=== PATIENT | male | born 1940 | race Caucasian/White ===

== ENCOUNTER 2020-03-22 10:49 | Emergency (ER) | payer OTHER, MEDICARE, SELFPAY ==
[2020-03-22 10:54] VITALS: BP 158/70; PULSE 70; RESP 18; TEMP 36.7; O2SAT 95; BMI 35.4
--- NOTE | 2020-03-22 11:14 | XRR_ITS ---
PROCEDURE INFORMATION: Exam: XR Left Shoulder Exam date and time: 03/22/2020 11:34 AM Age: 79 years old Clinical indication: Pain; Shoulder; Left; Pain x 2weeks TECHNIQUE: Imaging protocol: XR Left shoulder. Views: 2 or more views. COMPARISON: No relevant prior studies available. FINDINGS: Bones/joints: There is tapering of the distal clavicle which could be due to prior surgery or posttraumatic osteolysis. The glenohumeral joint is grossly within normal limits. Soft tissues: No acute soft tissue abnormality. Other findings: The acromiohumeral interval is normal. XR/XR shoulder LT min 2V* [id number] IMPRESSION: No acute osseous abnormality.
[2020-03-22 13:51] VITALS: BP 139/74; PULSE 69; RESP 18; O2SAT 95
--- NOTE | 2020-03-22 13:51 | ED_ITS ---
HPI - Extremity Problem General: Chief complaint: Extremity Injury, Upper Stated complaint: L SHOULDER & BACK PAIN Time Seen by Provider: 03/22/20 10:56 History of Present Illness: HPI Narrative: 79-year-old male comes in with a shoulder strain. He was seen yesterday at the [place] given anti-inflammatories muscle relaxers and steroids is still giving him quite a bit of pain. He denies any shortness of breath or diaphoresis with it with some related to motion only. He has no chest pain. MD Complaint: other (Upper back pain) Onset (ago): day(s) Pain Consistency: constant Location: left Quality: aching Radiation: none Relieving factors: cold therapy, medication and rest Exacerbating factors: range of motion and palpation Associated symptoms: Deny chest pain, fever(s), rash or short of breath Review of Systems Const: Denies: fever(s), chills, body aches, change in appetite, fatigue or malaise ENMT: Denies: throat pain, ear or mastoid pain, nasal discharge or nasal congestion Card: Denies: chest pain, edema, dyspnea on exertion or orthopnea Resp: Denies: dyspnea, productive cough or non-productive cough GI: Denies: abdominal pain, nausea, vomiting, hematemesis, coffee ground emesis, diarrhea, constipation, bloating, hematochezia or melena : Denies: flank pain, dysuria, urinary frequency or urinary urgency Skin/Breast: Denies: rash or pruritus Physical Exam Const: COMMON NORMALS: no acute distress GENERAL APPEARANCE: cooperative and comfortable ORIENTATION/CONSCIOUSNESS: Yes awake, Yes oriented to person, Yes oriented to place and Yes oriented to time HENMT: COMMON NORMALS: normocephalic and atraumatic HEAD & SCALP: normocephalic and atraumatic Eye: COMMON NORMALS: Equal, round and reactive pupils present, EOMs intact bilaterally, conjunctivae normal and no scleral icterus CONJUNCTIVA: Yes conjunctivae normal PUPIL: Yes Equal, round and reactive pupils present Neck/C-Spine: COMMON NORMALS: full ROM, no lymphadenopathy, supple and no JVD Lymph: LYMPHATIC: no lymphadenopathy noted and no lymphedema noted Resp: COMMON NORMALS: normal respiratory effort, No retractions, No use of accessory muscles and clear to auscultation bilaterally AUSCULTATION: clear to auscultation bilaterally Cardio: COMMON NORMALS: no JVD, regular rate, regular rhythm and No murmurs present (Cardio) RATE: regular rate RHYTHM: regular rhythm GI: COMMON NORMALS: Soft to palpation and No hepatosplenomegaly present AUSCULTATION: Yes normoactive bowel sounds PALPATION: Yes Soft to palpation, No Tenderness to palpation present (GI), No Guarding due to palpation present (GI) and Yes No hepatosplenomegaly present Extremity: COMMON NORMALS: normal to inspection, capillary refill normal, no clubbing, cyanosis or edema, no calf tenderness and no pedal edema Neuro: SENSORIUM/ORIENTATION: Yes oriented to person, Yes oriented to place and Yes oriented to time Skin: COMMON NORMALS: no rashes or lesions noted GENERAL SKIN EXAM: no rashes or lesions noted Course Vital Signs: Vital signs: Vital Signs Temperature 98.0 F 03/22/20 10:54 Pulse Rate 69 03/22/20 13:51 Respiratory Rate 18 03/22/20 13:51 Blood Pressure 139/74 03/22/20 13:51 Pulse Oximetry 95 03/22/20 13:51 MDM - Extremity (Nontraumatic) MDM Narrative: Medical decision making narrative: Reproducible pain with palpation and range of motion. Continue previously prescribed medications. Also give him some tramadol to use PRN follow-up with his primary care doctor if has worsening problems recheck or changes recheck as well in emergency room. Discharge Plan Discharge Patient Disposition: Home Clinical Impression: Right shoulder strain Condition: Stable Prescriptions: New tramadol 50 mg tablet 50 mg PO Q8H PRN (Reason: pain) Qty: 30 RF: 0 No Action multivitamin Tablet 1 tab PO DAILY RF: 0 Lasix 40 mg Tablet 40 mg PO DAILY RF: 0 prednisone 5 mg Tablet 5 mg PO DAILY RF: 0 nifedipine 30 mg Tablet Extended Release 30 mg PO DAILY RF: 0 famotidine 20 mg Tablet 20 mg PO BID RF: 0 Flomax 0.4 mg Capsule 0.4 mg PO DAILY RF: 0 levothyroxine 150 mcg Tablet 150 mcg PO DAILY RF: 0 Advair Diskus 500-50 mcg/dose Blister With Device 1 inh INHALATION DAILY RF: 0 Colace 100 mg Capsule 200 mg PO DAILY RF: 0 gabapentin 100 mg Capsule 100 mg PO BID RF: 0 losartan 100 mg Tablet 100 mg PO DAILY RF: 0 colestipol 1 gram Tablet 2 g PO BID RF: 0 loratadine 10 mg Tablet 10 mg PO DAILY RF: 0 Vitamin D3 25 mcg (1,000 unit) Capsule 25 mcg PO DAILY RF: 0 bupropion HCl 150 mg Tablet Extended Release 24 Hr 150 mg PO BID RF: 0 metoprolol tartrate 25 mg Tablet 25 mg PO DAILY RF: 0 Spiriva with HandiHaler 18 mcg Capsule, W/Inhalation Device 1 cap INHALATION DAILY RF: 0 metformin 1,000 mg Tablet,Er Ponce.Retention 24 Hr See Rx Instructions .ROUTE .COMPLEX RF: 0 Glucos Chond Cplx Advanced 750 mg-100 mg- 125 mg-1.65 mg Tablet 1 tab PO DAILY RF: 0 Fish Oil 1,000 mg (120 mg-180 mg) Capsule 1 cap PO BID RF: 0 Discharge Orders: Discharge Order (Routine); Ordered 03/22/20 Ordered By: Edilberto Mello Referrals: Melissa Ramirez FNP [Primary Care Provider] - Discharge Diet: Advance as tolerated Discharge Activity: Limit activity as instructed Activity Restrictions/Additional Instructions: Follow-up with your primary care doctor if this persists for potential referral for further imaging Discharge Date/Time: 03/22/20 13:52 Coding Level of Care Code ED 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
== END 2020-03-22 13:52 | disposition home or self-care (01) ==
PROVIDERS: Emergency Provider Family Medicine; PCP Nurse Practitioner
DX: S46.911A Strain of unspecified muscle, fascia and tendon at shoulder and upper arm level, right arm, initial encounter (principal); X58.XXXA Exposure to other specified factors, initial encounter
CPT/HCPCS: 12345; 73030; 99281; 99282

== ENCOUNTER 2020-04-09 06:00 | Outpatient (RCR) | payer OTHER, SELFPAY | END 2020-04-23 23:59 | disposition home or self-care (01) | LOC: WPT 06:00 | PROVIDERS: PCP Nurse Practitioner; Referring Provider Nurse Practitioner Family; Visit Provider Nurse Practitioner Family | DX: S46.89 Other injury of other muscles, fascia and tendons at shoulder and upper arm level (principal); X58.XXXD Exposure to other specified factors, subsequent encounter | CPT/HCPCS: 97110; 97163 ==

== ENCOUNTER 2020-04-23 10:46 | Outpatient (CLI) | payer MEDICARE, OTHER, SELFPAY ==
--- NOTE | 2020-04-23 11:00 | MR_ITS ---
WS: [id number] MRI THORACIC SPINE noncontrast. HISTORY: M51.34 Other intervertebral disc degeneration, back pain. COMPARISON: None available. TECHNIQUE: Multiplanar sequences are performed in sagittal and axial planes. Mild straightening of the normal thoracic spine. T5 and T11 hemangiomas. No fracture. No acute marrow edema. Signal within the cord is normal. T1-2: Normal. T2-3: Normal. T3-4: Small RIGHT paracentral protrusion without stenosis. T4-5: Normal. T5-6: Normal. T6-7: Normal. T7-8: Normal. T8-9: Mild bilateral facet joint arthritis with mild foraminal narrowing. T9-10: Mild bilateral facet joint arthritis and foraminal narrowing. Increased T2 signal in the LEFT pedicle of T8 10. Probably a small hemangioma. T10-11: Mild facet joint arthritis. Ligamentum flavum hypertrophy and osteophytes encroach upon the posterior lateral thecal sac. Mild bilateral foraminal narrowing. T11-12: Mild facet joint arthritis. Mild ectasia of the descending thoracic aorta with no aneurysm. The arch is not well visualized nor t he ascending aorta. MR/MR thoracic spin wo con* [id number] IMPRESSION: 1. No significant central or foraminal stenosis. 2. Mild bilateral foraminal stenosis from T8-9 through T10-11. 3. Normal signal through the thoracic cord.
--- NOTE | 2020-04-23 11:08 | MR_ITS ---
WS: [id number] MRI LEFT SHOULDER HISTORY: STRAIN OF MUSCLE,FASCIA AND TENDON COMPARISON: LEFT shoulder radiographs 03/22/2020. TECHNIQUE: Multiplanar sequences of the shoulder joint are submitted. There is artifact in the soft tissues near the distal LEFT clavicle which is probably from prior surg ksenia. Patient did not provide a history of prior shoulder surgery. Micrometallic artifacts are noted. Partial resection of the distal clavicle. There is significant increased signal in the subacromial an d subdeltoid bursa which is probably postsurgical. There is a small amount of increased signal along the bursal surface of the distal supraspinatus tend on. Very small bursal surface tear is suspected. Majority of the tendon is intact. There is no muscle atrophy or edema. No os acromion. Biceps tendon is not identified in the bicipital groove and could be dislocated or ruptured. There is also increased signal in the anterior labrum suspicious intrasubs tance degeneration. Cannot confirm tear. Osteophytic ridging around the humeral head. Mild glenohumeral joint arthropathy with loss of cartila ge over the glenoid. MR/MR shoulder LT wo con* [id number] IMPRESSION: 1. Extensive postsurgical changes are noted near the AC joint. Prior resection of the distal clavicle. 2. Minimal bursal surface tear of the distal supraspinatus. 3. No muscle atrophy. 4. Chronic arthritic changes surrounding the humeral head and at the glenoid. 5. Suspect dislocated or torn biceps tendon. Biceps tendon is not identified i n the bicipital groove.
--- NOTE | 2020-04-23 13:14 | XRR_ITS ---
PROCEDURE INFORMATION: Exam: XR Thoracic Spine, 3 Views Exam date and time: 04/23/2020 1:17 PM Age: 80 years old Clinical indication: Condition or disease; Other: Ddd; Additional info: Ddd thoracic spine TECHNIQUE: Imaging protocol: XR of the thoracic spine, 3 views. COMPARISON: MR thoracic spin wo con* [id number] 04/23/2020 11:31 AM FINDINGS: Vertebrae: Degenerative change. No acute bony injury or malalignment. Soft tissues: Normal caliber of the paraspinous soft tissues. Intraperitoneal space: Surgical clips in the right upper quadrant. XR/XR thoracic spine 3V* [id number] IMPRESSION: Degenerative change.
--- NOTE | 2020-04-23 13:14 | XRR_ITS ---
PROCEDURE INFORMATION: Exam: XR Cervical Spine, 2 or 3 Views Exam date and time: 04/23/2020 1:17 PM Age: 80 years old Clinical indication: Condition or disease; Other: Ddd; Additional info: Ddd cervical spine TECHNIQUE: Imaging protocol: XR of the cervical spine, 2 or 3 views. COMPARISON: No relevant prior studies available. FINDINGS: Vertebrae: Multilevel degenerative change. Anatomic alignment. No instability. Soft tissues: Ligamentous calcification. XR/XR cervical spine fl/ex [id number] IMPRESSION: Multilevel degenerative change.
== END 2020-04-23 10:47 | disposition home or self-care (01) ==
LOC: RADSHAW 10:46
PROVIDERS: Visit Provider Nurse Practitioner Family
DX: M50.30 Other cervical disc degeneration, unspecified cervical region (principal); M51.34 Other intervertebral disc degeneration, thoracic region; Z98.890 Other specified postprocedural states; M48.04 Spinal stenosis, thoracic region
CPT/HCPCS: 72040; 72072; 72146; 73221

== ENCOUNTER 2021-01-18 14:02 | Emergency (ER) | payer MEDICARE, OTHER, SELFPAY ==
[2021-01-18 14:10] VITALS: BP 133/61; PULSE 48; RESP 14; TEMP 37.1; O2SAT 95; BMI 34.7
--- NOTE | 2021-01-18 14:35 | XR_ITS ---
WS: [id number] Exam: XR chest 1V portable [id number] Date/Time of Exam: 01/18/2021 3:18 PM Reason For Exam: CP No previous. Findings: The lungs are clear and fully expanded. Costophrenic angles are sharp. No infiltrates. Bronchovascula r relief appears normal. Cardiac silhouette is unremarkable. Bony elements are intact. XR/XR chest 1V portable [id number] IMPRESSION: Unremarkable chest radiograph.
--- NOTE | 2021-01-18 14:35 | ECG_ITS ---
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 Measurements Intervals [place] Rate: 54 P: 12 SC: 218 QRS: 74 QRSD: 170 T: 74 QT: 462 QTc: 440 Interpretive Statements SINUS BRADYCARDIA WITH FIRST DEGREE AV BLOCK RIGHT BUNDLE BRANCH BLOCK [120+ ms QRS DURATION, UPRIGHT V1, 40+ ms S IN I/aVL/V4/V5/V6] INTERPRETATION BASED ON A DEFAULT AGE OF 40 YEARS No previous ECG available for comparison Electronically Signed On 01-19-2021 9:46:45 CDT by Tori Cole M.D. [id number] f
--- NOTE | 2021-01-18 14:43 | ED_ITS ---
HPI - Weakness General: Chief complaint: Weakness Stated complaint: low bp and shoulder pain Time Seen by Provider: 01/18/21 14:12 Source: patient and family () Mode of arrival: ambulatory Limitations: no limitations History of Present Illness: HPI Narrative: This is an 80-year-old male who presents to the emergency department today with neck pain, pain in both shoulders. Symptoms started this morning. When he checked his BP, the systolic was in the 170's, and later it dropped to the 110's. Both upper extremities are weak. No dizziness. No fever, no chest pain, no difficulty breathing. He denies any urinary symptoms but endorses generalized weakness. MD Complaint: generalized weakness Onset (ago): hour(s) Duration: constant Location: generalized Relieving factors: none Exacerbating factors: none Associated symptoms: Reports headache(s); Denies chest pain, chills, confusion, melena, decreased appetite, diaphoresis, dysuria, easy bruising, fever(s), myalgias, nausea, rash, short of breath, syncope or vomiting Review of Systems General: Reports: 10 or more systems reviewed and unremarkable except in HPI and below Const: Denies: fever(s), chills or diaphoresis Card: Denies: chest pain or syncope GI: Denies: nausea, vomiting or melena : Denies: dysuria Neuro: Reports: headache(s); Denies: confusion Efrain/Lymph: Denies: easy bruising [facility] ED PFSH: Medical History (Updated 01/18/21 @ 18:29 by Sumi Bateman MD, [facility]) BPH (benign prostatic hyperplasia) COPD (chronic obstructive pulmonary disease) DDD (degenerative disc disease), cervical DDD (degenerative disc disease), thoracic Diabetes mellitus Essential hypertension GERD (gastroesophageal reflux disease) Hypothyroid Left shoulder strain Surgical History (Reviewed 01/18/21 @ 14:47 by Smui Bateman MD, [facility]) S/P angioplasty S/P cholecystectomy S/P partial thyroidectomy Patient has 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 S/P rotator cuff repair bilateral Physical Exam Const: COMMON NORMALS: no acute distress, average body habitus, patient oriented x3, no limitations, healthy appearing, alert and well nourished HENMT: COMMON NORMALS: normocephalic, atraumatic and moist oral mucous membranes HEAD & SCALP: normocephalic and atraumatic Neck/C-Spine: COMMON NORMALS: full ROM, supple, no meningeal signs, no JVD and No carotid bruits Resp: COMMON NORMALS: normal respiratory effort, No retractions, No use of accessory muscles, clear to auscultation bilaterally and percussion normal AUSCULTATION: clear to auscultation bilaterally PERCUSSION: percussion normal Cardio: COMMON NORMALS: no JVD, regular rate, regular rhythm, S1 normal heart sound present, S2 normal heart sound present, No gallops present (Cardio), No clicks present (Cardio), No murmurs present (Cardio), No rub (Cardio) and Peripheral pulses 2+ throughout RATE: regular rate RHYTHM: regular rhythm HEART SOUNDS: S1 normal heart sound present and S2 normal heart sound present PERIPHERAL PULSES: Peripheral pulses 2+ throughout GI: COMMON NORMALS: Normal to inspection, nondistended, normoactive bowel sounds present, Soft to palpation, non-tender, No hepatosplenomegaly present, no masses and no bruits PALPATION: Yes Soft to palpation and Yes No hepatosplenomegaly present Extremity: COMMON NORMALS: normal to inspection, full ROM, capillary refill normal, no calf tenderness and no pedal edema Neuro: COMMON NORMALS: patient oriented x3 SENSORIUM/ORIENTATION: Yes alert MENINGEAL SIGNS: Yes no meningeal signs Skin: COMMON NORMALS: no rashes or lesions noted, no wounds, turgor normal, no jaundice, no petechiae and no mottling GENERAL SKIN EXAM: no rashes or lesions noted and turgor normal Course ED course: 1610: Updated him on his initial troponin and his labs. Baseline troponin mildly elevated with 22-hour troponin. Patient and his voiced understanding and they are in agreement with the plan. Reevaluation(s): Reevaluation #1: Discussed his lab and imaging findings with him. Unremarkable. We will discharge him home. He voiced understanding and is in agreement with the plan. Time: 18:26 Vital Signs: Vital signs: Vital Signs Temperature 98.7 F 01/18/21 14:10 Pulse Rate 56 L 01/18/21 14:50 Respiratory Rate 18 01/18/21 14:50 Blood Pressure 134/74 01/18/21 14:50 Pulse Oximetry 96 01/18/21 14:50 MDM - Weakness MDM Narrative: Medical decision making narrative: 80-year-old male who presented to the emergency department with bilateral shoulder pain. Evaluation in the emergency department was negative. He has especially screen for ACS and it was negative. He is discharged home with no new orders. Medical Records: Attestation: I reviewed the patient's medical records. Lab Data: Attestation: I reviewed the patient's lab results. Labs: Lab Results 01/18/21 01/18/21 01/18/21 Range/Units 14:50 14:50 14:50 WBC 7.5 (4.0-10.0) 10^3/ uL RBC 4.78 (4.1-5.3) 10^6/u L Hgb 14.1 (11.7-16.6) g/dL Hct 43.3 (42.0-52.0) % MCV 90.6 (80-94) fL MCH 29.5 (28.0-34.0) pg MCHC 32.6 (30.0-36.0) g/dL RDW 14.2 (12.1-15.1) % Plt Count 255 (130-400) 10^3/c mm MPV 10.1 (7.4-10.4) fL Neut % (Auto) 75.8 % Lymph % (Auto) 16.2 % Butler % (Auto) 4.7 % Eos % (Auto) 2.5 % Baso % (Auto) 0.4 % Neut # (Auto) 5.65 (1.8-7.7) 10^3/u L Lymph # (Auto) 1.2 (0.8-4.8) 10^3/u L Butler # (Auto) 0.4 (0.2-0.9) 10^3/u L Eos # (Auto) 0.2 (0.0-0.8) 10^3/u L Baso # (Auto) 0.0 (0.0-0.1) 10^3/u L Nucleated RBC % (a uto) 0 % Nucleated RBCs # 0.0 /100WBC Sodium 137 (136-145) mmol/L Potassium 4.1 (3.5-5.1) mmol/L Chloride 102 (98-107) mmol/L Carbon Dioxide 23 (22-29) mmol/L Anion Gap 16.1 (5-19) BUN 16 (8-23) mg/dL Creatinine 1.3 H (0.7-1.2) mg/dL GFR Calculation Not Reportable Glucose 147 H (65-115) mg/dL Calculated Osmolal ity 288 (285-295) mOsm/k g Calcium 10.5 (8.5-10.5) mg/dL Total Bilirubin 0.4 (0.15-1.2) mg/dL AST 31 (0-40) U/L ALT 54 H (0-41) U/L Alkaline Phosphata se 102 (40-130) IU/L Troponin T Baselin e 22 H (0-15) ng/L Troponin T 120 Min marycruz (0-15) ng/L Delta Troponin T (0-10) ABS# NT-Pro-B Natriuret Pep 131 (0-450) pg/mL Total Protein 6.7 (6.6-8.7) g/dL Albumin 4.5 (3.5-5.2) g/dL Globulin 2.2 (1.3-4.6) g/dL Urine Color (Yellow) Urine Appearance (CLEAR) Urine pH (5-7) Ur Specific Gravit y (1.005-1.030) Urine Protein (Negative) Urine Glucose (UA) (Normal) Urine Ketones (Negative) Urine Blood (Negative) Urine Nitrate (Negative) Urine Bilirubin (Negative) Urine Urobilinogen (Negative) mg/dL Ur Leukocyte Rocio ase (Negative) 01/18/21 01/18/21 Range/Units 16:50 17:10 WBC (4.0-10.0) 10^3/ uL RBC (4.1-5.3) 10^6/u L Hgb (11.7-16.6) g/dL Hct (42.0-52.0) % MCV (80-94) fL MCH (28.0-34.0) pg MCHC (30.0-36.0) g/dL RDW (12.1-15.1) % Plt Count (130-400) 10^3/c mm MPV (7.4-10.4) fL Neut % (Auto) % Lymph % (Auto) % Butler % (Auto) % Eos % (Auto) % Baso % (Auto) % Neut # (Auto) (1.8-7.7) 10^3/u L Lymph # (Auto) (0.8-4.8) 10^3/u L Butler # (Auto) (0.2-0.9) 10^3/u L Eos # (Auto) (0.0-0.8) 10^3/u L Baso # (Auto) (0.0-0.1) 10^3/u L Nucleated RBC % (a uto) % Nucleated RBCs # /100WBC Sodium (136-145) mmol/L Potassium (3.5-5.1) mmol/L Chloride (98-107) mmol/L Carbon Dioxide (22-29) mmol/L Anion Gap (5-19) BUN (8-23) mg/dL Creatinine (0.7-1.2) mg/dL GFR Calculation Glucose (65-115) mg/dL Calculated Osmolal ity (285-295) mOsm/k g Calcium (8.5-10.5) mg/dL Total Bilirubin (0.15-1.2) mg/dL AST (0-40) U/L ALT (0-41) U/L Alkaline Phosphata se (40-130) IU/L Troponin T Baselin e (0-15) ng/L Troponin T 120 Min marycruz 16.65 H (0-15) ng/L Delta Troponin T -5.35 L (0-10) ABS# NT-Pro-B Natriuret Pep (0-450) pg/mL Total Protein (6.6-8.7) g/dL Albumin (3.5-5.2) g/dL Globulin (1.3-4.6) g/dL Urine Color Yellow (Yellow) Urine Appearance Clear (CLEAR) Urine pH 6 (5-7) Ur Specific Gravit y 1.005 (1.005-1.030) Urine Protein Neg (Negative) Urine Glucose (UA) Norm (Normal) Urine Ketones Negative (Negative) Urine Blood Neg (Negative) Urine Nitrate Negative (Negative) Urine Bilirubin Neg (Negative) Urine Urobilinogen Norm (Negative) mg/dL Ur Leukocyte Rocio ase Negative (Negative) Imaging Data^: CXR: Attestation: I personally reviewed and interpreted this imaging study as follows: Radiologist's impression: [facility], [place] [address]GRcq ReportSigned Patient: Donnie Gonzales #: [id number]: 1940Acct#:[id number]/Sex: 80 / MADM Date: 01/18/21Loc: ERRoom/Bed:Attending Dr: Ordering Provider/Ordering MD: Sumi Bateman MD, [facility] Date of Service: 01/18/21 Procedure(s): XR chest 1V portable [id number] Accession Number(s): [id number] Report Number: [id number] WS: [id number] Exam: XR chest 1V portable [id number] Date/Time of Exam: 01/18/2021 3:18 PM Reason For Exam: CP No previous. Findings: The lungs are clear and fully expanded. Costophrenic angles are sharp. No infiltrates. Bronchovascular relief appears normal. Cardiac silhouette is unremarkable. Bony elements are intact. XR/XR chest 1V portable [id number] IMPRESSION: Unremarkable chest radiograph. Dictated By:Sahniigned By:Kraig Bailey Date/Time:01/18/21 1520DD/ 1519 EKG Data^: EKG 1: Attestation: I personally reviewed and interpreted this EKG as follows: EKG interpretation date: 01/18/21 EKG interpretation time: 15:03 Prior EKG tracings: not available for review Interpretation: Sinus bradycardia with first-degree AV block. Heart rate 54 bpm. Right bundle branch block. No ST changes. EKG 2: Attestation: I personally reviewed and interpreted this EKG as follows: EKG interpretation date: 01/18/21 EKG interpretation time: 17:25 Prior EKG tracings: available for review Interpretation: Sinus bradycardia. Heart rate 56 bpm. Right bundle branch block. No ST changes. No significant change from earlier Discharge Plan Discharge Patient Disposition: Home Clinical Impression: Neck ache Bilateral shoulder pain Qualifiers: Chronicity: unspecified Qualified Code(s): M25.511 - Pain in right shoulder Condition: Stable Prescriptions: Continued bumetanide 1 mg Tablet 1 mg PO DAILY PRN (Reason: LEG SWELLING) RF: 0 hydrochlorothiazide 25 mg tablet 25 mg PO DAILY RF: 0 cefuroxime axetil 500 mg Tablet 500 mg PO DAILY PRN (Reason: UNKNOWN) RF: 0 Adalat CC 60 mg Tablet Extended Release 60 mg PO DAILY RF: 0 Flavonoid 2 tab PO TID RF: 0 Loratab 1 tab PO DAILY PRN (Reason: UNKN) RF: 0 albuterol sulfate See Rx Instructions .ROUTE .COMPLEX RF: 0 multivitamin Tablet 1 tab PO DAILY RF: 0 furosemide [Lasix] 40 mg Tablet 40 mg PO DAILY RF: 0 prednisone 5 mg Tablet 5 mg PO DAILY RF: 0 famotidine 20 mg Tablet 20 mg PO BID RF: 0 tamsulosin [Flomax] 0.4 mg Capsule 0.4 mg PO DAILY RF: 0 levothyroxine 150 mcg Tablet 150 mcg PO DAILY RF: 0 fluticasone propion-salmeterol [Advair Diskus] 500-50 mcg/dose Blister With Device 1 inh INHALATION DAILY RF: 0 docusate sodium [Colace] 100 mg Capsule 200 mg PO DAILY RF: 0 gabapentin 100 mg Capsule 100 mg PO BID RF: 0 losartan 100 mg Tablet 50 mg PO BID RF: 0 colestipol 1 gram Tablet 2 g PO BID RF: 0 loratadine 10 mg Tablet 10 mg PO DAILY RF: 0 cholecalciferol (vitamin D3) [Vitamin D3] 25 mcg (1,000 unit) Capsule 25 mcg PO DAILY RF: 0 bupropion HCl 150 mg Tablet Extended Release 24 Hr 150 mg PO BID RF: 0 metoprolol tartrate 25 mg Tablet 12.5 mg PO BID RF: 0 Spiriva with HandiHaler 18 mcg Capsule, W/Inhalation Device 1 cap INHALATION DAILY RF: 0 metformin 1,000 mg Tablet,Er Ponce.Retention 24 Hr 500 mg PO BID RF: 0 Glucos Chond Cplx Advanced 750 mg-100 mg- 125 mg-1.65 mg Tablet 1 tab PO DAILY RF: 0 omega 1-kkl-wtv-fish oil [Fish Oil] 1,000 mg (120 mg-180 mg) Capsule 1 cap PO BID RF: 0 tramadol 50 mg tablet 50 mg PO Q8H PRN (Reason: pain) Qty: 30 RF: 0 Discharge Orders: Discharge ED (Routine); Ordered 01/18/21 Ordered By: Sumi Bateman Discharge Diet: Usual diet Discharge Activity: Increase activity as tolerated Patient Instructions: Shoulder Sprain (ED), Cervical Sprain (ED) Activity Restrictions/Additional Instructions: Return for any new or worsening symptoms. Follow-up with your primary care provider within 3 days. Continue your home medications. 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
[2021-01-18 14:50] VITALS: BP 134/74; PULSE 56; RESP 18; O2SAT 96
[2021-01-18 14:54] LABS: Basophils % 0.4 %; Eosinophils # 0.2 10^3/uL (0.0-0.8); Eosinophils % 2.5 %; Hematocrit 43.3 % (42.0-52.0); Hemoglobin 14.1 g/dL (11.7-16.6); Lymphocytes # 1.2 10^3/uL (0.8-4.8); Lymphocytes % 16.2 %; Mean Corpuscular HGB Conc 32.6 g/dL (30.0-36.0); Mean Corpuscular Hemoglobin 29.5 pg (28.0-34.0); Mean Corpuscular Volume 90.6 fL (80-94); Mean Platelet Volume 10.1 fL (7.4-10.4); Monocytes # 0.4 10^3/uL (0.2-0.9); Monocytes % 4.7 %; Neutrophils # 5.65 10^3/uL (1.8-7.7); Neutrophils % 75.8 %; Nucleated Red Blood Cells % 0 %; Platelet Count 255 10^3/cmm (130-400); Red Blood Count 4.78 10^6/uL (4.1-5.3); Red Cell Distribution Width 14.2 % (12.1-15.1); White Blood Count 7.5 10^3/uL (4.0-10.0)
[2021-01-18 15:36] LABS: Alanine Aminotransferase 54 U/L (0-41); Albumin Level 4.5 g/dL (3.5-5.2); Alkaline Phosphatase 102 IU/L (40-130); Anion Gap 16.1 (5-19); Aspartate Amino Transferase 31 U/L (0-40); Blood Urea Nitrogen 16 mg/dL (8-23); Calcium 10.5 mg/dL (8.5-10.5); Carbon Dioxide 23 mmol/L (22-29); Chloride 102 mmol/L (98-107); Globulin 2.2 g/dL (1.3-4.6); Glucose 147 mg/dL (65-115); NT Pro B Type Natriuretic Pept 131 pg/mL (0-450); Osmolality Calculated 288 mOsm/kg (285-295); Potassium 4.1 mmol/L (3.5-5.1); Sodium 137 mmol/L (136-145); Total Bilirubin 0.4 mg/dL (0.15-1.2); Total Protein 6.7 g/dL (6.6-8.7)
[2021-01-18 15:53] LABS: Troponin(5th) Baseline 22 ng/L (0-15)
--- NOTE | 2021-01-18 16:35 | ECG_ITS ---
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 Measurements Intervals [place] Rate: 56 P: 11 AL: 200 QRS: -15 QRSD: 176 T: 17 QT: 464 QTc: 450 Interpretive Statements SINUS BRADYCARDIA RIGHT BUNDLE BRANCH BLOCK Compared to ECG 01/18/2021 15:03:30 First degree AV block no longer present Electronically Signed On 01-19-2021 9:52:30 CDT by Tori Cole M.D. [email or web address] adult [id number]
[2021-01-18 16:57] LABS: Add Urine Microscopic? NO; Charge for UA Resulting for Rev
--- NOTE | 2021-01-18 17:09 | PC.PHAR ---
PT BROUGHT IN MEDICATION LIST AND STATED THAT IT WAS UP TO DAY AND CORRECT. HE STATED THAT HE HAD TAKEN HIS MORNING MEDICATIONS TODAY. I CALLED [facility], AND THEY ONLY HAD 3 PRESCRIPTIONS FOR THE LAST 3 MONTHS. THE REST WERE APPARENTLY FILLED AT [facility]. THE LIST THEY BROUGHT ME DOESN'T EXACTLY MATCH THE LIST FROM [facility]. I JUST WENT BY MEDICATION HISTORY, MED LIST FROM THE DE AND THE MED LIST THE PT BROUGHT IN WITH HIM.
[2021-01-18 17:12] LABS: Bilirubin Urine Neg (Negative); Blood Urine Neg (Negative); Glucose Urine UA Norm (Normal); Ketones Urine Negative (Negative); Leukocyte Esterase Urine Negative (Negative); Nitrate Urine Negative (Negative); Protein Urine Neg (Negative); Specific Gravity, Urine 1.005 (1.005-1.030); Urine Appearance Clear (CLEAR); Urine Color Yellow (Yellow); Urobilinogen Urine Norm (Negative); pH Urine 6 (5-7)
[2021-01-18 17:38] LABS: Troponin 5 2HR 16.65 ng/L (0-15)
[2021-01-18 17:39] LABS: Troponin 5 2HR Delta -5.35 ABS# (0-10)
== END 2021-01-18 18:57 | disposition home or self-care (01) ==
PROVIDERS: Emergency Provider Family Medicine
DX: M25.511 Pain in right shoulder (principal); M25.512 Pain in left shoulder; M54.2 Cervicalgia; Z79.84 Long term (current) use of oral hypoglycemic drugs; J44.9 Chronic obstructive pulmonary disease, unspecified; E11.9 Type 2 diabetes mellitus without complications; I10 Essential (primary) hypertension
CPT/HCPCS: 36415; 71045; 80053; 81003; 83880; 84484; 85025; 93005; 99283

== ENCOUNTER 2021-10-10 12:02 | Outpatient (CLI) | payer OTHER, SELFPAY ==
--- NOTE | 2021-10-12 10:58 | ONC CON_ITS ---
Dr. Rocha New Patient Note Patient: Andriy Gonzales Unit #: [id number]: 1940 Dicatated By: Beni Rocha M.D.Date of Visit: Oct 10, 2021 Onc MED New Patient/Consult Referring Physician: Melissa Ramirez A.P.N. Chief Complaint: Prostate cancer. 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 He has multiple medical illnesses including hypertension, hyperlipidemia, type 2 diabetes, COPD, and degenerative arthritis. He also has posttraumatic stress disorder, and he has some memory loss/cognitive dysfunction. [facility] He had been referred to a urologist in regard to elevated PSA and symptoms of bladder outlet obstruction. He was noted to have an asymmetric digital rectal exam. His PSA on 07/23/2021 was 143.200 ng/mL. On 09/03/2021 he underwent TRUS/biopsy. Ultrasound at that time showed a prostate volume of 60.37 g. There were no focal hypoechoic lesions identified. Multiple biopsies from the right lobe were positive for prostate adenocarcinoma. Samples from the right lateral mid and right lateral apex both showed adenocarcinoma with Deckerville score 4+4 = 8. His staging bone scan on 09/19/2021 showed markedly increased segmental radiotracer activity within the left lateral fifth rib and at the anterior aspects of the seventh and eighth ribs. Mild uptake was noted in the lateral sixth rib and in the posterior right seventh rib. There was also markedly increased uptake within the posterior elements of T9 and T10 vertebral bodies and moderately increased uptake within the left posterior T1 vertebral/costovertebral junction. Additional focus of moderately increased uptake was noted in the posterior right iliac bone adjacent to the sacroiliac joint and there was moderate increased uptake within the posterior left iliac crest and right iliac bone superior to the acetabulum. Mild increased uptake was noted in the lower thoracic and lumbar spine. A small focus of mildly increased activity was noted in the right posterior intertrochanteric femur. The findings were consistent with metastatic bone disease, though with possible superimposed posttraumatic changes within the left ribs. Staging CT of the abdomen/pelvis on 10/08/2021 showed prominent prostate gland containing calcifications. It was noted to efface the floor of the urinary bladder. There was no appreciable retroperitoneal lymphadenopathy. Low-density foci were noted in multiple vertebral bodies, but without obvious destructions. Osteoblastic bone lesions were not appreciated. His clinical course was complicated by COVID-19 virus infection in August 2021. Following the biopsy he apparently also had a hospital admission for E. coli sepsis. He had uneventful recovery. He has now moved to this area to be with his daughter, and he is seen for further management of the prostate cancer. He says he feels pretty decent, though he still has somewhat limited activity following the illness in August. He is able to do light work, but he has to rest after 30 to 40 minutes of activity. His ECOG score is 1. He has good appetite, but he had cut back on his eating intentionally, and he had lost about 30 pounds. He still occasionally has a slight fever. He says he sometimes feels really hot. He occasionally has chills and sweating. He has not had sore mouth or throat. He does have occasional cough and some shortness of breath associated with his COPD. He has been having some sharp pain in the left rib cage. 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 He has chronic bowel problems with alternating constipation and diarrhea. He manages it with a stool softener. He still has urinary frequency and nocturia, and he complains of having a weak stream. In addition to the left rib cage pain, he has some pain in his left shoulder. He also reports having left hip pain, but that he attributes to bursitis. He does not complain of headache. He has neuropathy in his hands and feet. He also has some memory loss/cognitive dysfunction. Past Medical History: His medical history includes chronic obstructive pulmonary disease, degenerative arthritis, history of COVID-19 virus infection in August 2021, hyperlipidemia, hypertension, hypothyroidism, memory loss, post traumatic stress disorder, and type II diabetes with peripheral neuropathy. Past Surgical History: He underwent TRUS/biopsy on 09/03/2021. His other surgical/procedural history includes microsurgery on both shoulders, right hemithyroidectomy in 2020, left total knee arthroplasty in 2018, right total knee arthroplasty in 2012, and cholecystectomy in 1968. Medications: Adalat CC 1 Tablet (of 30 mg) Tablet SR 24 HR Oral b.i.d., Advair Diskus 1 Inhalation (of 500-50 mcg/dose) Aerosol Powder, Breath Activated Inhalation b.i.d., Bumetanide 1 Tablet (of 1 mg) Oral daily, buPROPion HCl ER (SR) 1 Tablet (of 150 mg) Tablet SR 12 HR Oral b.i.d., Colestid 2 Tablet (of 1 g) Oral b.i.d., [facility] Fish Oil 2 Capsule (of 1000 mg) Oral b.i.d., Docusate Sodium 4 Capsule (of 100 mg) Oral every am, Donepezil HCl 1 Tablet (of 10 mg) Oral daily, hydroCHLOROthiazide 1 Tablet (of 25 mg) Oral daily, Tiotropium Ernest Monohydrate 1 Capsule (of 18 mcg) Inhalation daily Allergies: Etodolac, Lovastatin, Niacin, NSAIDs, Zetia, and Zocor. Social History: Mr. Gonzales is . He is a retired [employer]. He has a history of smoking at least 2 packs of cigarettes daily, but he quit smoking back in 1968. He has had some alcohol use in the past, but never heavy, and he quit in 1986. Family History: Father of emphysema at age 79. Mother lived to age 92. One brother of heart disease at age 81. His other brother has been treated for prostate cancer. His one sister has been treated for kidney cancer. He has 3 daughters. One has had skin cancer. Another has been treated for multiple cancers including non-Hodgkin's lymphoma, ovarian cancer, and breast cancer. The third has been treated for breast cancer. Review Of Symptoms: Constitutional - He says he feels decent, though he is still recovering from COVID-19 infection in August and he does have limited activity tolerance. He says he is good for 30 to 40 minutes before he has to stop and rest. He has good appetite, but he had cut back on his eating and he has had intentional weight loss of about 30 pounds. He still occasionally has slight fever and he does have occasional episodes of chills and sweating. ECOG score is 1, Eyes - He has had some decline in vision. He has cataracts, ENMT - He has hearing loss and tinnitus. No sinus congestion/drainage. No mouth sores. No sore throat or difficulty swallowing, Hematologic/Lymphatic - No abnormal bruising or bleeding, Respiratory - He has COPD with occasional cough and with some shortness of breath. He has been having some sharp pain in the left rib cage. 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 He has no angina pain and no palpitations, Gastrointestinal - No nausea or vomiting. No heartburn or acid reflux. He has had chronic bowel problems with alternating constipation and diarrhea. He sometimes has red blood in the stool with the constipation, Genitourinary (M) - No dysuria or hematuria. He has urinary frequency and nocturia, and he has a weak stream. No urgency or incontinence, Musculoskeletal - He has pain in the left rib cage and he has been having pain in the left shoulder area. He has pain in the left hip area which he attributes to bursitis, Integumentary - No skin rash or other skin changes, Neurologic - No headache. He has orthostatic lightheadedness. He has neuropathy in his hands and feet. He does have memory loss and cognitive dysfunction, Psychiatric - No anxiety or depression. No insomnia. Vital Signs: Performed on Oct 10, 2021 13:35: 3, 2, 33.19 (HIGH), 2.27 sq.m, 71 in, 93 % (LOW), 69 /min, 18 /min, 170/63 mm(hg) (HIGH), and 238.0 lbs (HIGH). Physical Examination: Constitutional - He appears to be in reasonably good general health, Eyes - Sclerae nonicteric. Conjunctivae clear, ENMT - No lesions noted in the oral cavity, Neck - No mass or thyromegaly, Hematologic/Lymphatic - No cervical, clavicular, or axillary adenopathy, Respiratory - Lungs sound clear with some decrease in air movement bilaterally, Cardiovascular - Heart rhythm is regular. There is no murmur, gallop, or rub noted, Abdomen - Soft and non-tender. Liver and spleen are not enlarged. There is no abdominal mass or ascites noted and there is no inguinal adenopathy, Back/Spine - No spine or CVA tenderness noted, Extremities - No edema. Dorsalis pedis pulses are palpable bilaterally, Integumentary - No rashes. No suspicious skin lesions noted, Neurologic - No focal neurologic deficits noted. Problem List: 1. Shawn score 8 adenocarcinoma of the prostate, by clinical evaluation stage IVB, with evidence of multiple sites of metastatic involvement by bone scan. 2. He is at risk for an hereditary cancer, as he has a positive family history for prostate cancer, breast cancer, and ovarian cancer involving first-degree relatives. 3. Hypertension. 4. Hyperlipidemia. 5. Type 2 diabetes with peripheral neuropathy. 6. COPD. 7. Hypothyroidism. 8. Degenerative arthritis. 9. Posttraumatic stress disorder. 10. He has developing dementia with memory loss/cognitive dysfunction. Problems Addressed with this Encounter and Plan: Patient with Deckerville score 8 adenocarcinoma of the prostate, by clinical evaluation stage IVB, with evidence of multiple sites of metastatic involvement by bone scan. He has a positive family history for prostate cancer, breast cancer, and ovarian cancer involving first-degree relatives, and he is at risk for an hereditary cancer. I reviewed the findings on the imaging studies and the pathology results with the patient and his daughter, and we discussed the clinical implications. He has metastatic prostate cancer. They are aware that the disease is incurable, but it is treatable, and there will be a high probability of response to androgen deprivation therapy. He will now begin treatment with bicalutamide 50 mg daily in preparation for initiating androgen deprivation therapy with Depo-Lupron and enzalutamide. I also will plan to begin monthly denosumab injections for the metastatic bone involvement. When he returns for his initial Depo-Lupron injection, I will obtain baseline laboratory studies to include CBC, comprehensive metabolic profile, repeat PSA level, and a 25-hydroxy vitamin D level. He also will have genetic screening. In the meantime, he will be given a prescription for hydrocodone 5/APAP 325 to take as needed for pain. Signed By: Beni Rocha M.D. <<Signature on File>>
== END 2021-10-10 12:03 | disposition home or self-care (01) ==
PROVIDERS: Visit Provider Internal Medicine Medical Oncology
DX: C61 Malignant neoplasm of prostate (principal); I10 Essential (primary) hypertension; E78.5 Hyperlipidemia, unspecified; E11.9 Type 2 diabetes mellitus without complications; J44.9 Chronic obstructive pulmonary disease, unspecified; E03.9 Hypothyroidism, unspecified; F03.90 Unspecified dementia, unspecified severity, without behavioral disturbance, psychotic disturbance, mood disturbance, and anxiety; Z79.899 Other long term (current) drug therapy; Z86.16 Personal history of COVID-19
CPT/HCPCS: 99205

== ENCOUNTER 2021-10-15 08:55 | Outpatient (CLI) | payer OTHER, SELFPAY ==
[2021-10-15 10:07] LABS: Basophils % 0.4 %; Eosinophils # 0.2 10^3/uL (0.0-0.8); Eosinophils % 2.5 %; Hematocrit 38.6 % (42.0-52.0); Hemoglobin 12.7 g/dL (11.7-16.6); Lymphocytes # 1.1 10^3/uL (0.8-4.8); Lymphocytes % 15.3 %; Mean Corpuscular HGB Conc 32.9 g/dL (30.0-36.0); Mean Corpuscular Hemoglobin 28.9 pg (28.0-34.0); Mean Corpuscular Volume 87.9 fl (80-94); Mean Platelet Volume 9.8 fL (7.4-10.4); Monocytes # 0.4 10^3/uL (0.2-0.9); Monocytes % 5.8 %; Neutrophils # 5.42 10^3/uL (1.8-7.7); Neutrophils % 75.6 %; Nucleated Red Blood Cells % 0 %; Platelet Count 253 10^3/cmm (130-400); Red Blood Count 4.39 10^6/uL (4.1-5.3); Red Cell Distribution Width 15.2 % (12.1-15.1); White Blood Count 7.2 10^3/uL (4.0-10.0)
[2021-10-15 10:42] LABS: 25 Hydroxy Vitamin D 30 ng/mL (30-100); Alanine Aminotransferase 54 U/L (0-41); Albumin Level 4.5 g/dL (3.5-5.2); Alkaline Phosphatase 215 IU/L (40-130); Anion Gap 16.7 (5-19); Aspartate Amino Transferase 31 U/L (0-40); Blood Urea Nitrogen 16 mg/dL (8-23); Calcium 11.1 mg/dL (8.5-10.5); Carbon Dioxide 24 mmol/L (22-29); Chloride 102 mmol/L (98-107); Glucose 122 mg/dL (65-115); Osmolality Calculated 290 mOsm/kg (285-295); Potassium 3.7 mmol/L (3.5-5.1); Sodium 139 mmol/L (136-145); Total Bilirubin 0.7 mg/dL (0.15-1.2); Total Protein 7.5 g/dL (6.6-8.7)
== END 2021-10-15 08:56 | disposition home or self-care (01) ==
PROVIDERS: Visit Provider Internal Medicine Medical Oncology
DX: C61 Malignant neoplasm of prostate (principal)
CPT/HCPCS: 36415; 80053; 82306; 84153; 85025

== ENCOUNTER 2021-10-21 08:05 | Outpatient (CLI) | payer OTHER, SELFPAY ==
[2021-10-21 08:31] LABS: Basophils % 0.4 %; Eosinophils # 0.3 10^3/uL (0.0-0.8); Eosinophils % 3.5 %; Hematocrit 38.8 % (42.0-52.0); Hemoglobin 12.5 g/dL (11.7-16.6); Lymphocytes # 1.3 10^3/uL (0.8-4.8); Lymphocytes % 17.9 %; Mean Corpuscular HGB Conc 32.2 g/dL (30.0-36.0); Mean Corpuscular Hemoglobin 28.9 pg (28.0-34.0); Mean Corpuscular Volume 89.6 fl (80-94); Mean Platelet Volume 9.7 fL (7.4-10.4); Monocytes # 0.5 10^3/uL (0.2-0.9); Monocytes % 6.2 %; Neutrophils # 5.29 10^3/uL (1.8-7.7); Neutrophils % 71.6 %; Nucleated Red Blood Cells % 0 %; Platelet Count 268 10^3/cmm (130-400); Red Blood Count 4.33 10^6/uL (4.1-5.3); Red Cell Distribution Width 15.2 % (12.1-15.1); White Blood Count 7.4 10^3/uL (4.0-10.0)
[2021-10-21 09:05] LABS: 25 Hydroxy Vitamin D 24 ng/mL (30-100); Alanine Aminotransferase 53 U/L (0-41); Albumin Level 4.5 g/dL (3.5-5.2); Alkaline Phosphatase 224 IU/L (40-130); Anion Gap 17.4 (5-19); Aspartate Amino Transferase 33 U/L (0-40); Blood Urea Nitrogen 22 mg/dL (8-23); Calcium 11.3 mg/dL (8.5-10.5); Carbon Dioxide 27 mmol/L (22-29); Chloride 101 mmol/L (98-107); Globulin 3.1 g/dL (1.3-4.6); Glucose 135 mg/dL (65-115); Osmolality Calculated 297 mOsm/kg (285-295); Potassium 4.4 mmol/L (3.5-5.1); Sodium 141 mmol/L (136-145); Total Bilirubin 0.4 mg/dL (0.15-1.2); Total Protein 7.6 g/dL (6.6-8.7)
[2021-10-21] MEDS: leuprolide 22.5 mg Kit IM (10:48)
[2021-10-21] MEDS: denosumab 120 mg SDV SUBCUT (10:50)
[2021-10-23 14:49] LABS: Blood Urine 3+ (Negative); Glucose Urine UA Norm (Normal); Ketones Urine Negative (Negative); Nitrate Urine Negative (Negative); Protein Urine 1+ (Negative); Specific Gravity, Urine 1.015 (1.005-1.030); Urine Appearance Hazy (CLEAR); Urine Color Yellow (Yellow); pH Urine 5 (5-7)
[2021-10-23 14:50] LABS: Add Urine Culture? Yes; Bacteria Urine 1+ /hpf; Bilirubin Urine Neg (Negative); Leukocyte Esterase Urine 2+ (Negative); RBC Urine 25-40 /hpf (0-2); Squamous Epithelial Cell Urine 0-4 /hpf (0-5); Urobilinogen Urine Norm (Negative); WBC Urine >100 /hpf (0-5)
--- NOTE | 2021-10-24 07:36 | ONC FU_ITS ---
Nayeli Head Progress Note Patient: Andriy Gonzales Unit #: [id number]: 1940 Dicatated By: Nayeli Head N.P.Date of Visit:Oct 21, 2021 Onc MED Follow-up/Prog Note Chief Complaint: Prostate cancer. 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 He has multiple medical illnesses including hypertension, hyperlipidemia, type 2 diabetes, COPD, and degenerative arthritis. He also has posttraumatic stress disorder, and he has some memory loss/cognitive dysfunction. [facility] He had been referred to a urologist in regard to elevated PSA and symptoms of bladder outlet obstruction. He was noted to have an asymmetric digital rectal exam. His PSA on 07/23/2021 was 143.200 ng/mL. On 09/03/2021 he underwent TRUS/biopsy. Ultrasound at that time showed a prostate volume of 60.37 g. There were no focal hypoechoic lesions identified. Multiple biopsies from the right lobe were positive for prostate adenocarcinoma. Samples from the right lateral mid and right lateral apex both showed adenocarcinoma with Longview score 4+4 = 8. His staging bone scan on 09/19/2021 showed markedly increased segmental radiotracer activity within the left lateral fifth rib and at the anterior aspects of the seventh and eighth ribs. Mild uptake was noted in the lateral sixth rib and in the posterior right seventh rib. There was also markedly increased uptake within the posterior elements of T9 and T10 vertebral bodies and moderately increased uptake within the left posterior T1 vertebral/costovertebral junction. Additional focus of moderately increased uptake was noted in the posterior right iliac bone adjacent to the sacroiliac joint and there was moderate increased uptake within the posterior left iliac crest and right iliac bone superior to the acetabulum. Mild increased uptake was noted in the lower thoracic and lumbar spine. A small focus of mildly increased activity was noted in the right posterior intertrochanteric femur. The findings were consistent with metastatic bone disease, though with possible superimposed posttraumatic changes within the left ribs. Staging CT of the abdomen/pelvis on 10/08/2021 showed prominent prostate gland containing calcifications. It was noted to efface the floor of the urinary bladder. There was no appreciable retroperitoneal lymphadenopathy. Low-density foci were noted in multiple vertebral bodies, but without obvious destructions. Osteoblastic bone lesions were not appreciated. His clinical course was complicated by COVID-19 virus infection in August 2021. Following the biopsy he apparently also had a hospital admission for E. coli sepsis. He had uneventful recovery. He has now moved to this area to be with his daughter, and he is seen for further management of the prostate cancer. Patient presents today for follow-up and education for Lupron, enzalutamide, and denosumab. He states he is feeling pretty good. He still has to rest after activities. His appetite is good. He has occasional night sweats. No fever or chills. He denies shortness of breath, cough, chest pain. No nausea team. He does have problems with constipation which he takes mwiy-tuq-hfektak medications for and that controls it pretty well. He denies joint or bone pain. No headaches or dizziness. He does have some neuropathy in his feet. Review Of Symptoms:See above. Past Medical History: Chronic obstructive pulmonary disease Degenerative arthritis History of COVID-19 virus infection in August 2021 Hyperlipidemia Hypertension Hypothyroidism Memory loss Post traumatic stress disorder Type 2 diabetes with peripheral neuropathy Past Surgical History: Microsurgery on both shoulders Covid vaccine #3 Moderna in 2020 Covid vaccine #2 Moderna in 2020 Covid vaccine #1 Moderna in 2020 Right hemithyroidectomy in 2020 Left total knee arthroplasty in 2019 Right total knee arthroplasty in 2013 Cholecystectomy in 1969 Allergies: Etodolac, Lovastatin, Niacin, NSAIDs, Zetia, and Zocor. Medications: Adalat CC 1 Tablet (of 30 mg) Tablet SR 24 HR Oral b.i.d. Advair Diskus 1 Inhalation (of 500-50 mcg/dose) Aerosol Powder, Breath Activated Inhalation b.i.d. Aspirin 1 Tablet (of 81 mg) Tablet, chewable Oral daily Bicalutamide 1 Tablet (of 50 mg) Oral daily Bumetanide 1 Tablet (of 1 mg) Oral daily buPROPion HCl ER (SR) 1 Tablet (of 150 mg) Tablet SR 12 HR Oral b.i.d. Colestid 2 Tablet (of 1 g) Oral b.i.d. [facility] Fish Oil 2 Capsule (of 1000 mg) Oral b.i.d. Daily Vitamin 1 Tablet Oral daily Docusate Sodium 4 Capsule (of 100 mg) Oral every am Donepezil HCl 1 Tablet (of 5 mg) Oral daily Glucosamine Chondroitin Complx 1 Tablet Capsule Oral daily hydroCHLOROthiazide 1 Tablet (of 25 mg) Oral daily Loratadine 1 Tablet (of 10 mg) Oral daily Losartan Potassium 1 Tablet (of 100 mg) Oral daily metFORMIN HCl 1 Tablet (of 500 mg) Oral b.i.d. Metoprolol Succinate 1 Tablet (of 25 mg) Capsule ER 24 Hr Sprinkle Oral daily Synthroid 1 Tablet (of 150 mcg) Oral daily Tamsulosin HCl 1 Capsule (of 0.4 mg) Oral daily Tiotropium Edwards Monohydrate 1 Capsule (of 18 mcg) Inhalation daily Vitamin D3 1 Tablet (of 1000 ) Oral daily Family History: Father of emphysema at age 79. Mother lived to age 92. One brother of heart disease at age 81. His other brother has been treated for prostate cancer. His one sister has been treated for kidney cancer. He has 3 daughters. One has had skin cancer. Another has been treated for multiple cancers including non-Hodgkin's lymphoma, ovarian cancer, and breast cancer. The third has been treated for breast cancer. Social History: Mr. Gonzales is . Mr. Gonzales no longer smokes. He has no history of drinking. He is a retired [employer]. He has a history of smoking at least 2 packs of cigarettes daily, but he quit smoking back in 1968. He has had some alcohol use in the past, but never heavy, and he quit in 1986. Physical Examination: Performed on Oct 21, 2021 13:33: Height - 71.00 in, Weight - 235.4 lbs (LOW), BSA - 2.26 sq.m, BMI - 32.83 (HIGH), Temperature - 97.4 F (LOW), Pulse - 72 /min, Respiration - 18 /min, BP - 142/66 mm(hg) (HIGH), O2 Sat - 92 % (LOW), Pain - 0, and Fatigue - 4. Performance Status: 1 - No physically strenuous activity, but ambulatory and able to carry out light or sedentary work (e.g. office work, light house work). (ECOG) Constitutional Alert, cooperative, oriented. Mood and affect appropriate. Appears close to chronological age. Well nourished. Well developed. Head Normocephalic; no scars. Respiratory Lungs are clear to auscultation without rhonchi or wheezing. Cardiovascular Regular rate and rhythm of heart without murmurs, gallops or rubs. Abdomen Non-tender, non-distended, no masses, ascites or hepatosplenomegaly. Good bowel sounds. No guarding or rebound tenderness. Extremities No visible deformities, no cyanosis, clubbing or edema. Pulses 3+ and equal bilaterally. Musculoskeletal No tenderness or swelling, normal range of motion without obvious weakness. Psychiatric Alert and oriented times three. Coherent speech. Verbalizes understanding of our discussions today. Laboratory: Test performed on Oct 21, 2021 08:16 Sodium 141 mmol/L Vitamin D (25-Hydroxy), Total 24 ng/mL Potassium 4.4 mmol/L Chloride 101 mmol/L CO2 27 mmol/L Anion Gap 17.4 BUN 22 mg/dL Creatinine 1.4 mg/dL Cr Clearance (Est) 62.50 mL/min Glucose 135 mg/dL Osmolality - Calculated 297 mOsm/kg Calcium 11.3 mg/dL Protein, Total 7.6 g/dL Albumin 4.5 g/dL Globulin 3.1 g/dL Bilirubin, Total 0.4 mg/dL ALT (SGPT) 53 U/L AST (SGOT) 33 U/L Alkaline Phosphatase 224 IU/L WBC 7.4 10 3/uL RBC 4.33 10 6/uL HGB 12.5 g/dL HCT 38.8 % MCV 89.6 fl MCH 28.9 pg MCHC 32.2 g/dL RDW 15.2 % Platelet Count 268 10 3/cmm MPV 9.7 fL Neutrophils 5.29 10 3/uL Lymphocytes 1.3 10 3/uL Monocytes 0.5 10 3/uL Eosinophils 0.3 10 3/uL Basophils 0.0 10 3/uL Neutrophil % 71.6 % Lymphocyte % 17.9 % Monocyte % 6.2 % Eosinophil % 3.5 % Basophils % 0.4 % NRBC % 0 % PSA 259.700 ng/mL Impression: 1. Longview score 8 adenocarcinoma of the prostate, by clinical evaluation stage IVB, with evidence of multiple sites of metastatic involvement by bone scan. 2. He is at risk for an hereditary cancer, as he has a positive family history for prostate cancer, breast cancer, and ovarian cancer involving first-degree relatives. 3. Hypertension. 4. Hyperlipidemia. 5. Type 2 diabetes with peripheral neuropathy. 6. COPD. 7. Hypothyroidism. 8. Degenerative arthritis. 9. Posttraumatic stress disorder. 10. He has developing dementia with memory loss/cognitive dysfunction. Plan: Patient with Shawn score 8 adenocarcinoma of the prostate, by clinical evaluation stage IVB, with evidence of multiple sites of metastatic involvement by bone scan. He has a positive family history for prostate cancer, breast cancer, and ovarian cancer involving first-degree relatives, and he is at risk for an hereditary cancer. I reviewed the findings on the imaging studies and the pathology results with the patient and his daughter, and we discussed the clinical implications. He has metastatic prostate cancer. They are aware that the disease is incurable, but it is treatable, and there will be a high probability of response to androgen deprivation therapy. He will now begin treatment with bicalutamide 50 mg daily in preparation for initiating androgen deprivation therapy with Depo-Lupron and enzalutamide. I also will plan to begin monthly denosumab injections for the metastatic bone involvement. Education provided on Depo Lupron injections which he will receive today. Indications, side effects and complications were discussed in detail. Education was also provided about enzalutamide which he has with him here in the office today. He was instructed to start taking those. He will receive his first Depo-Lupron injection and denosumab injection today. We will schedule a return visit in 2 weeks with CBC and CMP. Signed By: Nayeli Head N.P. <<Signature on File>>
== END 2021-10-21 08:06 | disposition home or self-care (01) ==
PROVIDERS: Visit Provider Nurse Practitioner Family
DX: Z51.11 Encounter for antineoplastic chemotherapy (principal); C61 Malignant neoplasm of prostate; J44.9 Chronic obstructive pulmonary disease, unspecified; E78.5 Hyperlipidemia, unspecified; I10 Essential (primary) hypertension; E03.9 Hypothyroidism, unspecified; F43.10 Post-traumatic stress disorder, unspecified; E11.42 Type 2 diabetes mellitus with diabetic polyneuropathy; Z79.899 Other long term (current) drug therapy
CPT/HCPCS: 36415; 80053; 82306; 84153; 85025; 96372; 96402; 99215; J0897; J9217

== ENCOUNTER 2021-11-18 06:38 | Outpatient (RCR) | payer OTHER, SELFPAY ==
[2021-11-04 09:06] LABS: Basophils % 0.6 %; Eosinophils # 0.4 10^3/uL (0.0-0.8); Eosinophils % 6.1 %; Hemoglobin 12.3 g/dL (11.7-16.6); Lymphocytes # 1.7 10^3/uL (0.8-4.8); Lymphocytes % 27.3 %; Mean Corpuscular HGB Conc 32.4 g/dL (30.0-36.0); Mean Corpuscular Hemoglobin 29.1 pg (28.0-34.0); Mean Corpuscular Volume 89.8 fl (80-94); Mean Platelet Volume 9.3 fL (7.4-10.4); Monocytes # 0.5 10^3/uL (0.2-0.9); Monocytes % 7.5 %; Neutrophils # 3.62 10^3/uL (1.8-7.7); Neutrophils % 58.2 %; Nucleated Red Blood Cells % 0 %; Platelet Count 235 10^3/cmm (130-400); Red Blood Count 4.23 10^6/uL (4.1-5.3); Red Cell Distribution Width 15.3 % (12.1-15.1); White Blood Count 6.2 10^3/uL (4.0-10.0)
[2021-11-04 09:24] LABS: Alanine Aminotransferase 50 U/L (0-41); Albumin Level 4.3 g/dL (3.5-5.2); Alkaline Phosphatase 192 IU/L (40-130); Anion Gap 13.4 (5-19); Aspartate Amino Transferase 27 U/L (0-40); Blood Urea Nitrogen 18 mg/dL (8-23); Calcium 9.9 mg/dL (8.5-10.5); Carbon Dioxide 27 mmol/L (22-29); Chloride 104 mmol/L (98-107); Globulin 2.6 g/dL (1.3-4.6); Glucose 136 mg/dL (65-115); Osmolality Calculated 294 mOsm/kg (285-295); Potassium 4.4 mmol/L (3.5-5.1); Sodium 140 mmol/L (136-145); Total Bilirubin 0.2 mg/dL (0.15-1.2); Total Protein 6.9 g/dL (6.6-8.7)
--- NOTE | 2021-11-04 19:51 | ONC FU_ITS ---
Dr. Rocha Patient Follow-Up Note Patient: Andriy Gonzales Unit #: [id number]: [id number] Dicatated By: Beni Rocha M.D.Date of Visit:Nov 04, 2021 Onc Med Follow-up/Prog Note Chief Complaint: Prostate cancer. 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 He has multiple medical illnesses including hypertension, hyperlipidemia, type 2 diabetes, COPD, and degenerative arthritis. He also has posttraumatic stress disorder, and he has some memory loss/cognitive dysfunction. [facility] He had been referred to a urologist in regard to elevated PSA and symptoms of bladder outlet obstruction. He was noted to have an asymmetric digital rectal exam. His PSA on 07/23/2021 was 143.200 ng/mL. On 09/03/2021 he underwent TRUS/biopsy. Ultrasound at that time showed a prostate volume of 60.37 g. There were no focal hypoechoic lesions identified. Multiple biopsies from the right lobe were positive for prostate adenocarcinoma. Samples from the right lateral mid and right lateral apex both showed adenocarcinoma with Roberts score 4+4 = 8. His staging bone scan on 09/19/2021 showed markedly increased segmental radiotracer activity within the left lateral fifth rib and at the anterior aspects of the seventh and eighth ribs. Mild uptake was noted in the lateral sixth rib and in the posterior right seventh rib. There was also markedly increased uptake within the posterior elements of T9 and T10 vertebral bodies and moderately increased uptake within the left posterior T1 vertebral/costovertebral junction. Additional focus of moderately increased uptake was noted in the posterior right iliac bone adjacent to the sacroiliac joint and there was moderate increased uptake within the posterior left iliac crest and right iliac bone superior to the acetabulum. Mild increased uptake was noted in the lower thoracic and lumbar spine. A small focus of mildly increased activity was noted in the right posterior intertrochanteric femur. The findings were consistent with metastatic bone disease, though with possible superimposed posttraumatic changes within the left ribs. Staging CT of the abdomen/pelvis on 10/08/2021 showed prominent prostate gland containing calcifications. It was noted to efface the floor of the urinary bladder. There was no appreciable retroperitoneal lymphadenopathy. Low-density foci were noted in multiple vertebral bodies, but without obvious destructions. Osteoblastic bone lesions were not appreciated. His clinical course was complicated by COVID-19 virus infection in August 2021. Following the biopsy he apparently also had a hospital admission for E. coli sepsis. He had uneventful recovery. He had subsequently moved to this area to be with his daughter, and he was seen here on 10/10/2021 for further management of the prostate cancer. He initially began antiandrogen therapy with bicalutamide 50 mg daily, and on 10/21/2021 he began androgen deprivation therapy with Depo-Lupron 22.5 mg of intramuscular injection. He also began on monthly denosumab injections for the metastatic bone involvement. Subsequent to that visit, his antiandrogen therapy was transitioned from bicalutamide to enzalutamide 160 mg daily. His other medical illnesses include hypertension, hyperlipidemia, type 2 diabetes with peripheral neuropathy, hypothyroidism, COPD, and degenerative arthritis. He also has posttraumatic stress disorder and he has some cognitive dysfunction/dementia. He had smoked in the past, least 2 packs of cigarettes daily, but he quit smoking back in 1968. He has a significant family history for cancer, but his genetic screening was negative. He is seen for a follow-up visit. He developed acute urinary retention following his initial injection of Depo-Lupron. He required placement of Bernard catheter. The catheter was removed 2 days later. At that time he also required treatment for urinary tract infection. He has since then continued tamsulosin and his bladder function has been adequate, though he does complain that his urination is slow. He has limited activity tolerance. He does do some light work, but his family indicates that he tends to wear out after about 30 minutes of activity. He does seem to be more fatigued since starting the enzalutamide. He has good appetite. He is not having fever, night sweats, or hot flashes. He complains of having runny sinuses. He has not had sore mouth or throat. He does not complain of cough. He has some shortness of breath with his COPD. He has not been having chest pain. He has no GI complaints other than his bowels tend to alternate between constipation and diarrhea. He has been having pain in his left hip, localizing mainly to the sacroiliac area. He has a little bit of pain in his knees and he occasionally has pain in his right hip. He does not complain of headache. He has occasional orthostatic lightheadedness. He has neuropathy in his hands and feet. Medications: Adalat CC 1 Tablet (of 30 mg) Tablet SR 24 HR Oral b.i.d., Advair Diskus 1 Inhalation (of 500-50 mcg/dose) Aerosol Powder, Breath Activated Inhalation b.i.d., Aspirin 1 Tablet (of 81 mg) Tablet, chewable Oral daily, Bicalutamide 1 Tablet (of 50 mg) Oral daily, Bumetanide 1 Tablet (of 1 mg) Oral daily, buPROPion HCl ER (SR) 1 Tablet (of 150 mg) Tablet SR 12 HR Oral b.i.d., Colestid 2 Tablet (of 1 g) Oral b.i.d., [facility] Fish Oil 2 Capsule (of 1000 mg) Oral b.i.d., Daily Vitamin 1 Tablet Oral daily, Docusate Sodium 4 Capsule (of 100 mg) Oral every am, Donepezil HCl 1 Tablet (of 5 mg) Oral daily, Glucosamine Chondroitin Complx 1 Tablet Capsule Oral daily, hydroCHLOROthiazide 1 Tablet (of 25 mg) Oral daily, Loratadine 1 Tablet (of 10 mg) Oral daily, Losartan Potassium 1 Tablet (of 100 mg) Oral daily, metFORMIN HCl 1 Tablet (of 500 mg) Oral b.i.d., Metoprolol Succinate 1 Tablet (of 25 mg) Capsule ER 24 Hr Sprinkle Oral daily, Synthroid 1 Tablet (of 150 mcg) Oral daily, Tamsulosin HCl 1 Capsule (of 0.4 mg) Oral daily, Tiotropium [place] Monohydrate 1 Capsule (of 18 mcg) Inhalation daily, Vitamin D3 1 Tablet (of 1000 ) Oral daily Allergies: Etodolac, Lovastatin, Niacin, NSAIDs, Zetia, and Zocor. Vital Signs: Performed on Nov 04, 2021 11:25 Height - 71.00 in Weight - 238.0 lbs (HIGH) BSA - 2.27 sq.m BMI - 33.19 (HIGH) Temperature - 97.6 F (LOW) Pulse - 66 /min Respiration - 18 /min BP - 132/61 mm(hg) O2 Sat - 96 % Pain - 4 Fatigue - 3 Physical Examination: Constitutional - He looks pretty good generally, Eyes - Sclerae nonicteric. Conjunctivae clear, ENMT - No lesions noted in the oral cavity, Hematologic/Lymphatic - No cervical, clavicular, or axillary adenopathy, Respiratory - Lungs sound clear with some decrease in air movement bilaterally, Cardiovascular - Heart rhythm is regular. There is a II/ systolic murmur. There is no gallop or rub noted, Abdomen - Soft. Liver and spleen are not enlarged. There is no abdominal mass or ascites noted and there is no inguinal adenopathy, Extremities - No edema, Neurologic - No focal neurologic deficits noted. Lab/Imaging: Test performed on Nov 04, 2021 08:50 Sodium 140 mmol/L Potassium 4.4 mmol/L Chloride 104 mmol/L CO2 27 mmol/L Anion Gap 13.4 BUN 18 mg/dL Creatinine 1.3 mg/dL Cr Clearance (Est) 68.05 mL/min Glucose 136 mg/dL Osmolality - Calculated 294 mOsm/kg Calcium 9.9 mg/dL Protein, Total 6.9 g/dL Albumin 4.3 g/dL Globulin 2.6 g/dL Bilirubin, Total 0.2 mg/dL ALT (SGPT) 50 U/L AST (SGOT) 27 U/L Alkaline Phosphatase 192 IU/L WBC 6.2 10 3/uL RBC 4.23 10 6/uL HGB 12.3 g/dL HCT 38.0 % MCV 89.8 fl MCH 29.1 pg MCHC 32.4 g/dL RDW 15.3 % Platelet Count 235 10 3/cmm MPV 9.3 fL Neutrophils 3.62 10 3/uL Lymphocytes 1.7 10 3/uL Monocytes 0.5 10 3/uL Eosinophils 0.4 10 3/uL Basophils 0.0 10 3/uL Neutrophil % 58.2 % Lymphocyte % 27.3 % Monocyte % 7.5 % Eosinophil % 6.1 % Basophils % 0.6 % NRBC % 0 % PSA 61.310 ng/mL Test performed on Oct 21, 2021 08:16 Vitamin D (25-Hydroxy), Total 24 ng/mL Problem List: 1. Roberts score 8 adenocarcinoma of the prostate, by clinical evaluation stage IVB, with evidence of multiple sites of metastatic involvement by bone scan. 2. He was felt to be at risk for an hereditary cancer, but his genetic screening was negative. 3. Hypertension. 4. Hyperlipidemia. 5. Type 2 diabetes with peripheral neuropathy. 6. COPD. 7. Hypothyroidism. 8. Degenerative arthritis. 9. Posttraumatic stress disorder. 10. He has developing dementia with memory loss/cognitive dysfunction. Problems Addressed with this Encounter and Plan: Patient with Shawn score 8 adenocarcinoma of the prostate, by clinical evaluation stage IVB, with evidence of multiple sites of metastatic involvement by bone scan. He initially began antiandrogen therapy with bicalutamide 50 mg daily. On 10/21/2021 he began androgen deprivation therapy with Depo-Lupron 22.5 mg per intramuscular injection. It caused urinary retention, requiring temporary placement of Bernard catheter. His antiandrogen therapy was subsequently transitioned to enzalutamide 160 mg daily. By PSA level he does appear to be showing response to the treatment. He is having some increase in fatigue, which may be related to the enzalutamide. At least for now, it will be continued at 160 mg daily. He is having some difficulty voiding, and I will have him try increasing tamsulosin to 0.8 mg daily. He is having significant pain in the sacroiliac area on the left side. This may not be related to the prostate cancer, as it does not correlate with abnormal findings on the bone scan. As such, he will be scheduled for MRI of the bony pelvis, and he will have further evaluation as indicated. In the meantime, his pain medication will be changed from hydrocodone/APAP to immediate release oxycodone 15 mg to take up to 4 times a day as needed. Signed By: Beni Rocha M.D. <<Signature on File>>
[2021-11-18 13:09] LABS: Basophils % 0.5 %; Eosinophils # 0.3 10^3/uL (0.0-0.8); Hemoglobin 12.1 g/dL (11.7-16.6); Lymphocytes # 1.3 10^3/uL (0.8-4.8); Lymphocytes % 16.1 %; Mean Corpuscular HGB Conc 32.7 g/dL (30.0-36.0); Mean Corpuscular Hemoglobin 29.4 pg (28.0-34.0); Mean Corpuscular Volume 89.8 fl (80-94); Mean Platelet Volume 9.6 fL (7.4-10.4); Monocytes # 0.6 10^3/uL (0.2-0.9); Monocytes % 6.7 %; Neutrophils # 6.11 10^3/uL (1.8-7.7); Neutrophils % 73.3 %; Nucleated Red Blood Cells % 0 %; Platelet Count 239 10^3/cmm (130-400); Red Blood Count 4.12 10^6/uL (4.1-5.3); Red Cell Distribution Width 15.1 % (12.1-15.1); White Blood Count 8.3 10^3/uL (4.0-10.0)
[2021-11-18 13:40] LABS: Alanine Aminotransferase 35 U/L (0-41); Albumin Level 4.4 g/dL (3.5-5.2); Alkaline Phosphatase 156 IU/L (40-130); Anion Gap 13.3 (5-19); Aspartate Amino Transferase 24 U/L (0-40); Blood Urea Nitrogen 14 mg/dL (8-23); Calcium 10.8 mg/dL (8.5-10.5); Carbon Dioxide 27 mmol/L (22-29); Chloride 101 mmol/L (98-107); Globulin 2.6 g/dL (1.3-4.6); Glucose 108 mg/dL (65-115); Osmolality Calculated 285 mOsm/kg (285-295); Potassium 4.3 mmol/L (3.5-5.1); Sodium 137 mmol/L (136-145); Total Bilirubin 0.4 mg/dL (0.15-1.2)
[2021-11-18] MEDS: denosumab 120 mg SDV SUBCUT (15:18)
--- NOTE | 2021-11-26 21:08 | ONC FU_ITS ---
Nayeli Head Progress Note Patient: Andriy Gonzales Unit #: [id number]: [id number] Dicatated By: Nayeli Head N.P.Date of Visit:Nov 18, 2021 Onc MED Follow-up/Prog Note Chief Complaint: Prostate cancer. 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 He has multiple medical illnesses including hypertension, hyperlipidemia, type 2 diabetes, COPD, and degenerative arthritis. He also has posttraumatic stress disorder, and he has some memory loss/cognitive dysfunction. [facility] He had been referred to a urologist in regard to elevated PSA and symptoms of bladder outlet obstruction. He was noted to have an asymmetric digital rectal exam. His PSA on 07/23/2021 was 143.200 ng/mL. On 09/03/2021 he underwent TRUS/biopsy. Ultrasound at that time showed a prostate volume of 60.37 g. There were no focal hypoechoic lesions identified. Multiple biopsies from the right lobe were positive for prostate adenocarcinoma. Samples from the right lateral mid and right lateral apex both showed adenocarcinoma with Paxton score 4+4 = 8. His staging bone scan on 09/19/2021 showed markedly increased segmental radiotracer activity within the left lateral fifth rib and at the anterior aspects of the seventh and eighth ribs. Mild uptake was noted in the lateral sixth rib and in the posterior right seventh rib. There was also markedly increased uptake within the posterior elements of T9 and T10 vertebral bodies and moderately increased uptake within the left posterior T1 vertebral/costovertebral junction. Additional focus of moderately increased uptake was noted in the posterior right iliac bone adjacent to the sacroiliac joint and there was moderate increased uptake within the posterior left iliac crest and right iliac bone superior to the acetabulum. Mild increased uptake was noted in the lower thoracic and lumbar spine. A small focus of mildly increased activity was noted in the right posterior intertrochanteric femur. The findings were consistent with metastatic bone disease, though with possible superimposed posttraumatic changes within the left ribs. Staging CT of the abdomen/pelvis on 10/08/2021 showed prominent prostate gland containing calcifications. It was noted to efface the floor of the urinary bladder. There was no appreciable retroperitoneal lymphadenopathy. Low-density foci were noted in multiple vertebral bodies, but without obvious destructions. Osteoblastic bone lesions were not appreciated. His clinical course was complicated by COVID-19 virus infection in August 2021. Following the biopsy he apparently also had a hospital admission for E. coli sepsis. He had uneventful recovery. He had subsequently moved to this area to be with his daughter, and he was seen here on 10/10/2021 for further management of the prostate cancer. He initially began antiandrogen therapy with bicalutamide 50 mg daily, and on 10/21/2021 he began androgen deprivation therapy with Depo-Lupron 22.5 mg of intramuscular injection. He also began on monthly denosumab injections for the metastatic bone involvement. Subsequent to that visit, his antiandrogen therapy was transitioned from bicalutamide to enzalutamide 160 mg daily. His other medical illnesses include hypertension, hyperlipidemia, type 2 diabetes with peripheral neuropathy, hypothyroidism, COPD, and degenerative arthritis. He also has posttraumatic stress disorder and he has some cognitive dysfunction/dementia. He had smoked in the past, least 2 packs of cigarettes daily, but he quit smoking back in 1968. He has a significant family history for cancer, but his genetic screening was negative. Patient presents today for follow-up. He continues to have some fatigue and wears out pretty easily. His appetite has been good. He denies fever, chills, night sweats. No sinus drainage or mouth sores. No shortness of breath, cough, chest pain. No GI problems. He continues to have a slow stream but no further urinary retention. He has left hip and leg pain. No headaches or dizziness. He has neuropathy in his hands and feet. Review Of Symptoms: See above. Past Medical History: Chronic obstructive pulmonary disease Degenerative arthritis History of COVID-19 virus infection in August 2021 Hyperlipidemia Hypertension Hypothyroidism Memory loss Post traumatic stress disorder Type 2 diabetes with peripheral neuropathy Past Surgical History: Microsurgery on both shoulders Covid vaccine #3 Moderna in 2020 Covid vaccine #2 Moderna in 2020 Covid vaccine #1 Moderna in 2020 Right hemithyroidectomy in 2020 Left total knee arthroplasty in 2019 Right total knee arthroplasty in 2013 Cholecystectomy in 1969 Allergies: Etodolac, Lovastatin, Niacin, NSAIDs, Zetia, and Zocor. Medications: Adalat CC 1 Tablet (of 30 mg) Tablet SR 24 HR Oral b.i.d. Advair Diskus 1 Inhalation (of 500-50 mcg/dose) Aerosol Powder, Breath Activated Inhalation b.i.d. Aspirin 1 Tablet (of 81 mg) Tablet, chewable Oral daily Bicalutamide 1 Tablet (of 50 mg) Oral daily Bumetanide 1 Tablet (of 1 mg) Oral daily buPROPion HCl ER (SR) 1 Tablet (of 150 mg) Tablet SR 12 HR Oral b.i.d. Colestid 2 Tablet (of 1 g) Oral b.i.d. [facility] Fish Oil 2 Capsule (of 1000 mg) Oral b.i.d. Daily Vitamin 1 Tablet Oral daily Docusate Sodium 4 Capsule (of 100 mg) Oral every am Donepezil HCl 1 Tablet (of 5 mg) Oral daily Glucosamine Chondroitin Complx 1 Tablet Capsule Oral daily hydroCHLOROthiazide 1 Tablet (of 25 mg) Oral daily HYDROcodone-Acetaminophen 1 Tablet (of 5-325 mg) Oral every am Loratadine 1 Tablet (of 10 mg) Oral daily Losartan Potassium 1 Tablet (of 100 mg) Oral daily metFORMIN HCl 1 Tablet (of 500 mg) Oral b.i.d. Metoprolol Succinate 1 Tablet (of 25 mg) Capsule ER 24 Hr Sprinkle Oral daily oxyCODONE HCl 1 Tablet (of 15 mg) Oral ac pm Synthroid 1 Tablet (of 150 mcg) Oral daily Tamsulosin HCl 1 Capsule (of 0.4 mg) Oral daily Tiotropium [place] Monohydrate 1 Capsule (of 18 mcg) Inhalation daily Vitamin D3 1 Tablet (of 1000 ) Oral daily Family History: Father of emphysema at age 79. Mother lived to age 92. One brother of heart disease at age 81. His other brother has been treated for prostate cancer. His one sister has been treated for kidney cancer. He has 3 daughters. One has had skin cancer. Another has been treated for multiple cancers including non-Hodgkin's lymphoma, ovarian cancer, and breast cancer. The third has been treated for breast cancer. Social History: Mr. Gonzales is . Mr. Gonzales no longer smokes. He has no history of drinking. He is a retired [employer]. He has a history of smoking at least 2 packs of cigarettes daily, but he quit smoking back in 1968. He has had some alcohol use in the past, but never heavy, and he quit in 1986. Physical Examination: Performed on Nov 18, 2021 15:00: Height - 71.00 in, Weight - 245.8 lbs (HIGH), BSA - 2.30 sq.m, BMI - 34.28 (HIGH), Temperature - 97.4 F (LOW), Pulse - 66 /min, Respiration - 18 /min, BP - 156/53 mm(hg) (HIGH), O2 Sat - 97 %, Pain - 4, and Fatigue - 3. Performance Status: 1 - No physically strenuous activity, but ambulatory and able to carry out light or sedentary work (e.g. office work, light house work). (ECOG) Constitutional Alert, cooperative, oriented. Mood and affect appropriate. Appears close to chronological age. Well nourished. Well developed. Head Normocephalic; no scars. Respiratory Lungs are clear to auscultation without rhonchi or wheezing. Cardiovascular Regular rate and rhythm of heart without murmurs, gallops or rubs. Abdomen Non-tender, non-distended, no masses, ascites or hepatosplenomegaly. Good bowel sounds. No guarding or rebound tenderness. Musculoskeletal No tenderness or swelling, normal range of motion without obvious weakness. Psychiatric Alert and oriented times three. Coherent speech. Verbalizes understanding of our discussions today. Laboratory: Test performed on Nov 18, 2021 12:52 Sodium 137 mmol/L Potassium 4.3 mmol/L Chloride 101 mmol/L CO2 27 mmol/L Anion Gap 13.3 BUN 14 mg/dL Creatinine 1.1 mg/dL Cr Clearance (Est) 83.0600 mL/min Glucose 108 mg/dL Osmolality - Calculated 285 mOsm/kg Calcium 10.8 mg/dL Protein, Total 7.0 g/dL Albumin 4.4 g/dL Globulin 2.6 g/dL Bilirubin, Total 0.4 mg/dL ALT (SGPT) 35 U/L AST (SGOT) 24 U/L Alkaline Phosphatase 156 IU/L WBC 8.3 10 3/uL RBC 4.12 10 6/uL HGB 12.1 g/dL HCT 37.0 % MCV 89.8 fl MCH 29.4 pg MCHC 32.7 g/dL RDW 15.1 % Platelet Count 239 10 3/cmm MPV 9.6 fL Neutrophils 6.11 10 3/uL Lymphocytes 1.3 10 3/uL Monocytes 0.6 10 3/uL Eosinophils 0.3 10 3/uL Basophils 0.0 10 3/uL Neutrophil % 73.3 % Lymphocyte % 16.1 % Monocyte % 6.7 % Eosinophil % 3.0 % Basophils % 0.5 % NRBC % 0 % PSA 6.750 ng/mL Test performed on Oct 21, 2021 08:16 Vitamin D (25-Hydroxy), Total 24 ng/mL Impression: 1. Shawn score 8 adenocarcinoma of the prostate, by clinical evaluation stage IVB, with evidence of multiple sites of metastatic involvement by bone scan. 2. He was felt to be at risk for an hereditary cancer, but his genetic screening was negative. 3. Hypertension. 4. Hyperlipidemia. 5. Type 2 diabetes with peripheral neuropathy. 6. COPD. 7. Hypothyroidism. 8. Degenerative arthritis. 9. Posttraumatic stress disorder. 10. He has developing dementia with memory loss/cognitive dysfunction. Plan: Patient with Paxton score 8 adenocarcinoma of the prostate, by clinical evaluation stage IVB, with evidence of multiple sites of metastatic involvement by bone scan. He initially began antiandrogen therapy with bicalutamide 50 mg daily. On 10/21/2021 he began androgen deprivation therapy with Depo-Lupron 22.5 mg per intramuscular injection. It caused urinary retention, requiring temporary placement of Bernard catheter. His antiandrogen therapy was subsequently transitioned to enzalutamide 160 mg daily. Patient presents today for follow-up. He is currently on enzalutamide 160 mg p.o. daily and seems to be tolerating it well. His tamsulosin was increased to 0.8 mg daily due to urinary retention and patient is voiding without difficulty although his stream is still slow. An MRI has been ordered for his left hip and leg pain but that has not been performed yet. He had an increase in his pain medication but does not like to take it during the day due to causing drowsiness. He will take the hydrocodone during the day and the oxycodone at bedtime. He is scheduled to receive his Xgeva injection today. He is currently receiving that monthly. He will return to the clinic in 1 month with CBC, CMP, and PSA. Signed By: Nayeli Head N.P. <<Signature on File>>
== END 2021-11-21 23:59 | disposition home or self-care (01) ==
LOC: ONCMED 06:38
PROVIDERS: Internal Medicine Medical Oncology; Visit Provider Nurse Practitioner Family
DX: Z51.11 Encounter for antineoplastic chemotherapy (principal); C61 Malignant neoplasm of prostate; C79.51 Secondary malignant neoplasm of bone; I10 Essential (primary) hypertension; E78.5 Hyperlipidemia, unspecified; E11.42 Type 2 diabetes mellitus with diabetic polyneuropathy; J44.9 Chronic obstructive pulmonary disease, unspecified; E03.9 Hypothyroidism, unspecified; M19.90 Unspecified osteoarthritis, unspecified site; F43.10 Post-traumatic stress disorder, unspecified; F03.91 Unspecified dementia, unspecified severity, with behavioral disturbance; Z79.899 Other long term (current) drug therapy
CPT/HCPCS: 36415; 80053; 84153; 85025; 87077; 87086; 87186; 96372; 99214; 99215; J0897

== ENCOUNTER 2021-11-27 14:39 | Outpatient (CLI) | payer OTHER, SELFPAY ==
--- NOTE | 2021-11-27 14:49 | MR_ITS ---
WS: [id number] MRI PELVIS with and without CONTRAST. COMPARISON: Bone scan 09/19/2021 Multiplanar, multisequence imaging is performed with and without contrast. Sagittal and axial T1 fat sat sequences post-MultiHance 20 cc IV. History: Prostate metastatic disease, LEFT hip pain for 3 months. There are numerous low signal lesions on the T1 sequences with increased signal on the T2 and FLAIR s equences with enhancement throughout the bones of the pelvis. Patient has known prostate metastatic d isease. Numerous bilateral sacral and iliac lesions. The largest distribution is in the RIGHT pelvis on both sides of the SI joint. Additional lesions closely associated with the LEFT and RIGHT sacral n erve roots. Additional metastatic lesions are noted within the lowest lumbar vertebral bodies. There is abnormal T2 signal along the posterior LEFT greater trochanter. This is at the site of the g luteus medius tendon attachment. There is an additional associated metastatic lesion in the posterior proximal femur on the LEFT. Metastatic lesion in the RIGHT femoral head measures 18 mm. Additional s maller lesion in the lesser trochanter. Smaller metastatic lesions in the pubic rami. There is no ascites noted. No adenopathy in the pelvis. Minimally distended urinary bladder. MR/MR pelvis wo/w con [id number] IMPRESSION: 1. Numerous metastatic lesions throughout the bones of the pelvis as previousl y described by bone scan imaging. 2. Metastatic bone lesions are closely associated with the sacral nerve roots in the pelvis, bilateral. 3. Increased signal at the LEFT gluteus medius tendon attachment to the tank car repairer ior greater trochanter. Most likely tendinopathy or partial tear at the inserti on site. May be symptomatic. 4. Additional metastatic lesions bilaterally within the femoral heads and prox imal femurs. No pathologic fracture at this time.
== END 2021-11-27 14:40 | disposition home or self-care (01) ==
LOC: RAD 14:42
PROVIDERS: Visit Provider Internal Medicine Medical Oncology
DX: C61 Malignant neoplasm of prostate (principal); C79.51 Secondary malignant neoplasm of bone
CPT/HCPCS: 72197; A9577

== ENCOUNTER → 2021-11-28 13:05 | Outpatient (BNVA) | payer OTHER, SELFPAY | PROVIDERS: Visit Provider Internal Medicine | DX: I10 Essential (primary) hypertension (principal); E11.9 Type 2 diabetes mellitus without complications; I45.10 Unspecified right bundle-branch block; R00.1 Bradycardia, unspecified | CPT/HCPCS: 93005; 99203; 99204; 99213; 99214 ==

== ENCOUNTER 2021-12-14 21:14 | Emergency (ER) | payer OTHER, MEDICARE, SELFPAY ==
[2021-12-14 21:25] VITALS: BP 214/88; PULSE 65; RESP 20; TEMP 36.4; O2SAT 96; BMI 32.5
--- NOTE | 2021-12-14 21:42 | W.ED.SKABFB ---
Documented by User: MORENA Lewis 12/14/21 22:46 HPI - Skin/Abscess/Foreign Bdy General: Chief complaint: Skin/Abscess/Foreign Body Stated complaint: lft arm has a red line going up it Time Seen by Provider: 12/14/21 21:32 History of Present Illness: [facility] approximately 4 days ago and he started develop a reddened area at the venipuncture site yesterday and is extending up his arm to 3 inches now. Patient denies fever chills nausea or vomiting denies any other problems. Patient is currently taking antibiotics for sinus problems. Associated symptoms: Deny chills, fever(s), nausea or vomiting Review of Systems Const: Denies: fever(s), chills or body aches Eyes: Denies: eye discomfort ENMT: Denies: throat pain Card: Denies: chest pain Resp: Denies: dyspnea GI: Denies: abdominal pain, nausea or vomiting Skin/Breast: Reports: erythema (Left AC space with slight redness coming back up arm x1/2-day); Denies: rash Neuro: Denies: headache(s) Psych: Denies: depression or suicidal ideation PFSH ED PFSH: Medical History (Updated 12/14/21 @ 22:12 by MORENA Lewis) BPH (benign prostatic hyperplasia) COPD (chronic obstructive pulmonary disease) DDD (degenerative disc disease), cervical DDD (degenerative disc disease), thoracic Diabetes mellitus Essential hypertension GERD (gastroesophageal reflux disease) Hypothyroid Left shoulder strain Surgical History S/P angioplasty S/P cholecystectomy S/P partial thyroidectomy Patient has 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 S/P rotator cuff repair bilateral Family History Brother Heart disease Social History Smoking and tobacco status: former smoker (quit 1969) Quit status (tobacco): has quit using tobacco Alcohol intake: never Physical Exam Const: COMMON NORMALS: no acute distress, patient oriented x3 and alert HENMT: COMMON NORMALS: normocephalic and external ears normal HEAD & SCALP: normocephalic EXTERNAL EAR: Yes external ears normal Eye: COMMON NORMALS: EOMs intact bilaterally Neck/C-Spine: COMMON NORMALS: no JVD Resp: COMMON NORMALS: normal respiratory effort and No use of accessory muscles Cardio: COMMON NORMALS: no JVD GI: INSPECTION: Yes normal to inspection Extremity: COMMON NORMALS: normal to inspection and full ROM Neuro: COMMON NORMALS: patient oriented x3 SENSORIUM/ORIENTATION: Yes alert Psych: COMMON NORMALS: mental status grossly normal Skin: COMMON NORMALS: no rashes or lesions noted NARRATIVE SKIN EXAM: Patient has minor redness extending from left AC space where venipuncture was performed 4 days ago and comes up the arm about 2 inches. No tenderness. No swelling noted. GENERAL SKIN EXAM: no rashes or lesions noted Course Vital Signs: Vital signs: Vital Signs Temperature 97.6 F 12/14/21 22:34 Pulse Rate 67 12/14/21 22:34 Respiratory Rate 18 12/14/21 22:34 Blood Pressure 161/82 12/14/21 22:34 Pulse Oximetry 96 12/14/21 22:34 MDM - Skin/Abscess/Foreign Bdy Medicial Decision Making Cellulitis after [facility]. Treated with Rocephin 1 g and told to stay on current antibiotics. [facility]up [facility] on Thursday. Discharge Plan Discharge Patient Disposition: Home Clinical Impression: Cellulitis Condition: Stable Prescriptions: No Action hydrochlorothiazide 25 mg tablet 25 mg PO DAILY Qty: 90 3RF hydralazine 50 mg tablet 50 mg PO TID Qty: 180 3RF bumetanide 1 mg Tablet 1 mg PO DAILY PRN (Reason: LEG SWELLING) 0RF Adalat CC 60 mg Tablet Extended Release 60 mg PO DAILY 0RF Flavonoid 2 tab PO TID 0RF Loratab 1 tab PO DAILY PRN (Reason: UNKN) 0RF albuterol sulfate See Rx Instructions .ROUTE .COMPLEX 0RF Rx Instructions: USE DIRECTED multivitamin Tablet 1 tab PO DAILY 0RF famotidine 20 mg Tablet 20 mg PO BID 0RF tamsulosin [Flomax] 0.4 mg Capsule 0.4 mg PO DAILY 0RF levothyroxine 150 mcg Tablet 150 mcg PO DAILY 0RF Rx Instructions: TAKE IN THE EVENING fluticasone propion-salmeterol [Advair Diskus] 500-50 mcg/dose Blister With Device 1 inh INHALATION DAILY 0RF docusate sodium [Colace] 100 mg Capsule 200 mg PO DAILY 0RF losartan 100 mg Tablet 50 mg PO BID 0RF colestipol 1 gram Tablet 2 g PO BID 0RF loratadine 10 mg Tablet 10 mg PO DAILY 0RF bupropion HCl 150 mg Tablet Extended Release 24 Hr 150 mg PO BID 0RF Spiriva with HandiHaler 18 mcg Capsule, W/Inhalation Device 1 cap INHALATION DAILY 0RF metformin 1,000 mg Tablet,Er Ponce.Retention 24 Hr 500 mg PO BID 0RF Glucos Chond Cplx Advanced 750 mg-100 mg- 125 mg-1.65 mg Tablet 1 tab PO DAILY 0RF omega 2-zat-ktp-fish oil [Fish Oil] 1,000 mg (120 mg-180 mg) Capsule 1 cap PO BID 0RF tramadol 50 mg tablet 50 mg PO Q8H PRN (Reason: pain) Qty: 30 0RF cholecalciferol (vitamin D3) [Vitamin D3] 25 mcg (1,000 unit) capsule 50 mcg PO DAILY 0RF furosemide [Lasix] 40 mg tablet 40 mg PO .PRN 0RF metoprolol tartrate 25 mg tablet 25 mg PO BID 0RF Discharge Orders: Discharge ED (Routine); Ordered 12/14/21 Ordered By: Francisco Valderrama Discharge Diet: Usual diet Discharge Activity: Resume usual activity Patient Instructions: Cellulitis (ED) Activity Restrictions/Additional Instructions: To present antibiotics. [facility] to reevaluate arm. If worsening symptoms and start developing fever and chills or feeling sick please return to the ER Coding Level of Care Code ED Advanced Clinical Specialist for Chg Fwd Exam Comprehensive Documented by User: López Harrington DO 12/15/21 00:52 HPI - Skin/Abscess/Foreign Bdy General: Chief complaint: Skin/Abscess/Foreign Body Stated complaint: lft arm has a red line going up it Time Seen by Provider: 12/14/21 21:32 ON LICENSE OF [facility] ED ON LICENSE OF [facility]: Medical History (Updated 12/14/21 @ 22:12 by MORENA Lewis) BPH (benign prostatic hyperplasia) COPD (chronic obstructive pulmonary disease) DDD (degenerative disc disease), cervical DDD (degenerative disc disease), thoracic Diabetes mellitus Essential hypertension GERD (gastroesophageal reflux disease) Hypothyroid Left shoulder strain Surgical History S/P angioplasty S/P cholecystectomy S/P partial thyroidectomy Patient has 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 S/P rotator cuff repair bilateral Family History Brother Heart disease Social History Smoking and tobacco status: former smoker (quit 1969) Quit status (tobacco): has quit using tobacco Alcohol intake: never Course Vital Signs: Vital signs: Vital Signs Temperature 97.6 F 12/14/21 22:34 Pulse Rate 67 12/14/21 22:34 Respiratory Rate 18 12/14/21 22:34 Blood Pressure 161/82 12/14/21 22:34 Pulse Oximetry 96 12/14/21 22:34 MDM - Skin/Abscess/Foreign Bdy Medicial Decision Making Cellulitis after [facility]. Treated with Rocephin 1 g and told to stay on current antibiotics. [facility]. This patient was originally seen by MORENA Juan.? I agree with his history, evaluation, and treatment. Discharge Plan Discharge Patient Disposition: Home Clinical Impression: Cellulitis Condition: Stable Prescriptions: No Action hydrochlorothiazide 25 mg tablet 25 mg PO DAILY Qty: 90 3RF hydralazine 50 mg tablet 50 mg PO TID Qty: 180 3RF bumetanide 1 mg Tablet 1 mg PO DAILY PRN (Reason: LEG SWELLING) 0RF Adalat CC 60 mg Tablet Extended Release 60 mg PO DAILY 0RF Flavonoid 2 tab PO TID 0RF Loratab 1 tab PO DAILY PRN (Reason: UNKN) 0RF albuterol sulfate See Rx Instructions .ROUTE .COMPLEX 0RF Rx Instructions: USE DIRECTED multivitamin Tablet 1 tab PO DAILY 0RF famotidine 20 mg Tablet 20 mg PO BID 0RF tamsulosin [Flomax] 0.4 mg Capsule 0.4 mg PO DAILY 0RF levothyroxine 150 mcg Tablet 150 mcg PO DAILY 0RF Rx Instructions: TAKE IN THE EVENING fluticasone propion-salmeterol [Advair Diskus] 500-50 mcg/dose Blister With Device 1 inh INHALATION DAILY 0RF docusate sodium [Colace] 100 mg Capsule 200 mg PO DAILY 0RF losartan 100 mg Tablet 50 mg PO BID 0RF colestipol 1 gram Tablet 2 g PO BID 0RF loratadine 10 mg Tablet 10 mg PO DAILY 0RF bupropion HCl 150 mg Tablet Extended Release 24 Hr 150 mg PO BID 0RF Spiriva with HandiHaler 18 mcg Capsule, W/Inhalation Device 1 cap INHALATION DAILY 0RF metformin 1,000 mg Tablet,Er Ponce.Retention 24 Hr 500 mg PO BID 0RF Glucos Chond Cplx Advanced 750 mg-100 mg- 125 mg-1.65 mg Tablet 1 tab PO DAILY 0RF omega 1-fuc-rbv-fish oil [Fish Oil] 1,000 mg (120 mg-180 mg) Capsule 1 cap PO BID 0RF tramadol 50 mg tablet 50 mg PO Q8H PRN (Reason: pain) Qty: 30 0RF cholecalciferol (vitamin D3) [Vitamin D3] 25 mcg (1,000 unit) capsule 50 mcg PO DAILY 0RF furosemide [Lasix] 40 mg tablet 40 mg PO .PRN 0RF metoprolol tartrate 25 mg tablet 25 mg PO BID 0RF Discharge Orders: Discharge ED (Routine); Ordered 12/14/21 Ordered By: Francisco Valderrama Discharge Diet: Usual diet Discharge Activity: Resume usual activity Patient Instructions: Cellulitis (ED) Activity Restrictions/Additional Instructions: To present antibiotics. [facility] to reevaluate arm. If worsening symptoms and start developing fever and chills or feeling sick please return to the ER Coding Level of Care Code ED Advanced Clinical Specialist for Adrien Ruvalcaba Exam Comprehensive
[2021-12-14] MEDS: cefTRIAXone 1,000 MG in lidocaine 1% 2.1 ML 2.1 MG IM (22:01)
[2021-12-14 22:02] VITALS: BP 165/81; PULSE 66; RESP 18; TEMP 36.4; O2SAT 95
[2021-12-14 22:34] VITALS: BP 161/82; PULSE 67; RESP 18; TEMP 36.4; O2SAT 96
== END 2021-12-14 22:35 | disposition home or self-care (01) ==
PROVIDERS: Emergency Provider Nurse Practitioner Family
DX: L03.114 Cellulitis of left upper limb (principal)
CPT/HCPCS: 96372; 99283; J0696

== ENCOUNTER 2021-12-19 10:54 | Outpatient (RCR) | payer OTHER, MEDICARE, SELFPAY ==
[2021-12-19 11:19] LABS: Basophils % 0.8 %; Eosinophils # 0.2 10^3/uL (0.0-0.8); Eosinophils % 3.4 %; Hematocrit 38.2 % (42.0-52.0); Hemoglobin 12.4 g/dL (11.7-16.6); Lymphocytes # 1.5 10^3/uL (0.8-4.8); Mean Corpuscular HGB Conc 32.5 g/dL (30.0-36.0); Mean Corpuscular Hemoglobin 29.2 pg (28.0-34.0); Mean Corpuscular Volume 89.9 fl (80-94); Mean Platelet Volume 9.7 fL (7.4-10.4); Monocytes # 0.4 10^3/uL (0.2-0.9); Monocytes % 7.3 %; Neutrophils # 3.22 10^3/uL (1.8-7.7); Neutrophils % 60.3 %; Nucleated Red Blood Cells % 0 %; Platelet Count 244 10^3/cmm (130-400); Red Blood Count 4.25 10^6/uL (4.1-5.3); Red Cell Distribution Width 14.7 % (12.1-15.1); White Blood Count 5.3 10^3/uL (4.0-10.0)
[2021-12-19 11:47] LABS: Alanine Aminotransferase 29 U/L (0-41); Albumin Level 4.4 g/dL (3.5-5.2); Alkaline Phosphatase 85 IU/L (40-130); Anion Gap 14.1 (5-19); Aspartate Amino Transferase 25 U/L (0-40); Blood Urea Nitrogen 20 mg/dL (8-23); Calcium 9.5 mg/dL (8.5-10.5); Carbon Dioxide 25 mmol/L (22-29); Chloride 104 mmol/L (98-107); Globulin 2.1 g/dL (1.3-4.6); Glucose 110 mg/dL (65-115); Osmolality Calculated 291 mOsm/kg (285-295); Potassium 4.1 mmol/L (3.5-5.1); Sodium 139 mmol/L (136-145); Total Bilirubin 0.4 mg/dL (0.15-1.2); Total Protein 6.5 g/dL (6.6-8.7)
--- NOTE | 2021-12-19 13:20 | ONC FU_ITS ---
Nayeli Head Progress Note Patient: Andriy Gonzales Unit #: [id number]: [id number] Dicatated By: Nayeli Head N.P.Date of Visit:Dec 19, 2021 Onc MED Follow-up/Prog Note Chief Complaint: Prostate cancer. 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 He has multiple medical illnesses including hypertension, hyperlipidemia, type 2 diabetes, COPD, and degenerative arthritis. He also has posttraumatic stress disorder, and he has some memory loss/cognitive dysfunction. [facility] He had been referred to a urologist in regard to elevated PSA and symptoms of bladder outlet obstruction. He was noted to have an asymmetric digital rectal exam. His PSA on 07/23/2021 was 143.200 ng/mL. On 09/03/2021 he underwent TRUS/biopsy. Ultrasound at that time showed a prostate volume of 60.37 g. There were no focal hypoechoic lesions identified. Multiple biopsies from the right lobe were positive for prostate adenocarcinoma. Samples from the right lateral mid and right lateral apex both showed adenocarcinoma with [place] score 4+4 = 8. His staging bone scan on 09/19/2021 showed markedly increased segmental radiotracer activity within the left lateral fifth rib and at the anterior aspects of the seventh and eighth ribs. Mild uptake was noted in the lateral sixth rib and in the posterior right seventh rib. There was also markedly increased uptake within the posterior elements of T9 and T10 vertebral bodies and moderately increased uptake within the left posterior T1 vertebral/costovertebral junction. Additional focus of moderately increased uptake was noted in the posterior right iliac bone adjacent to the sacroiliac joint and there was moderate increased uptake within the posterior left iliac crest and right iliac bone superior to the acetabulum. Mild increased uptake was noted in the lower thoracic and lumbar spine. A small focus of mildly increased activity was noted in the right posterior intertrochanteric femur. The findings were consistent with metastatic bone disease, though with possible superimposed posttraumatic changes within the left ribs. Staging CT of the abdomen/pelvis on 10/08/2021 showed prominent prostate gland containing calcifications. It was noted to efface the floor of the urinary bladder. There was no appreciable retroperitoneal lymphadenopathy. Low-density foci were noted in multiple vertebral bodies, but without obvious destructions. Osteoblastic bone lesions were not appreciated. His clinical course was complicated by COVID-19 virus infection in August 2021. Following the biopsy he apparently also had a hospital admission for E. coli sepsis. He had uneventful recovery. He had subsequently moved to this area to be with his daughter, and he was seen here on 10/10/2021 for further management of the prostate cancer. He initially began antiandrogen therapy with bicalutamide 50 mg daily, and on 10/21/2021 he began androgen deprivation therapy with Depo-Lupron 22.5 mg of intramuscular injection. He also began on monthly denosumab injections for the metastatic bone involvement. Subsequent to that visit, his antiandrogen therapy was transitioned from bicalutamide to enzalutamide 160 mg daily. His other medical illnesses include hypertension, hyperlipidemia, type 2 diabetes with peripheral neuropathy, hypothyroidism, COPD, and degenerative arthritis. He also has posttraumatic stress disorder and he has some cognitive dysfunction/dementia. He had smoked in the past, least 2 packs of cigarettes daily, but he quit smoking back in 1968. He has a significant family history for cancer, but his genetic screening was negative. Patient presents today for follow-up. He states he is having a pretty good day today and feels well. His appetite is good. He denies fever or chills. He has occasional hot flashes. No sinus drainage or mouth sores. No shortness of breath, cough, chest pain. No nausea or vomiting no diarrhea or constipation. He still has urinary hesitancy but no retention. He has left hip and left leg pain. Today its not too bad. He had an MRI of the left hip on 11/28/2021. Review Of Symptoms: See above. Past Medical History: Chronic obstructive pulmonary disease Degenerative arthritis History of COVID-19 virus infection in August 2021 Hyperlipidemia Hypertension Hypothyroidism Memory loss Post traumatic stress disorder Type 2 diabetes with peripheral neuropathy Past Surgical History: Microsurgery on both shoulders Covid vaccine #3 Moderna in 2020 Covid vaccine #2 Moderna in 2020 Covid vaccine #1 Moderna in 2020 Right hemithyroidectomy in 2020 Left total knee arthroplasty in 2019 Right total knee arthroplasty in 2012 Cholecystectomy in 1969 Allergies: Etodolac, Lovastatin, Niacin, NSAIDs, Zetia, and Zocor. Medications: Advair Diskus 1 Inhalation (of 500-50 mcg/dose) Aerosol Powder, Breath Activated Inhalation b.i.d. Aspirin 1 Tablet (of 81 mg) Tablet, chewable Oral daily Bicalutamide 1 Tablet (of 50 mg) Oral daily Bumetanide 1 Tablet (of 1 mg) Oral daily buPROPion HCl ER (SR) 1 Tablet (of 150 mg) Tablet SR 12 HR Oral b.i.d. Colestid 2 Tablet (of 1 g) Oral b.i.d. [facility] Fish Oil 2 Capsule (of 1000 mg) Oral b.i.d. Daily Vitamin 1 Tablet Oral daily Docusate Sodium 4 Capsule (of 100 mg) Oral every am Donepezil HCl 1 Tablet (of 5 mg) Oral daily Glucosamine Chondroitin Complx 1 Tablet Capsule Oral daily hydrALAZINE HCl 1 Tablet (of 50 mg) Oral t.i.d. hydroCHLOROthiazide 1 Tablet (of 25 mg) Oral daily HYDROcodone-Acetaminophen 1 Tablet (of 5-325 mg) Oral every am Loratadine 1 Tablet (of 10 mg) Oral daily Losartan Potassium 1 Tablet (of 100 mg) Oral daily metFORMIN HCl 1 Tablet (of 500 mg) Oral b.i.d. Metoprolol Succinate 1 Tablet (of 25 mg) Capsule ER 24 Hr Sprinkle Oral daily oxyCODONE HCl 1 Tablet (of 15 mg) Oral ac pm Synthroid 1 Tablet (of 150 mcg) Oral daily Tamsulosin HCl 1 Capsule (of 0.4 mg) Oral daily Tiotropium Coolin Monohydrate 1 Capsule (of 18 mcg) Inhalation daily Vitamin D3 1 Tablet (of 1000 ) Oral daily Family History: Father of emphysema at age 79. Mother lived to age 92. One brother of heart disease at age 81. His other brother has been treated for prostate cancer. His one sister has been treated for kidney cancer. He has 3 daughters. One has had skin cancer. Another has been treated for multiple cancers including non-Hodgkin's lymphoma, ovarian cancer, and breast cancer. The third has been treated for breast cancer. Social History: Mr. Gonzales is . Mr. Gonzales no longer smokes. He has no history of drinking. He is a retired [employer]. He has a history of smoking at least 2 packs of cigarettes daily, but he quit smoking back in 1968. He has had some alcohol use in the past, but never heavy, and he quit in 1986. Physical Examination: Performed on Dec 19, 2021 12:54: Height - 71.00 in, Weight - 240.0 lbs (LOW), BSA - 2.28 sq.m, BMI - 33.47 (HIGH), Temperature - 98.0 F (LOW), Pulse - 75 /min, Respiration - 18 /min, BP - 133/57 mm(hg), O2 Sat - 98 %, Pain - 2, and Fatigue - 4. Performance Status: 1 - No physically strenuous activity, but ambulatory and able to carry out light or sedentary work (e.g. office work, light house work). (ECOG) Constitutional Alert, cooperative, oriented. Mood and affect appropriate. Appears close to chronological age. Well nourished. Well developed. Head Normocephalic; no scars. Respiratory Lungs are clear to auscultation without rhonchi or wheezing. Cardiovascular Regular rate and rhythm of heart without murmurs, gallops or rubs. Abdomen Non-tender, non-distended, no masses, ascites or hepatosplenomegaly. Good bowel sounds. No guarding or rebound tenderness. Musculoskeletal No tenderness or swelling, normal range of motion without obvious weakness. Psychiatric Alert and oriented times three. Coherent speech. Verbalizes understanding of our discussions today. Laboratory: Test performed on Dec 19, 2021 11:07 Sodium 139 mmol/L Potassium 4.1 mmol/L Chloride 104 mmol/L CO2 25 mmol/L Anion Gap 14.1 BUN 20 mg/dL Creatinine 1.1 mg/dL Cr Clearance (Est) 81.10 mL/min Glucose 110 mg/dL Osmolality - Calculated 291 mOsm/kg Calcium 9.5 mg/dL Protein, Total 6.5 g/dL Albumin 4.4 g/dL Globulin 2.1 g/dL Bilirubin, Total 0.4 mg/dL ALT (SGPT) 29 U/L AST (SGOT) 25 U/L Alkaline Phosphatase 85 IU/L WBC 5.3 10 3/uL RBC 4.25 10 6/uL HGB 12.4 g/dL HCT 38.2 % MCV 89.9 fl MCH 29.2 pg MCHC 32.5 g/dL RDW 14.7 % Platelet Count 244 10 3/cmm MPV 9.7 fL Neutrophils 3.22 10 3/uL Lymphocytes 1.5 10 3/uL Monocytes 0.4 10 3/uL Eosinophils 0.2 10 3/uL Basophils 0.0 10 3/uL Neutrophil % 60.3 % Lymphocyte % 28.0 % Monocyte % 7.3 % Eosinophil % 3.4 % Basophils % 0.8 % NRBC % 0 % PSA 1.140 ng/mL Test performed on Oct 21, 2021 08:16 Vitamin D (25-Hydroxy), Total 24 ng/mL Impression: 1. Shawn score 8 adenocarcinoma of the prostate, by clinical evaluation stage IVB, with evidence of multiple sites of metastatic involvement by bone scan. 2. He was felt to be at risk for an hereditary cancer, but his genetic screening was negative. 3. Hypertension. 4. Hyperlipidemia. 5. Type 2 diabetes with peripheral neuropathy. 6. COPD. 7. Hypothyroidism. 8. Degenerative arthritis. 9. Posttraumatic stress disorder. 10. He has developing dementia with memory loss/cognitive dysfunction. Plan: Patient with Shawn score 8 adenocarcinoma of the prostate, by clinical evaluation stage IVB, with evidence of multiple sites of metastatic involvement by bone scan. He initially began antiandrogen therapy with bicalutamide 50 mg daily. On 10/21/2021 he began androgen deprivation therapy with Depo-Lupron 22.5 mg per intramuscular injection. It caused urinary retention, requiring temporary placement of Bernard catheter. His antiandrogen therapy was subsequently transitioned to enzalutamide 160 mg daily. Patient presents today for follow-up. He is currently taking enzalutamide 160 mg p.o. daily and tolerating it very well. His PSA is also responding and is down to 1.140. He will continue taking his enzalutamide 160 mg p.o. daily and he will receive his Xgeva injection today. He will return to clinic in 1 month with CBC, CMP, PSA. An MRI was performed of the pelvis on 11/27/2021 for his left hip pain. They indicated numerous metastatic lesions throughout the bones of the pelvis as previously described by bone scan imaging. Metastatic bone lesions are closely associated with the sacral nerve roots in the pelvis bilateral. Increased signal of the left gluteus medius tendon attachment to the posterior greater trochanter most likely tendinopathy or partial tear at the insertion site. May be symptomatic. Additional metastatic lesions bilaterally within the femoral heads and proximal femurs no pathologic fractures at this time. He will be referred to orthopedic surgery for further evaluation of the left hip. Signed By: Nayeli Head N.P. <<Signature on File>>
[2021-12-19] MEDS: denosumab 120 mg SDV SUBCUT (13:26)
== END 2021-12-21 23:59 | disposition home or self-care (01) ==
LOC: ONCMED 10:54
PROVIDERS: Visit Provider Nurse Practitioner Family
DX: Z51.11 Encounter for antineoplastic chemotherapy (principal); C61 Malignant neoplasm of prostate; C79.51 Secondary malignant neoplasm of bone; Z79.818 Long term (current) use of other agents affecting estrogen receptors and estrogen levels; Z79.899 Other long term (current) drug therapy
CPT/HCPCS: 36415; 80053; 84153; 85025; 96372; 99215; J0897

== ENCOUNTER 2022-01-06 20:40 | Inpatient (IN) | payer OTHER, MEDICARE, SELFPAY ==
--- NOTE | 2022-01-06 20:50 | W.ED.SOB ---
HPI - SOB/Dyspnea General: Chief Complaint: General Medical Stated Complaint: PAIN Time Seen by Provider: 01/06/22 20:49 History of Present Illness: HPI Narrative: Mr. Gonzales is an 81-year-old gentleman with complex past medical history including widely metastatic prostate cancer, diabetes, hypertension presenting to the emergency department due to generalized pain and fever. He reports resting on the couch earlier today when pain became worse. He denies known specific provoking factor. Baseline he has pain in his pelvis, chest, back mostly however does typically well controlled. Today it was moderate severe in intensity. Overall course has persisted. He did note a fever at home. No other specific changes in health, exacerbating, or alleviating factors identified. Onset (ago): hour(s) Timing: constant Severity: severe Exacerbating factors: exertion and movement Known history of: other (Cancer with metastases) Associated symptoms: Reports cough Review of Systems General: Reports: 10 or more systems reviewed and unremarkable except in HPI and below PFSH ED PFSH: Medical History BPH (benign prostatic hyperplasia) COPD (chronic obstructive pulmonary disease) DDD (degenerative disc disease), cervical DDD (degenerative disc disease), thoracic Diabetes mellitus Essential hypertension GERD (gastroesophageal reflux disease) Hypothyroid Left shoulder strain Surgical History S/P angioplasty S/P cholecystectomy S/P partial thyroidectomy Patient has 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 S/P rotator cuff repair bilateral Family History Brother Heart disease Social History Smoking and tobacco status: former smoker (quit 1969) Quit status (tobacco): has quit using tobacco Alcohol intake: never Physical Exam Const: COMMON NORMALS: alert GENERAL APPEARANCE: cooperative and well developed HENMT: COMMON NORMALS: normocephalic and atraumatic HEAD & SCALP: normocephalic and atraumatic Eye: COMMON NORMALS: conjunctivae normal CONJUNCTIVA: Yes conjunctivae normal SCLERA: sclerae normal Neck/C-Spine: COMMON NORMALS: supple GENERAL: Yes trachea midline Resp: EFFORT & INSPECTION: Yes able to speak in complete sentences AUSCULTATION: diminished lung sounds Cardio: COMMON NORMALS: regular rate and regular rhythm RATE: regular rate RHYTHM: regular rhythm GI: COMMON NORMALS: Soft to palpation PALPATION: Yes Soft to palpation and No Tenderness to palpation present (GI) PERCUSSION: normal to percussion Extremity: GENERAL: Yes normal exam except as noted and No edema Neuro: COMMON NORMALS: moves all extremities SENSORIUM/ORIENTATION: Yes alert and No Orientation impaired Psych: COMMON NORMALS: mental status grossly normal and Normal thought process present THOUGHT PROCESS: Normal thought process present Course ED course: - Patient was seen and evaluated by me at bedside - Patient placed on cardiac monitors, IV access obtained - Initial evaluation notable for exam as above. - Labs and xrays personally interpreted by me. EKG showing sinus rhythm with right bundle branch block no STEMI. -Analgesia given - Labs notable for leukocytosis, normal hemoglobin. No acute metabolic abnormality to explain patient's symptoms. Urinalysis not concerning for urinary tract infection. - Imaging notable for known metastatic lesion but overall chest x-ray not impressive for obvious cause of patient's worsening symptoms. Given high degree of comorbidity as well as unexplained leukocytosis additional imaging warranted. CT notable for likely pneumonia. - Upon serial reexamination after treatment the patient was mildly improved with repeat dose of analgesia - Based on patient history, evaluation, and testing as interpreted the most likely cause of the patient's condition is pneumonia and exacerbation of underlying cancer related pain. Given heart rate greater than 90, reported fever, and leukocytosis in the context of infection inpatient management is reasonable. IV antibiotics ordered. - The results of ED evaluation were discussed with the patient including possible disposition options, apparently the patient has longstanding history of recurrent pneumonia and has recently had a course of both ciprofloxacin and doxycycline and almost always requires IV antibiotics. I therefore discussed plan for admission due to requirement for level of care not available if discharged to prevent significant worsening/deterioration. - Admitting service was contacted and Dr Chowdhury with the hospitalist service agreed to evaluate the patient and subsequently admitted the patient - Patient was admitted without further deterioration or significant events. Note: Click bubbles or prepopulated galvan in note writing are used for assistance with data collection and billing and are inherently more limited than narrative and other text portions of this note. Please use narrative for additional clinical history and defer to narrative/free test for any case of contradictory information. If information appears in only free text or click bubble it should be considered present or absent as reported. Please contact note service writer for clarifications of clinical information or contradictory information. MDM is a brief summary, contradictory or erroneous seeming information should be clarified and full note should be reviewed. Vital Signs: Vital signs: Vital Signs Temperature 98.6 F 01/07/22 07:39 Pulse Rate 79 01/07/22 07:39 Respiratory Rate 18 01/07/22 07:39 Blood Pressure 173/70 01/07/22 07:39 Pulse Oximetry 93 01/07/22 07:39 MDM - SOB/Dyspnea Medical Decision Making 81-year-old gentleman with history of widely metastatic prostate cancer presenting due to worsening pain. Apparently he has had cough and given leukocytosis further investigation was performed. Patient found to have pneumonia and meets SIRS criteria therefore inpatient admission warranted. Medical Records I reviewed the patient's medical records. Lab Data I reviewed the patient's lab results. : 01/06/22 20:50 01/06/22 20:50 Labs/Radiology: Radiology Impressions Chest X-Ray 01/06/22 21:04 IMPRESSION: 1. No acute cardiopulmonary process. 2. Sclerosis with enlargement of the anterolateral left 5th rib. This corresponds to an area of increased radiotracer uptake on prior bone scan and could represent a metastatic focus. Recommend clinical correlation. 3. Incidental/nonacute findings are listed in the report. Chest/Abdomen/Pelvis CT 01/06/22 22:52 IMPRESSION: 1. Left lower lobe bronchopneumonia suspected. 2. Osseous metastatic disease. IMPRESSION: 1. Negative for acute abdominopelvic pathology. 2. Osseous metastatic disease. Laboratory Results WBC 13.7 10^3/uL (4.0-10.0) H 01/06/22 20:50 RBC 4.58 10^6/uL (4.1-5.3) 01/06/22 20:50 Hgb 13.7 g/dL (11.7-16.6) 01/06/22 20:50 Hct 40.9 % (42.0-52.0) L 01/06/22 20:50 MCV 89.3 fl (80-94) 01/06/22 20:50 MCH 29.9 pg (28.0-34.0) 01/06/22 20:50 MCHC 33.5 g/dL (30.0-36.0) 01/06/22 20:50 RDW 14.4 % (12.1-15.1) 01/06/22 20:50 Plt Count 230 10^3/cmm (130-400) 01/06/22 20:50 MPV 11.0 fL (7.4-10.4) H 01/06/22 20:50 Neut % (Auto) 81.7 % 01/06/22 20:50 Lymph % (Auto) 10.8 % 01/06/22 20:50 [place] % (Auto) 6.2 % 01/06/22 20:50 Eos % (Auto) 0.7 % 01/06/22 20:50 Baso % (Auto) 0.2 % 01/06/22 20:50 Neut # (Auto) 11.15 10^3/uL (1.8-7.7) H 01/06/22 20:50 Lymph # (Auto) 1.5 10^3/uL (0.8-4.8) 01/06/22 20:50 [place] # (Auto) 0.8 10^3/uL (0.2-0.9) 01/06/22 20:50 Eos # (Auto) 0.1 10^3/uL (0.0-0.8) 01/06/22 20:50 Baso # (Auto) 0.0 10^3/uL (0.0-0.1) 01/06/22 20:50 Nucleated RBC % (auto) 0 % 01/06/22 20:50 Nucleated RBCs # 0.0 /100WBC 01/06/22 20:50 Sodium 137 mmol/L (136-145) 01/06/22 20:50 Potassium 3.9 mmol/L (3.5-5.1) 01/06/22 20:50 Chloride 100 mmol/L (98-107) 01/06/22 20:50 Carbon Dioxide 22 mmol/L (22-29) 01/06/22 20:50 Anion Gap 18.9 (5-19) 01/06/22 20:50 BUN 19 mg/dL (8-23) 01/06/22 20:50 Creatinine 1.0 mg/dL (0.7-1.2) 01/06/22 20:50 GFR Calculation Not Reportable 01/06/22 20:50 Glucose 101 mg/dL (65-115) 01/06/22 20:50 POC Glucose 119 mg/dL (70-110) H 01/07/22 00:55 Calculated Osmolality 286 mOsm/kg (285-295) 01/06/22 20:50 Lactate 1.8 mmol/L (0.5-2.2) 01/06/22 21:25 Calcium 10.4 mg/dL (8.5-10.5) 01/06/22 20:50 Total Bilirubin 0.5 mg/dL (0.15-1.2) 01/06/22 20:50 AST 28 U/L (0-40) 01/06/22 20:50 ALT 40 U/L (0-41) 01/06/22 20:50 Alkaline Phosphatase 74 IU/L (40-130) 01/06/22 20:50 Troponin T Baseline 16 ng/L (0-15) H 01/06/22 20:50 Troponin T 120 Minute 19.52 ng/L (0-15) H 01/06/22 23:05 Delta Troponin T 3.52 ABS# (0-10) 01/06/22 23:05 Troponin T Hi Sens 6Hr 20.67 ng/L (0-15) H 01/07/22 02:36 Troponin T Hi Sens 6Hr Delta 4.67 ng/L (0-12) 01/07/22 02:36 C-Reactive Protein 11.3 mg/L (0.0-4.9) H 01/06/22 20:50 Total Protein 7.0 g/dL (6.6-8.7) 01/06/22 20:50 Albumin 4.6 g/dL (3.5-5.2) 01/06/22 20:50 Globulin 2.4 g/dL (1.3-4.6) 01/06/22 20:50 Procalcitonin 0.09 ng/mL (0-0.5) 01/06/22 20:50 TSH 2.20 uIU/mL (0.27-4.20) 01/06/22 20:50 Urine Color Yellow (Yellow) 01/06/22 23:23 Urine Appearance Clear (CLEAR) 01/06/22 23: Urine pH 5 (5-7) 01/06/22 23: Ur Specific [place] 1.015 (1.005-1.030) 01/06/22 23: Urine Protein Trace (Negative) 01/06/22 23: Urine Glucose (UA) Norm (Normal) 01/06/22 23:23 Urine Ketones Negative (Negative) 01/06/22 23: Urine Blood Neg (Negative) 01/06/22 23: Urine Nitrate Negative (Negative) 01/06/22 23: Urine Bilirubin Neg (Negative) 01/06/22 23: Prot Sulfosalicylic Acd Negative (Negative) 01/06/22 23: Urine Urobilinogen Norm mg/dL (Negative) 01/06/22 23: Ur Leukocyte Esterase Negative (Negative) 01/06/22 23: Urine RBC 0-4 /hpf (0-2) H 01/06/22 23:23 Urine WBC 0-4 /hpf (0-5) H 01/06/22 23: Ur Squamous Epith Cells 0-4 /hpf (0-5) H 01/06/22 23: Amorphous Sediment Not Reportable 01/06/22 23: Urine Bacteria Trace /hpf (NONE) 01/06/22 23: Urine Mucus 1+ /hpf 01/06/22 23: Discharge Plan Discharge Patient Disposition: Admitted As Inpatient Admit Provider: Darshan Chowdhury Condition: Stable Coding Level of Care Code ED Safety Security Officer for Adrien Ruvalcaba
[2022-01-06 20:54] VITALS: BP 189/82; PULSE 100; RESP 22; TEMP 37.7; O2SAT 94; BMI 32.9
--- NOTE | 2022-01-06 21:04 | XRR_ITS ---
PROCEDURE INFORMATION: Exam: XR Chest Exam date and time: 01/06/2022 9:39 PM Age: 81 years old Clinical indication: Shortness of breath; Additional info: SOB, fever TECHNIQUE: Imaging protocol: XR of the chest. Views: 1 view. COMPARISON: 1. CR XR chest 1V portable [id number] 01/18/2021 3:07 PM 2. NM bone scan whole body* [id number] 09/19/2021 12:20 PM FINDINGS: Lungs: Lungs are clear bilaterally. Pleural spaces: No pleural effusion. No pneumothorax. Heart/Mediastinum: Stable moderate enlargement of the cardiac silhouette. Mediastinal contours are unremarkable. Bones/joints: Sclerosis with enlargement of the anterolateral left 5th rib. This corresponds to an area of increased radiotracer uptake on prior bone scan and could represent a metastatic focus. XR/XR chest 1V portable [id number] IMPRESSION: 1. No acute cardiopulmonary process. 2. Sclerosis with enlargement of the anterolateral left 5th rib. This corresponds to an area of increased radiotracer uptake on prior bone scan and could represent a metastatic focus. Recommend clinical correlation. 3. Incidental/nonacute findings are listed in the report.
--- NOTE | 2022-01-06 21:05 | ECG_ITS ---
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 Measurements Intervals [place] Rate: 95 P: -2 [place]: 195 QRS: -19 QRSD: 165 T: 17 QT: 382 QTc: 481 Interpretive Statements SINUS RHYTHM RIGHT BUNDLE BRANCH BLOCK [120+ ms QRS DURATION, UPRIGHT V1, 40+ ms S IN I/aVL/V4/V5/V6] Compared to ECG 01/18/2021 17:24:56 Sinus bradycardia no longer present Electronically Signed On 01-07-2022 17:14:37 CDT by Marco Soares M.D. [email or web address]
[2022-01-06 21:14] LABS: Basophils % 0.2 %; Eosinophils # 0.1 10^3/uL (0.0-0.8); Eosinophils % 0.7 %; Hematocrit 40.9 % (42.0-52.0); Hemoglobin 13.7 g/dL (11.7-16.6); Lymphocytes # 1.5 10^3/uL (0.8-4.8); Lymphocytes % 10.8 %; Mean Corpuscular HGB Conc 33.5 g/dL (30.0-36.0); Mean Corpuscular Hemoglobin 29.9 pg (28.0-34.0); Mean Corpuscular Volume 89.3 fl (80-94); Monocytes # 0.8 10^3/uL (0.2-0.9); Monocytes % 6.2 %; Neutrophils # 11.15 10^3/uL (1.8-7.7); Neutrophils % 81.7 %; Nucleated Red Blood Cells % 0 %; Platelet Count 230 10^3/cmm (130-400); Red Blood Count 4.58 10^6/uL (4.1-5.3); Red Cell Distribution Width 14.4 % (12.1-15.1); White Blood Count 13.7 10^3/uL (4.0-10.0)
[2022-01-06] MEDS: HYDROmorphone 1 mg/mL INJ 1 mL 0.5 MG IVP ×2 (21:25→23:27)
[2022-01-06 21:39] LABS: Troponin(5th) Baseline 16 ng/L (0-15)
[2022-01-06 21:46] LABS: Procalcitonin 0.09 ng/mL (0-0.5)
[2022-01-06 21:57] LABS: Alanine Aminotransferase 40 U/L (0-41); Albumin Level 4.6 g/dL (3.5-5.2); Alkaline Phosphatase 74 IU/L (40-130); Blood Urea Nitrogen 19 mg/dL (8-23); C Reactive Protein 11.3 mg/L (0.0-4.9); Calcium 10.4 mg/dL (8.5-10.5); Carbon Dioxide 22 mmol/L (22-29); Chloride 100 mmol/L (98-107); Globulin 2.4 g/dL (1.3-4.6); Glucose 101 mg/dL (65-115); Osmolality Calculated 286 mOsm/kg (285-295); Sodium 137 mmol/L (136-145); Total Bilirubin 0.5 mg/dL (0.15-1.2)
[2022-01-06 21:59] LABS: Anion Gap 18.9 (5-19); Aspartate Amino Transferase 28 U/L (0-40); Potassium 3.9 mmol/L (3.5-5.1)
[2022-01-06 22:00] VITALS: BP 159/67; PULSE 95; RESP 18; O2SAT 92
[2022-01-06 22:11] LABS: Lactate (Lactic Acid level) 1.8 mmol/L (0.5-2.2)
--- NOTE | 2022-01-06 22:52 | CTR_ITS ---
PROCEDURE INFORMATION: Exam: CT Chest Without Contrast; Diagnostic Exam date and time: 01/06/2022 11:53 PM Age: 81 years old Clinical indication: Abdominal pain; Other: Pain all over; Prior surgery; Surgery date: 6+ months; Surgery type: Sharla; Additional info: HX metastatic cancer, increased pain, fever, leukocytosis TECHNIQUE: Imaging protocol: Diagnostic computed tomography of the chest without contrast. Radiation optimization: All CT scans at this facility use at least one of these dose optimization techniques: automated exposure control; mA and/or kV adjustment per patient size (includes targeted exams where dose is matched to clinical indication); or iterative reconstruction. COMPARISON: 1. MR pelvis wo/w con [id number] 11/27/2021 3:38 PM 2. CR (CHEST, ) 01/06/2022 9:39 PM RADIATION DOSE METRICS: Total DLP (mGy-cm): 2299.61 FINDINGS: Lungs: Ground-glass opacities posteroinferior left lower lobe. Negative for endobronchial obstruction. No peripheral honeycombing. Pleural spaces: Unremarkable. No pneumothorax. No pleural effusion. Heart: Unremarkable. No cardiomegaly. No pericardial effusion. Lymph nodes: Unremarkable. No enlarged lymph nodes. Vasculature: Unremarkable. No aortic aneurysm. Bones/joints: Scattered osteoblastic lesions. No acute fractures. Unremarkable thoracic spine alignment. Soft tissues: Unremarkable. PROCEDURE INFORMATION: Exam: CT Abdomen And Pelvis Without Contrast Exam date and time: 01/06/2022 11:53 PM Age: 81 years old Clinical indication: Abdominal pain; Other: Pain all over; Prior surgery; Surgery date: 6+ months; Surgery type: Sharla; Additional info: HX metastatic cancer, increased pain, fever, leukocytosis TECHNIQUE: Imaging protocol: Computed tomography of the abdomen and pelvis without contrast. Radiation optimization: All CT scans at this facility use at least one of these dose optimization techniques: automated exposure control; mA and/or kV adjustment per patient size (includes targeted exams where dose is matched to clinical indication); or iterative reconstruction. COMPARISON: 1. MR pelvis wo/w con [id number] 11/27/2021 3:38 PM 2. CR (CHEST, ) 01/06/2022 9:39 PM RADIATION DOSE METRICS: Total DLP (mGy-cm): 2299.61 FINDINGS: Liver: Normal. No mass. Gallbladder and bile ducts: Cholecystectomy. Nondilated biliary system. Pancreas: Normal. No ductal dilation. Spleen: Normal. No splenomegaly. Adrenal glands: Small indeterminate hypoattenuating right adrenal gland nodule measures 2 cm x 2.1 cm. Unremarkable left adrenal gland. Kidneys and ureters: Normal. No hydronephrosis. Stomach and bowel: Unremarkable. No obstruction. No mucosal thickening. Appendix: No evidence of appendicitis. Intraperitoneal space: Unremarkable. No free air. No significant fluid collection. Vasculature: Unremarkable. No abdominal aortic aneurysm. Lymph nodes: Unremarkable. No enlarged lymph nodes. Urinary bladder: Unremarkable as visualized. Reproductive: Unremarkable as visualized. Bones/joints: Scattered osteoblastic lesions. Negative for pathologic fracture. Bilateral L5 pars defects. Soft tissues: Unremarkable. CT/CT chest abd pel wo con IMPRESSION: 1. Left lower lobe bronchopneumonia suspected. 2. Osseous metastatic disease. IMPRESSION: 1. Negative for acute abdominopelvic pathology. 2. Osseous metastatic disease.
[2022-01-06 23:00] VITALS: BP 164/80; PULSE 94; RESP 18; O2SAT 92
[2022-01-06] MEDS: sodium chloride 0.9% 1,000 ML 999 ML IV (23:28)
[2022-01-06 23:30] VITALS: BP 171/80; PULSE 92; RESP 18; O2SAT 92
[2022-01-06 23:34] LABS: Troponin 5 2HR 19.52 ng/L (0-15)
[2022-01-06 23:35] LABS: Troponin 5 2HR Delta 3.52 ABS# (0-10)
[2022-01-07] VITALS (13 sets, daily range): BP systolic 156–182; BP diastolic 61–78; PULSE 79–92; RESP 16–28; TEMP 36.6–37.8; O2SAT 91–96
[2022-01-07 00:52] LABS: Add Urine Microscopic? YES; Bilirubin Urine Neg (Negative); Blood Urine Neg (Negative); Glucose Urine UA Norm (Normal); Ketones Urine Negative (Negative); Leukocyte Esterase Urine Negative (Negative); Nitrate Urine Negative (Negative); Protein Urine Trace (Negative); Specific Gravity, Urine 1.015 (1.005-1.030); Sulfosalicylic Acid Urine Negative (Negative); Urine Appearance Clear (CLEAR); Urine Color Yellow (Yellow); Urobilinogen Urine Norm (Negative); pH Urine 5 (5-7)
[2022-01-07 00:56] LABS: Add Urine Culture? No; Bacteria Urine TRACE /hpf; Mucus Urine 1+ /hpf; RBC Urine 0-4 /hpf (0-2); Squamous Epithelial Cell Urine 0-4 /hpf (0-5); WBC Urine 0-4 /hpf (0-5)
[2022-01-07 00:58] LABS: Glucose Point of Care 119 mg/dL (70-110)
[2022-01-07] MEDS: cefepime 2,000 MG in sodium chloride 0.9% (plus) 50 ML 100 MG IV (02:54)
[2022-01-07 03:08] LABS: Troponin 5 6HR 20.67 ng/L (0-15)
[2022-01-07 03:17] LABS: Troponin 5 6HR Delta 4.67 ng/L (0-12)
--- NOTE | 2022-01-07 03:31 | PM.HP ---
Providers/Chief Complaint Chief Complaint: PAIN History of Present Illness the patient is an 81-year-old male who presented with chief complaint of diffuse pain. The patient has metastatic prostate cancer. During my encounter with the patient, although he was able to answer questions, his 2 family members who I believe are his daughters constantly spoke over him and appeared to have exaggerated his symptoms. They claim that the patient had a temperature of 102.1? at home and was saturating less than 89% at home. The patient is to cough which is nonproductive. He denies nausea, vomiting, wheeze, abdominal pain, diarrhea, myalgia. The patient's family members asked a plethora of questions during the encounter, and interfered with my ability to obtain information directly with the patient. During my physical exam with the patient, to characterized my palpation of his neck as rough . Similar sentiments were expressed to me regarding the assertiveness of the patient's family members by the emergency department physician. Because I am unable to verify the truthfulness of the information that is being provided to me, and due to the patient's immunocompromise state, he will be hospitalized as a precaution Review of Systems General: Reports: 10 or more systems reviewed and unremarkable except in HPI and below Medications/Allergies Home Medications Medication Instructions Recorded Confirmed Last Taken Type bupropion HCl 150 mg 24 hr tablet, 150 mg PO BID 03/22/20 11/28/21 01/18/21 History extended release colestipol 1 gram tablet 2 g PO BID 03/22/20 11/28/21 01/18/21 History docusate sodium 100 mg capsule 200 mg PO DAILY 03/22/20 11/28/21 01/18/21 History (Colace) famotidine 20 mg tablet 20 mg PO BID 03/22/20 11/28/21 01/18/21 History fluticasone 500 mcg-salmeterol 50 1 inh INHALATION DAILY 03/22/20 11/28/21 01/18/21 History mcg/dose blistr powdr for inhalation (Advair Diskus) [id number]-[id number]-hyal 1 tab PO DAILY 03/22/20 11/28/21 01/18/21 History 750 mg-100 mg-125 mg-1.65 mg tablet (Glucosamine Chondroit Complx Advan) levothyroxine 150 mcg tablet 150 mcg PO DAILY 03/22/20 11/28/21 01/17/21 History loratadine 10 mg tablet 10 mg PO DAILY 03/22/20 11/28/21 01/18/21 History losartan 100 mg tablet 50 mg PO BID 03/22/20 11/28/21 01/18/21 History metformin 1,000 mg 24 hr 500 mg PO BID 03/22/20 11/28/21 01/18/21 History tablet,extended release multivitamin 1 tab PO DAILY 03/22/20 11/28/21 01/18/21 History omega 2-oua-btg-fish oil 1,000 mg 1 cap PO BID 03/22/20 11/28/21 01/18/21 History (120 mg-180 mg) capsule (Fish Oil) tamsulosin 0.4 mg capsule (Flomax) 0.4 mg PO DAILY 03/22/20 11/28/21 01/17/21 History tiotropium bromide 18 mcg capsule 1 cap INHALATION DAILY 03/22/20 11/28/21 01/18/21 History with inhalation device (Spiriva with HandiHaler) tramadol 50 mg tablet 50 mg PO Q8H PRN #30 tab 03/22/20 11/28/21 Unknown Rx Flavonoid 2 tab PO TID 01/18/21 11/28/21 01/18/21 History Loratab 1 tab PO DAILY PRN 01/18/21 11/28/21 Unknown History albuterol sulfate See Rx Instructions .ROUTE .COMPLEX 01/18/21 11/28/21 Unknown History bumetanide 1 mg tablet 1 mg PO DAILY PRN 01/18/21 11/28/21 Unknown History nifedipine 60 mg tablet,extended 60 mg PO DAILY 01/18/21 11/28/21 01/18/21 History release (Adalat CC) cholecalciferol (vitamin D3) 25 50 mcg PO DAILY cap 11/28/21 11/28/21 Unknown History mcg (1,000 unit) capsule (Vitamin D3) furosemide 40 mg tablet (Lasix) 40 mg PO .PRN tab 11/28/21 11/28/21 Unknown History metoprolol tartrate 25 mg tablet 25 mg PO BID tab 11/28/21 11/28/21 Unknown History hydrochlorothiazide 25 mg tablet 25 mg PO DAILY #90 tab 12/09/21 Unknown Rx hydrocodone 5 mg-acetaminophen 325 1 tab PO BID PRN 30 Days #60 tab 12/31/21 Unknown Rx mg tablet oxycodone 15 mg tablet 15 mg PO Q6H PRN 30 Days #120 tab 12/31/21 Unknown Rx hydralazine 100 mg tablet 100 mg PO TID #270 tab 01/01/22 Unknown Rx Allergies Allergy/AdvReac Type Severity Reaction Status Date / Time ezetimibe [From Zetia] Allergy Unknown Verified 12/14/21 21:30 niacin Allergy Unknown Verified 12/14/21 21:30 NSAIDS (Non-Steroidal Allergy Unknown Verified 12/14/21 21:30 Anti-Inflamma simvastatin [From Zocor] Allergy Unknown Verified 12/14/21 21:30 Oactool-OEG-WnZ Reductase Allergy Unknown Verified 12/14/21 21:30 Inhibitor [Zgpksoa-Zge-Qaz Reductase Inhibitor] PFSH Acute PFSH: Medical History BPH (benign prostatic hyperplasia) COPD (chronic obstructive pulmonary disease) DDD (degenerative disc disease), cervical DDD (degenerative disc disease), thoracic Diabetes mellitus Essential hypertension GERD (gastroesophageal reflux disease) Hypothyroid Left shoulder strain Surgical History S/P angioplasty S/P cholecystectomy S/P partial thyroidectomy Patient has 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 S/P rotator cuff repair bilateral Family History Brother Heart disease Social History Smoking and tobacco status: former smoker (quit 1968) Quit status (tobacco): has quit using tobacco Alcohol intake: never Vitals/I&O/Wt Last Vital Signs Temp 99.9 F H 01/06/22 20:54 Pulse 89 01/07/22 01:00 Resp 16 01/07/22 01:00 BP 170/71 01/07/22 01:00 Pulse Ox 92 01/07/22 01:00 01/06/22 01/06/22 01/07/22 14:59 22:59 06:59 Intake Total 1000 / 1000 Balance 1000 / 1000 Weight last 48 hrs Weight 107.048 kg Physical Exam Narrative: General: -Alert -No acute distress -No dyspnea -No tachypnea Head: -Atraumatic -Normocephalic Eyes: -Pupils equally round and reactive to light and accommodation -Extraocular muscles intact Neurological: -Cranial nerves II-XII intact Neck: -No jugular venous distention -No thyromegaly -No cervical lymphadenopathy Heart: -Regular rate -Regular rhythm -No murmurs -No gallops -No rubs Lungs: -No wheeze -No rhonchi -No rales ? Abdomen: -Normal bowel sounds in all four quadrants -No rebound -No guarding -No tenderness Extremities: -2/4 pulse in all four extremities -No clubbing -No cyanosis -No edema -No calf tenderness present bilaterally -Negative Cassy?s sign bilaterally Musculoskeletal: -5/5 bilateral upper extremity strength -5/5 bilateral lower extremity strength -Sensorium of bilateral upper extremities are equal and intact -Sensorium of bilateral lower extremities are equal and intact ? Additional Details / Additional Findings / Exceptions / Miscellaneous: Data : 01/06/22 20:50 01/06/22 20:50 Micro: Microbiology 01/06/22 21:29 Blood Culture - Preliminary Blood SPECIMEN COLLECTED 01/06/22 21:25 Blood Culture - Preliminary Blood SPECIMEN COLLECTED A&P Assessment and plan (1) Prostate cancer metastatic to bone: Status: Acute Plan query pneumonia. This is not displayed on chest x-ray and on CT it is described as suspected . The patient was prescribed doxycycline on an outpatient basis. Blood culture ?2 drawn the emergency department pending. A cephamycin 500 Mill grams IV daily plus Rocephin 1 g IV daily plus IV normal saline 75 ML's per hour Metastatic prostate cancer. The patient is currently undergoing chemotherapy. He has not received radiation therapy or undergone surgical intervention. Outpatient follow up with hematology/oncology upon discharge Seasonal allergies History of partial thyroidectomy with resultant hypothyroidism Chronic pain Constipation Neuropathy Degenerative disc disease Depression COPD, not O2 dependent Coronary artery disease, status post NV Diabetes. Will check fasting glucose to before meals and at bedtime and provide insulin sliding scale GERD Hyperlipidemia Hypertension Obesity. The patient becomes regarding lifestyle modification DT Proflex is. Lovenox 30 Mill grams subcu tensely daily Attestations Medical Necessity Statement*: patient's anticipated length of stay is likely going to be less than 2 midnights or what may be a suspected pneumonia however is not definitively displayed on radiographic imaging Coding Level of Care Code Acute Marketing Analytics Manager for Adrien Ruvalcaba Diagnoses Prostate cancer metastatic to bone C61; C79.51
[2022-01-07] MEDS: acetaminophen 500 mg Tablet 1000 MG PO (03:59)
[2022-01-07] MEDS: sodium chloride 0.9% 1,000 ML 75 ML IV ×2 (05:43→17:15)
[2022-01-07] MEDS: azithromycin 500 MG in sodium chloride 0.9% 250 ML 250 MG IV (05:43)
[2022-01-07] MEDS: enoxaparin 30 mg/0.3 mL Syringe SUBCUT (05:44)
[2022-01-07 07:41] LABS: Glucose Point of Care 130 mg/dL (70-110)
[2022-01-07] MEDS: cefTRIAXone 1,000 MG in sodium chloride 0.9% (plus) 50 ML 100 MG IV (10:45)
--- NOTE | 2022-01-07 10:51 | PC.CHAP ---
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 [] Patient/Family/Request visit [] Outpatient visit [] Follow-up visit [] Physician referral [] Code/Alert [x] Routine visit [] Staff referral [] Actively dying [] Patient sleeping [] Family support [] [] Out of room [] Palliative care [] [] Receiving care in room [] Pre-surgical visit [] Trauma [] Long length of stay [] ICU visit [] Other: Relational/Emotional Strength [x] Patient feels connected with others/family/visitors/staff [] Distress [] Loneliness/isolation [] Abandonment Spirituality of Patient [x] Person of [place] [] Attends Gnosticist of their [place] [x] Believes in Prayer [] Reads Bible or Holiness materials [] There are Spiritual issues to be addressed Time Analysis Clerk Interventions [x] Prayer [x] Active listening [] Non-anxious presence [x] Spiritual/emotional support [] Crisis/trauma care [] Spiritual counseling [] Bereavement support [] Provided bereavement packet [] Provided Bible/devotional materials [] Provided toy/stuffed animal, coloring book to patient or family member [] Provided Communion [] Anointing/[place] [] Salvation [x] Completed spiritual assessment [] Other: Impact on Illness or Injury [] Angry [] Fearful [] Anxious [] Often cries [] Exhaustion [] Unable to work [] Unable to attend faith [] Unable to walk/stand [] Unable to read [] Unable to drive [] Unable to eat/drink [] Unable to sleep [] Unable to be with family [] Patient intubated [] Other: Summary Time spent with patient
[2022-01-07] MEDS: levothyroxine 150 mcg Tablet PO (11:14)
[2022-01-07] MEDS: metoprolol succinate ER (24 HR) 25 mg Tablet PO (11:14)
[2022-01-07] MEDS: benzonatate 100 mg Capsule PO (11:39)
[2022-01-07 11:42] LABS: Glucose Point of Care 122 mg/dL (70-110)
--- NOTE | 2022-01-07 13:04 | PM.MISC ---
Miscellaneous Note Purpose of Documentation: Mini progress note Note: Patient seen at bedside with daughter present. We will restart all her home medications. No change assessment and plan as listed in history physical document. I will add DuoNeb every 4 hours as needed, Pulmicort inhaler and Tessalon Perles for cough.
[2022-01-07 13:54] LABS: Procalcitonin 0.09 ng/mL (0-0.5)
[2022-01-07] MEDS: hyDRALAzine 50 mg Tablet PO ×2 (14:04→20:39)
[2022-01-07] MEDS: oxyCODONE 5 mg IR Tab/Cap 15 MG PO (14:16)
[2022-01-07] MEDS: ipratropium-albuterol 3 mL Neb INHALATION ×2 (14:43→20:47)
[2022-01-07 16:47] LABS: Glucose Point of Care 113 mg/dL (70-110)
[2022-01-07] MEDS: losartan 50 mg Tablet 100 MG PO (17:14)
[2022-01-07] MEDS: donepezil 5 MG Tablet 10 MG PO (17:14)
[2022-01-07] MEDS: tamsulosin 0.4 mg Capsule 0.8 MG PO (17:15)
[2022-01-07] MEDS: hydroCHLOROthiazide 25 mg Tablet PO (17:15)
[2022-01-07] MEDS: buPROPion SR (12 HR) 150 mg Tablet PO (17:15)
[2022-01-07 20:36] LABS: Glucose Point of Care 144 mg/dL (70-110)
[2022-01-07] MEDS: budesonide 0.5 mg/2 mL Neb INHALATION (20:47)
[2022-01-08] VITALS (12 sets, daily range): BP systolic 148–179; BP diastolic 57–75; PULSE 78–93; RESP 16–18; TEMP 36.9–37.4; O2SAT 93–98
[2022-01-08] MEDS: ipratropium-albuterol 3 mL Neb INHALATION ×4 (03:19→20:57)
[2022-01-08] MEDS: azithromycin 500 MG in sodium chloride 0.9% 250 ML 250 MG IV (05:02)
[2022-01-08] MEDS: loratadine 10 mg Tablet PO (05:04)
[2022-01-08] MEDS: cholecalciferol (vitamin D3) 1,000 unit Tablet 1000 UNIT PO (05:04)
[2022-01-08] MEDS: docusate sodium 100 mg Capsule 200 MG PO (05:04)
[2022-01-08] MEDS: bumetanide 1 mg Tablet PO (05:04)
[2022-01-08] MEDS: enoxaparin 30 mg/0.3 mL Syringe SUBCUT (05:05)
[2022-01-08 06:08] LABS: Basophils % 0.2 %; Eosinophils # 0.1 10^3/uL (0.0-0.8); Eosinophils % 0.7 %; Hematocrit 35.1 % (42.0-52.0); Hemoglobin 11.4 g/dL (11.7-16.6); Lymphocytes # 1.2 10^3/uL (0.8-4.8); Lymphocytes % 12.1 %; Mean Corpuscular HGB Conc 32.5 g/dL (30.0-36.0); Mean Corpuscular Hemoglobin 29.8 pg (28.0-34.0); Mean Corpuscular Volume 91.9 fl (80-94); Mean Platelet Volume 11.3 fL (7.4-10.4); Monocytes # 0.7 10^3/uL (0.2-0.9); Monocytes % 6.8 %; Neutrophils # 7.88 10^3/uL (1.8-7.7); Neutrophils % 79.8 %; Nucleated Red Blood Cells % 0 %; Platelet Count 148 10^3/cmm (130-400); Red Blood Count 3.82 10^6/uL (4.1-5.3); Red Cell Distribution Width 14.3 % (12.1-15.1); White Blood Count 9.9 10^3/uL (4.0-10.0)
[2022-01-08 06:25] LABS: Blood Urea Nitrogen 13 mg/dL (8-23); Calcium 8.8 mg/dL (8.5-10.5); Carbon Dioxide 21 mmol/L (22-29); Chloride 102 mmol/L (98-107); Glucose 127 mg/dL (65-115); Osmolality Calculated 284 mOsm/kg (285-295); Sodium 136 mmol/L (136-145)
[2022-01-08 06:38] LABS: Glucose Point of Care 138 mg/dL (70-110)
[2022-01-08] MEDS: budesonide 0.5 mg/2 mL Neb INHALATION ×2 (08:04→20:57)
[2022-01-08] MEDS: cefTRIAXone 1,000 MG in sodium chloride 0.9% (plus) 50 ML 100 MG IV (08:05)
[2022-01-08] MEDS: metoprolol succinate ER (24 HR) 25 mg Tablet PO (08:18)
[2022-01-08] MEDS: levothyroxine 150 mcg Tablet PO (08:18)
[2022-01-08] MEDS: hyDRALAzine 50 mg Tablet PO (08:18)
[2022-01-08] MEDS: buPROPion SR (12 HR) 150 mg Tablet PO ×2 (08:18→18:22)
[2022-01-08] MEDS: sodium chloride 0.9% 1,000 ML 75 ML IV (08:19)
[2022-01-08 11:40] LABS: Glucose Point of Care 110 mg/dL (70-110)
--- NOTE | 2022-01-08 12:22 | USCV_ITS ---
Andriy Gonzales Age: 81 Gender: M : 1940 Exam Date: 01/08/2022 20:17 Ordering Phys: Gerardo Talbert MD Technologist: JAYNA Exam Location: [facility] [place] Indication: Uncontrolled Hypertension. Congestive Heart Failure BP: 155 / 65 HR: 84 Rhythm: Sinus Technical Quality: Adequate MEASUREMENTS (Male / Female) Normal Values 2D ECHO LV Diastolic Diameter PLAX 4.8 cm 4.2 - 5.9 / 3.9 - 5.3 cm LV Systolic Diameter PLAX 3.1 cm IVS Diastolic Thickness 1.4 cm 0.6 - 1.0 / 0.6 - 0.9 cm IVS Systolic Thickness 2.2 cm LVPW Diastolic Thickness 1.9 cm 0.6 - 1.0 / 0.6 - 0.9 cm LVPW Systolic Thickness 2.7 cm LVOT Diameter 2.1 cm LV Ejection Fraction 2D Teich 64.5 % LV Ejection Fraction MOD 2C 79.4 % LV Ejection Fraction 2C AL 78.3 % LA Diameter 3.5 cm LA Width 3.3 cm LA Height 5.6 cm RA Width 4.5 cm RA Height 5.8 cm Aorta at Sinotubular Diameter 3.0 cm IVC Diameter 2.3 cm M-MODE Aortic Annulus Diameter 2.6 cm LA Ao Ratio MM 1.5 MV E Point Septal Separation 0.5 cm DOPPLER AV Peak Velocity 158.0 cm/s LVOT Peak Velocity 83.0 cm/s AV Area Cont Eq vti 1.4 cm squared AV Area Cont Eq pk 1.9 cm squared MV Peak Velocity 95.0 cm/s MV Area PHT 2.2 cm squared Mitral E to A Ratio 0.8 MV E' Velocity 45.0 cm/s Mitral E to MV E' Ratio 6.9 Mitral E to LV E' Lateral Ratio 6.4 Mitral E to LV E' Septal Ratio 7.5 TR Peak Velocity 160.6 cm/s TR Peak Gradient 10.3 mmHg TR Mean Velocity 113.1 cm/s TR Mean Gradient 5.5 mmHg TR Velocity Time Integral 36.4 cm Right Atrial Pressure 10.0 mmHg Pulmonary Artery Systolic Pressu 20.3 mmHg RV Acceleration Time 0.1 s RV Ejection Time 0.3 s RV AcT/ET 0.6 FINDINGS Left Ventricle Normal left ventricular size. LV systolic function is normal with EF of 55-60%. No regional wall motion abnormalities. Grade 1 diastolic dysfunction Right Ventricle The right ventricle is normal in size and function. Right Atrium The right atrium is normal in size. Left Atrium The left atrium is normal in size. Mitral Valve Structurally normal mitral valve without significant stenosis or prolapse. There is no mitral regurgitation. Aortic Valve Grossly normal. No significant aortic stenosis. There is no aortic regurgitation. Tricuspid Valve Structurally normal tricuspid valve without significant stenosis. Mild tricuspid regurgitation. Pulmonary artery systolic pressure is normal. Pulmonic Valve Not well visualized Pericardium Normal pericardium without effusion. Aorta Normal ascending aorta dimension. IVC CONCLUSIONS LV systolic function is normal with EF of 55-60% Grade 1 diastolic dysfunction Mild tricuspid regurgitation No comparison studies are available Marco Soares MD (Electronically Signed) Final Date: 09 Jan 2022 17:02 S
--- NOTE | 2022-01-08 12:52 | CTR_ITS ---
PROCEDURE INFORMATION: Exam: CT Angiography Head Without And With Contrast, Arteriography Exam date and time: 01/08/2022 9:20 PM Age: 81 years old Clinical indication: Prior surgery; Surgery type: Thyroidectomy. Bilat shoulder; Patient HX: C/O occipital headache with neck pain. Hypertensive. History of prostate cancer with bone mets. ; Additional info: Rule out stroke TECHNIQUE: Imaging protocol: Computed tomographic angiography of the head without and with contrast. Exam focused on the arteries. 3D rendering (Not supervised by radiologist): MIP and/or 3D reconstructed images were created by the technologist. Radiation optimization: All CT scans at this facility use at least one of these dose optimization techniques: automated exposure control; mA and/or kV adjustment per patient size (includes targeted exams where dose is matched to clinical indication); or iterative reconstruction. Contrast material: OMNI 350; Contrast volume: 65 ml; Contrast route: INTRAVENOUS (IV); Other technique: STROKE PROTOCOL was implemented. COMPARISON: NM bone scan whole body* [id number] 09/19/2021 12:20 PM RADIATION DOSE METRICS: Total DLP (mGy-cm): 3320.75 FINDINGS: ANTERIOR CIRCULATION: Right internal carotid artery: There is moderate atherosclerotic disease in the cavernous portion of the right internal carotid artery without significant stenosis. Right middle cerebral artery: No occlusion or significant stenosis. No aneurysm. Right anterior cerebral artery: No occlusion or significant stenosis. No aneurysm. Left internal carotid artery: There is moderate atherosclerotic disease in the cavernous portion of the left internal carotid artery without significant stenosis. Left middle cerebral artery: No occlusion or significant stenosis. No aneurysm. Left anterior cerebral artery: No occlusion or significant stenosis. No aneurysm. POSTERIOR CIRCULATION: Right vertebral artery: No occlusion or significant stenosis. No aneurysm. Left vertebral artery: No occlusion or significant stenosis. No aneurysm. Basilar artery: No occlusion or significant stenosis. No aneurysm. Right posterior cerebral artery: No occlusion or significant stenosis. No aneurysm. Left posterior cerebral artery: No occlusion or significant stenosis. No aneurysm. Cavernous sinuses: Dural venous sinuses are patent. HEAD: Brain: There is mild diffuse cerebral atrophy. There is no significant mass effect or midline shift. There is no acute intracranial hemorrhage. Cerebral ventricles: There is mild ex vacuo dilation of the lateral ventricles. The basal cisterns are unremarkable. Bones/joints: The calvarium is intact. Paranasal sinuses: Mucosal thickening in the ethmoid and sphenoid sinuses. There is no fluid in the paranasal sinuses to suggest acute sinusitis. Mastoid air cells: The mastoid air cells are clear. Soft tissues: The visible extracranial soft tissues are unremarkable. PROCEDURE INFORMATION: Exam: CT Angiography Neck With Contrast Exam date and time: 01/08/2022 9:20 PM Age: 81 years old Clinical indication: Prior surgery; Surgery type: Thyroidectomy. Bilat shoulder; Patient HX: C/O occipital headache with neck pain. Hypertensive. History of prostate cancer with bone mets. ; Additional info: Rule out stroke TECHNIQUE: Imaging protocol: Computed tomography angiography of the neck with contrast. 3D rendering (Not supervised by radiologist): MIP and/or 3D reconstructed images were created by the technologist. Radiation optimization: All CT scans at this facility use at least one of these dose optimization techniques: automated exposure control; mA and/or kV adjustment per patient size (includes targeted exams where dose is matched to clinical indication); or iterative reconstruction. Contrast material: OMNI 350; Contrast volume: 65 ml; Contrast route: INTRAVENOUS (IV); COMPARISON: NM bone scan whole body* [id number] 09/19/2021 12:20 PM RADIATION DOSE METRICS: Total DLP (mGy-cm): 3320.75 FINDINGS: Right common carotid artery: No stenosis. No dissection or occlusion. Right internal carotid artery: There is mild atherosclerotic disease at the origin of the right internal carotid artery with less than 50% stenosis. Right external carotid artery: No occlusion or stenosis of the origin. Left common carotid artery: No stenosis. No dissection or occlusion. Left internal carotid artery: There is mild atherosclerotic disease at the origin of the left internal carotid artery with less than 50% stenosis. Left external carotid artery: No occlusion or stenosis of the origin. Right vertebral artery: No stenosis. No dissection or occlusion. Left vertebral artery: No stenosis. No dissection or occlusion. Soft tissues: Soft tissues in the neck and thoracic inlet are unremarkable. Bones/joints: There is mild degenerative disease in the cervical spine. Sclerotic osseous lesions are visible in the lower cervical and upper thoracic spine. Lungs: Lung apices are clear. CT/CT angio headneck* [id number] IMPRESSION: No arterial stenosis, occlusion or aneurysm. ASSESSMENT: ASPECTS ([place] Stroke Program Early CT Score) is 10. IMPRESSION: 1. No significant arterial stenosis. No dissection or occlusion. 2. Vertebral metastases. REFERENCES: NASCET CRITERIA. The degree of internal carotid artery stenosis is based on NASCET criteria. Normal is no stenosis. Mild is less than 50% stenosis. Moderate is 50-69% stenosis. Severe is 70% to 99% stenosis. Total occlusion is no detectable patent lumen.
[2022-01-08] MEDS: amlodipine 10 mg Tablet PO (15:07)
[2022-01-08 15:09] LABS: Influenza A by IFA Negative (Negative)
[2022-01-08 15:10] LABS: Influenza B by IFA Negative (Negative)
--- NOTE | 2022-01-08 15:23 | PM.PN ---
Subjective Subjective: No acute events overnight. Laying comfortably in bed on examination. Daughter at bedside. Denies any nausea, vomiting, headache. Patient states he came to the hospital because of generalized aches and pain more in his shoulder, lower belly. He states he has pain in bilateral occiput on and off without any aggravating or relieving factors for last 1 month. He thinks it is related to his ears. He is most concerned about of pain in his neck. Daughter states when he had this pain last time his doctor gave him antibiotic eardrops. Asking if it can be represcribed to him. Denies any shortness of breath. Currently on room air satting 94%. Blood pressures have been elevated. Vitals/I&O/Wt Last Vital Signs Temp 98.7 F 01/08/22 15:00 Pulse 84 01/08/22 15:00 Resp 16 01/08/22 15:00 BP 159/69 01/08/22 15:00 Pulse Ox 94 01/08/22 15:00 01/08/22 01/08/22 01/08/22 06:59 14:59 22:59 Intake Total 1120 / 3245 1080 / 1080 Output Total 1750 / 2600 900 / 900 Balance -630 / 645 180 / 180 Weight last 48 hrs Weight 112.808 kg Weight 107.048 kg Physical Exam Narrative: General: No acute distress, AO x3 HEENT: PERRLA, pupils bilaterally equal and reactive Chest: Normal vesicular breath sounds, occasional rhonchi and crackles present in left lower quadrant, equal good air entry bilaterally CVS: S1-S2 regular, no murmurs, no tachycardia, no gallops, no rubs Abdomen: Soft, nontender, no organomegaly, bowel sounds present Neuro: No focal deficits, no facial deformity, AO x3, power 5/5 in all limbs Data : 01/08/22 04:29 01/08/22 04:29 Micro: Microbiology 01/07/22 14:20 Sputum Culture - Preliminary Sputum - Expectorated Sputum 01/06/22 21:29 Blood Culture - Preliminary Blood NEGATIVE TO DATE 01/06/22 21:25 Blood Culture - Preliminary Blood NEGATIVE TO DATE A&P Assessment and plan (1) Shortness of breath: Status: Acute (2) Pain in neck: Status: Acute (3) Essential hypertension: Status: Acute (4) Diabetes mellitus: Status: Acute (5) Prostate cancer metastatic to bone: Status: Acute Plan Shortness of breath: Most likely secondary to COPD exacerbation. Less likely pulm pneumonia. CT chest imaging appreciated. Most likely resolving pneumonia in the left lower lobe quadrant. Patient Pro-Gary negative, afebrile, no leukocytosis. Continue with DuoNebs every 6 hour, budesonide twice daily. Follow-up blood culture, sputum culture. For now continue with IV ceftriaxone and azithromycin due to pneumonia is unlikely. Check flu swab, COVID-19 PCR. Cannot rule out congestive heart failure secondary to uncontrolled hypertension. Check echocardiogram. Strict input output charting, daily weights. Stop IV fluids. Continue with home dose of Bumex, hydrochlorothiazide. Uncontrolled hypertension: Goal blood pressure less than 140/90 mmHg. Continue with home dose of losartan 100 mg daily, metoprolol succinate 25 mg daily. Increase dose of hydralazine to 75 mg 3 times daily. Add amlodipine 10 mg daily. Pain in neck: Cannot rule out radiculopathy secondary to bony metastasis. Check CTA head and neck to rule out plaque, cervical stenosis. Type 2 diabetes mellitus: Continue with insulin sliding scale. Will discharge on home diabetic regimen. DNR/DNI. Cardiac carb consistent diet. Famotidine for PUD prophylaxis. Lovenox for DVT prophylaxis. Attestations Medical Necessity Statement*: Requires further hospitalization for management of uncontrolled hypertension, possible diastolic heart failure, shortness of breath Time Spent in Patient Care: Greater than 35 minutes Coding Level of Care Code Acute Hot Plate Press Operator for Adrien Ruvalcaba Diagnoses Shortness of breath R06.02 Pain in neck M54.2 Essential hypertension I10 Diabetes mellitus E11.9 Prostate cancer metastatic to bone C61; C79.51
[2022-01-08 16:07] LABS: Adenovirus Not Detected (NOT DETECT); Chlamydia Pneumoniae Not Detected (NOT DETECT); Coronavirus 229E,HKU1,NL63,OC4 Not Detected (NOT DETECT); Human Metapneumovirus Not Detected (NOT DETECT); Human Rhinovirus/Enterovirus Not Detected (NOT DETECT); Influenza A Not Detected (NOT DETECT); Influenza A H1 Not Detected (NOT DETECT); Influenza A H1-2009 Not Detected (NOT DETECT); Influenza A H3 Not Detected (NOT DETECT); Influenza B Not Detected (NOT DETECT); Mycoplasma Pneumoniae Not Detected (NOT DETECT); Parainfluenza Virus Type 1 Not Detected (NOT DETECT); Parainfluenza Virus Type 2 Not Detected (NOT DETECT); Parainfluenza Virus Type 3 Not Detected (NOT DETECT); Parainfluenza Virus Type 4 Not Detected (NOT DETECT); Respiratory Syncytial Virus A Not Detected (NOT DETECT); Respiratory Syncytial Virus B Not Detected (NOT DETECT); SARS-COV-2 Not Detected (NOT DETECT)
[2022-01-08 16:19] LABS: Iron 34 ug/dL (59-158)
[2022-01-08 17:10] LABS: Percent Saturation 13.7 % (20-50); Total Iron Binding Capacity 248 mcg/dl; Unsaturated Iron Binding 214 ug/dL (112-347)
[2022-01-08] MEDS: hyDRALAzine 25 mg Tablet 75 MG PO ×2 (17:13→21:40)
[2022-01-08 18:18] LABS: Glucose Point of Care 118 mg/dL (70-110)
[2022-01-08] MEDS: tamsulosin 0.4 mg Capsule 0.8 MG PO (18:21)
[2022-01-08] MEDS: doxycycline 100 mg Tablet PO (18:21)
[2022-01-08] MEDS: famotidine 20 mg Tablet PO (18:21)
[2022-01-08] MEDS: hydroCHLOROthiazide 25 mg Tablet PO (18:21)
[2022-01-08] MEDS: donepezil 5 MG Tablet 10 MG PO (18:22)
--- NOTE | 2022-01-08 18:27 | PC.NURSE ---
Notified Dr. Yan pt refused losartan due to bp at 158/57
[2022-01-08 20:30] LABS: Glucose Point of Care 126 mg/dL (70-110)
[2022-01-08] MEDS: iohexol 350 mg/mL 100 mL Btl IV (21:33)
[2022-01-08] MEDS: oxyCODONE 5 mg IR Tab/Cap 15 MG PO (21:40)
--- NOTE | 2022-01-08 21:51 | PC.NURSE ---
CT Has been down to CT this evening for test
[2022-01-09] VITALS (7 sets, daily range): BP systolic 122–149; BP diastolic 55–65; PULSE 76–89; RESP 15–18; TEMP 36.3–37.1; O2SAT 92–96
[2022-01-09] MEDS: ipratropium-albuterol 3 mL Neb INHALATION ×2 (03:10→08:22)
[2022-01-09] MEDS: oxyCODONE 5 mg IR Tab/Cap 15 MG PO (03:48)
[2022-01-09 04:24] LABS: Basophils % 0.3 %; Eosinophils # 0.1 10^3/uL (0.0-0.8); Eosinophils % 1.7 %; Hematocrit 32.9 % (42.0-52.0); Hemoglobin 10.7 g/dL (11.7-16.6); Lymphocytes # 1.7 10^3/uL (0.8-4.8); Lymphocytes % 21.5 %; Mean Corpuscular HGB Conc 32.5 g/dL (30.0-36.0); Mean Corpuscular Hemoglobin 29.4 pg (28.0-34.0); Mean Corpuscular Volume 90.4 fl (80-94); Mean Platelet Volume 10.5 fL (7.4-10.4); Monocytes # 0.6 10^3/uL (0.2-0.9); Monocytes % 7.8 %; Neutrophils # 5.38 10^3/uL (1.8-7.7); Neutrophils % 68.3 %; Nucleated Red Blood Cells % 0 %; Platelet Count 189 10^3/cmm (130-400); Red Blood Count 3.64 10^6/uL (4.1-5.3); Red Cell Distribution Width 14.3 % (12.1-15.1); White Blood Count 7.9 10^3/uL (4.0-10.0)
[2022-01-09 04:45] LABS: Alanine Aminotransferase 23 U/L (0-41); Albumin Level 3.7 g/dL (3.5-5.2); Alkaline Phosphatase 82 IU/L (40-130); Anion Gap 14.8 (5-19); Aspartate Amino Transferase 17 U/L (0-40); Blood Urea Nitrogen 18 mg/dL (8-23); Calcium 9.4 mg/dL (8.5-10.5); Carbon Dioxide 24 mmol/L (22-29); Chloride 103 mmol/L (98-107); Cholesterol 187 mg/dL (0-200); Glucose 124 mg/dL (65-115); HDL Cholesterol 48 mg/dL (60-100); LDL Cholesterol Calculated 115 mg/dL (50-129); Osmolality Calculated 289 mOsm/kg (285-295); Potassium 3.8 mmol/L (3.5-5.1); Sodium 138 mmol/L (136-145); Total Bilirubin 0.5 mg/dL (0.15-1.2); Total Protein 6.7 g/dL (6.6-8.7); Triglycerides 121 mg/dL (0-150); VLDL Cholestrol Calculation 24 mg/dL (0-30)
[2022-01-09 05:15] LABS: Estmated Average Glucose 126
[2022-01-09 06:05] LABS: Glucose Point of Care 120 mg/dL (70-110)
[2022-01-09] MEDS: loratadine 10 mg Tablet PO (06:11)
[2022-01-09] MEDS: cholecalciferol (vitamin D3) 1,000 unit Tablet 1000 UNIT PO (06:11)
[2022-01-09] MEDS: docusate sodium 100 mg Capsule 200 MG PO (06:11)
[2022-01-09] MEDS: bumetanide 1 mg Tablet PO (06:11)
--- NOTE | 2022-01-09 06:39 | PC.NURSE ---
SHIFT SUMMARY Has rested well tonight.Says he slept better tonight than he has since hes been in the hospital. Has remained afebrile. Had CT scan done last evening. Is hopig to go home today. Very pleasant and talkative. Has c/o generalized pain but says this is nothing new. Medicated X2 with po OXYIR. Wore CPAP while sleeping.
[2022-01-09] MEDS: budesonide 0.5 mg/2 mL Neb INHALATION (07:49)
[2022-01-09] MEDS: doxycycline 100 mg Tablet PO (08:51)
[2022-01-09] MEDS: amlodipine 10 mg Tablet PO (08:51)
[2022-01-09] MEDS: hyDRALAzine 25 mg Tablet 75 MG PO (08:51)
[2022-01-09] MEDS: famotidine 20 mg Tablet PO (08:51)
[2022-01-09] MEDS: buPROPion SR (12 HR) 150 mg Tablet PO (08:51)
[2022-01-09] MEDS: levothyroxine 150 mcg Tablet PO (08:51)
[2022-01-09] MEDS: metoprolol succinate ER (24 HR) 25 mg Tablet PO (08:51)
--- NOTE | 2022-01-09 10:07 | P.DS_ITS ---
Discharge Providers Date of Admission: 01/07/22 03:29 Date of Discharge: January 09, 2022 Attending Provider at Admission: Darshan Chowdhury DO Attending Provider at Discharge: Gerardo Talbert MD Diagnoses at Discharge Discharge Diagnosis (1) Shortness of breath: Status: Acute (2) Pain in neck: Status: Acute (3) Essential hypertension: Status: Acute (4) Diabetes mellitus: Status: Acute (5) Prostate cancer metastatic to bone: Status: Acute Reason for Visit Reason for Visit: PAIN Brief History: History as per HPI: 81-year-old male who presented with chief complaint of diffuse pain.? The patient has metastatic prostate cancer.? During my encounter with the patient, although he was able to answer questions, his 2 family members who I believe are his daughters constantly spoke over him and appeared to have exaggerated his symptoms.? They claim that the patient had a temperature of 102.1? at home and was saturating less than 89% at home.? The patient is to cough which is nonproductive.? He denies nausea, vomiting, wheeze, abdominal pain, diarrhea, myalgia.? The patient's family members asked a plethora of questions during the encounter, and interfered with my ability to obtain information directly with the patient.? During my physical exam with the patient, to miss characterized my palpation of his neck as rough .? Similar sentiments were expressed to me regarding the assertiveness of the patient's family members by the emergency department physician.? Because I am unable to verify the truthfulness of the information that is being provided to me, and due to the patient's immunocompromise state, he will be hospitalized as a precaution. Hospital Course Hospital Course Patient was admitted under observation because of above complaint. On admission there was concern for slight pneumonia so was started on antibiotics for community-acquired pneumonia. During hospitalization he was found to have uncontrolled hypertension because of which his antihypertensives were adjusted. Family insisted for blood pressures to be more than 120 as as per them patient would have recurrent episodes of syncope if blood pressures are lower than that. Patient and family were counseled in detail regarding the same. Patient is still increase her dose of hydralazine to 75 mg 3 times a day. He is advised to maintain his blood pressure from systolic of 120 to 140 mmHg. He is advised to skip the medicine if blood pressures are less than 120 systolics. He is advised to maintain a blood pressure diary and follow-up with his primary care provider for the next 2 weeks for further adjustment of antihypertensives. For diffuse pain viral pathology was ruled out with a negative COVID-19 and in fluenza PCR. It is believed his diffuse pain is secondary to multiple bony metastasis secondary to his prostate cancer. During hospitalization patient also received a call from his outpatient dermatology office and he was diagnosed of new melanoma. Family was concerned for possible tick bite as they found multiple ticks on him within last 1 week. His LFTs were found to be within normal limits with platelets at baseline. He is been discharged on course of doxycycline for 3 days. His hospitalization otherwise remain unremarkable. Patient continues to remain ambulatory, on room air and afebrile. He is advised to follow-up with his outpatient molecular pathologist and oncologist within next 1 week to 10 days. Discharge plan was discussed in detail with the patient and his family and they both verbalized understanding. Physical Exam Narrative: General: No acute distress, AO x3 HEENT: PERRLA, pupils bilaterally equal and reactive Chest: Normal vesicular breath sounds, occasional rhonchi and crackles present in left lower quadrant, equal good air entry bilaterally CVS: S1-S2 regular, no murmurs, no tachycardia, no gallops, no rubs Abdomen: Soft, nontender, no organomegaly, bowel sounds present Neuro: No focal deficits, no facial deformity, AO x3, power 5/5 in all limbs Discharge Data Studies Completed and Pending Completed Studies During Hospitalization Category Date Time Status CT chest abdomen pelvis [CT chest abd pel wo con] Cat Scan 01/06/22 22:52 Completed Urgent CTA head neck [CT angio headneck* [id number]] Routine Cat Scan 01/08/22 12:52 Completed XR chest 1V portable [id number] Urgent Exams 01/06/22 21:04 Completed Pending at discharge Category Date Time Status Blood Culture Stat Lab 01/06/22 21:29 Results Sputum Culture Routine Lab 01/07/22 14:20 Results CV. echo complete* [id number] Routine Ultrasound 01/08/22 12:22 Taken Radiology Impressions Chest X-Ray 01/06/22 21:04 IMPRESSION: 1. No acute cardiopulmonary process. 2. Sclerosis with enlargement of the anterolateral left 5th rib. This corresponds to an area of increased radiotracer uptake on prior bone scan and could represent a metastatic focus. Recommend clinical correlation. 3. Incidental/nonacute findings are listed in the report. Chest/Abdomen/Pelvis CT 01/06/22 22:52 IMPRESSION: 1. Left lower lobe bronchopneumonia suspected. 2. Osseous metastatic disease. IMPRESSION: 1. Negative for acute abdominopelvic pathology. 2. Osseous metastatic disease. Head/Neck CTA 01/08/22 12:52 IMPRESSION: No arterial stenosis, occlusion or aneurysm. ASSESSMENT: ASPECTS ([place] Stroke Program Early CT Score) is 10. IMPRESSION: 1. No significant arterial stenosis. No dissection or occlusion. 2. Vertebral metastases. REFERENCES: NASCET CRITERIA. The degree of internal carotid artery stenosis is based on NASCET criteria. Normal is no stenosis. Mild is less than 50% stenosis. Moderate is 50-69% stenosis. Severe is 70% to 99% stenosis. Total occlusion is no detectable patent lumen. ADDENDUM: 01/08/22 [id number] THIS REPORT CONTAINS FINDINGS THAT MAY BE CRITICAL TO PATIENT CARE. The findings were verbally communicated via telephone conference with Dr. Chowdhury at 9:54 PM CDT on 01/08/2022. The findings were acknowledged and understood. Laboratory Results WBC 7.9 10^3/uL (4.0-10.0) 01/09/22 03:38 RBC 3.64 10^6/uL (4.1-5.3) L 01/09/22 03:38 Hgb 10.7 g/dL (11.7-16.6) L 01/09/22 03:38 Hct 32.9 % (42.0-52.0) L 01/09/22 03:38 MCV 90.4 fl (80-94) 01/09/22 03:38 MCH 29.4 pg (28.0-34.0) 01/09/22 03:38 MCHC 32.5 g/dL (30.0-36.0) 01/09/22 03:38 RDW 14.3 % (12.1-15.1) 01/09/22 03:38 Plt Count 189 10^3/cmm (130-400) 01/09/22 03:38 MPV 10.5 fL (7.4-10.4) H 01/09/22 03:38 Neut % (Auto) 68.3 % 01/09/22 03:38 Lymph % (Auto) 21.5 % 01/09/22 03:38 [place] % (Auto) 7.8 % 01/09/22 03:38 Eos % (Auto) 1.7 % 01/09/22 03:38 Baso % (Auto) 0.3 % 01/09/22 03:38 Neut # (Auto) 5.38 10^3/uL (1.8-7.7) 01/09/22 03:38 Lymph # (Auto) 1.7 10^3/uL (0.8-4.8) 01/09/22 03:38 [place] # (Auto) 0.6 10^3/uL (0.2-0.9) 01/09/22 03:38 Eos # (Auto) 0.1 10^3/uL (0.0-0.8) 01/09/22 03:38 Baso # (Auto) 0.0 10^3/uL (0.0-0.1) 01/09/22 03:38 Nucleated RBC % (auto) 0 % 01/09/22 03:38 Nucleated RBCs # 0.0 /100WBC 01/09/22 03:38 Sodium 138 mmol/L (136-145) 01/09/22 03:38 Potassium 3.8 mmol/L (3.5-5.1) 01/09/22 03:38 Chloride 103 mmol/L (98-107) 01/09/22 03:38 Carbon Dioxide 24 mmol/L (22-29) 01/09/22 03:38 Anion Gap 14.8 (5-19) 01/09/22 03:38 BUN 18 mg/dL (8-23) 01/09/22 03:38 Creatinine 1.1 mg/dL (0.7-1.2) 01/09/22 03:38 GFR Calculation Not Reportable 01/09/22 03:38 Glucose 124 mg/dL (65-115) H 01/09/22 03:38 POC Glucose 120 mg/dL (70-110) H 01/09/22 06:00 Estimat Average Glucose 126 01/09/22 03:38 Hemoglobin A1c 6.0 % (4.0-6.0) 01/09/22 03:38 Calculated Osmolality 289 mOsm/kg (285-295) 01/09/22 03:38 Lactate 1.8 mmol/L (0.5-2.2) 01/06/22 21:25 Calcium 9.4 mg/dL (8.5-10.5) 01/09/22 03:38 Iron 34 ug/dL (59-158) L 01/08/22 04:29 TIBC 248 mcg/dl 01/08/22 04:29 % Saturation 13.7 % (20-50) L 01/08/22 04:29 Unsat Iron Binding 214 ug/dL (112-347) 01/08/22 04:29 Total Bilirubin 0.5 mg/dL (0.15-1.2) 01/09/22 03:38 AST 17 U/L (0-40) 01/09/22 03:38 ALT 23 U/L (0-41) 01/09/22 03:38 Alkaline Phosphatase 82 IU/L (40-130) 01/09/22 03:38 Troponin T Baseline 16 ng/L (0-15) H 01/06/22 20:50 Troponin T 120 Minute 19.52 ng/L (0-15) H 01/06/22 23:05 Delta Troponin T 3.52 ABS# (0-10) 01/06/22 23:05 Troponin T Hi Sens 6Hr 20.67 ng/L (0-15) H 01/07/22 02:36 Troponin T Hi Sens 6Hr Delta 4.67 ng/L (0-12) 01/07/22 02:36 C-Reactive Protein 11.3 mg/L (0.0-4.9) H 01/06/22 20:50 Total Protein 6.7 g/dL (6.6-8.7) 01/09/22 03:38 Albumin 3.7 g/dL (3.5-5.2) 01/09/22 03:38 Globulin 3.0 g/dL (1.3-4.6) 01/09/22 03:38 Triglycerides 121 mg/dL (0-150) 01/09/22 03:38 Cholesterol 187 mg/dL (0-200) 01/09/22 03:38 LDL Cholesterol, Calc 115 mg/dL (50-129) 01/09/22 03:38 Total VLDL Cholesterol 24 mg/dL (0-30) 01/09/22 03:38 HDL Cholesterol 48 mg/dL (60-100) L 01/09/22 03:38 Cholesterol/HDL Ratio 3.90 mg/dL (1.0-5.00) 01/09/22 03:38 Procalcitonin 0.09 ng/mL (0-0.5) 01/07/22 02:36 TSH 2.20 uIU/mL (0.27-4.20) 01/06/22 20:50 Urine Color Yellow (Yellow) 01/06/22 23:23 Urine Appearance Clear (CLEAR) 01/06/22 23: Urine pH 5 (5-7) 01/06/22 23:23 Ur Specific [place] 1.015 (1.005-1.030) 01/06/22 23:23 Urine Protein Trace (Negative) 01/06/22 23:23 Urine Glucose (UA) Norm (Normal) 01/06/22 23:23 Urine Ketones Negative (Negative) 01/06/22 23:23 Urine Blood Neg (Negative) 01/06/22 23:23 Urine Nitrate Negative (Negative) 01/06/22 23: Urine Bilirubin Neg (Negative) 01/06/22 23: Prot Sulfosalicylic Acd Negative (Negative) 01/06/22 23:23 Urine Urobilinogen Norm mg/dL (Negative) 01/06/22 23:23 Ur Leukocyte Esterase Negative (Negative) 01/06/22 23:23 Urine RBC 0-4 /hpf (0-2) H 01/06/22 23:23 Urine WBC 0-4 /hpf (0-5) H 01/06/22 23:23 Ur Squamous Epith Cells 0-4 /hpf (0-5) H 01/06/22 23:23 Amorphous Sediment Not Reportable 01/06/22 23: Urine Bacteria Trace /hpf (NONE) 01/06/22 23:23 Urine Mucus 1+ /hpf 01/06/22 23:23 Coronavirus 229E (PCR) Not detected (NOT DETECT) 01/08/22 13:30 Influenza Type A Ag Negative (Negative) 01/08/22 13:30 Influenza Type B Ag Negative (Negative) 01/08/22 13:30 SARS-CoV-2 (PCR) Not detected (NOT DETECT) 01/08/22 13:30 Vitals Last Vital Signs Temp 97.3 F L 01/09/22 07:27 Pulse 76 01/09/22 07:47 Resp 16 01/09/22 07:47 BP 149/65 01/09/22 07:27 Pulse Ox 96 01/09/22 07:47 Discharge Plan Discharge Patient Disposition: Home Condition: Stable Prescriptions: New doxycycline monohydrate 100 mg Tablet 100 mg PO BID 3 Days Qty: 6 0RF Continued Xtandi 40 mg Tablet 160 mg PO DAILY Qty: 112 0RF Adalat CC 30 mg Tablet Extended Release 30 mg PO BID 0RF Advair Diskus 500-50 mcg/dose Blister With Device 1 inh INHALATION BID 0RF bupropion HCl 150 mg Tablet Sustained-Release 12 Hr 150 mg PO BID 0RF Colace 50 mg Capsule 200 mg PO QAM 0RF colestipol 1 gram Tablet 2 g PO BID 0RF bumetanide 1 mg Tablet 1 mg PO QAM 0RF Fish Oil 1,000 mg (120 mg-180 mg) Capsule 2 cap PO BID 0RF tiotropium bromide 18 mcg Capsule, W/Inhalation Device 1 cap INHALATION DAILY 0RF Rx Instructions: puncture 1 cap using device; one dose = 2 inhalations hydrochlorothiazide 25 mg Tablet 25 mg PO QPM 0RF donepezil 10 mg Tablet 10 mg PO QPM 0RF enzalutamide 40 mg Tablet 160 mg PO DAILY@0200 0RF loratadine 10 mg Tablet 10 mg PO QAM 0RF losartan 100 mg Tablet 100 mg PO QPM 0RF metformin 500 mg Tablet 500 mg PO BID 0RF metoprolol succinate 25 mg Tablet Extended Release 24 Hr 25 mg PO DAILY 0RF multivitamin Tablet 1 tab PO QAM 0RF Synthroid 150 mcg Tablet 150 mcg PO DAILY 0RF tamsulosin 0.4 mg Capsule 0.8 mg PO QPM 0RF Glucosamine Chondroitin 550-30-1 mg Capsule 1 cap PO DAILY 0RF Lupron Depot (3 month) 11.25 mg Syringe Kit See Rx Instructions .ROUTE .COMPLEX 0RF Rx Instructions: every 3 months denosumab 60 mg/mL Syringe See Rx Instructions .ROUTE .COMPLEX 0RF Rx Instructions: subcutaneously once a month albuterol sulfate 2.5 mg /3 mL (0.083 %) Solution For Nebulization 2.5 mg INHALATION QID PRN (Reason: Shortness Of Breath Or Wheezing) 0RF nitroglycerin 0.4 mg Tablet, Sublingual 0.4 mg SUBLINGUAL Q5M PRN (Reason: chest pain) 0RF Rx Instructions: do not exceed 3 doses per episode hydrocodone-acetaminophen 5-325 mg tablet 1 tab PO BID PRN (Reason: Pain) 0RF oxycodone 15 mg tablet 15 mg PO QID PRN (Reason: Pain) 0RF Vitamin D3 25 mcg (1,000 unit) Capsule 25 mcg PO QAM 0RF Systane Complete 0.6 % Drops 1 drp ophthalmic (eye) QID 0RF Changed hydralazine 50 mg Tablet 75 mg PO TID Qty: 0 0RF Discontinued cefuroxime axetil [Ceftin] 500 mg Tablet 500 mg PO DAILY PRN (Reason: unknown) 0RF Discharge Orders: Discharge Order (Routine); Ordered 01/09/22 Ordered By: Gerardo Talbert Referrals: Harley Avalos MD [Physician] - 1 week (Bilateral ear pain) Discharge Diet: Regular Discharge Activity: Resume usual activity and Increase activity as tolerated Patient Instructions: Opioid Safety Activity Restrictions/Additional Instructions: Please continue to take Eliquis home home. Return if blood pressures less than 140 systolic. Your blood pressure medications have been adjusted. Dose of hydralazine has been increased to 75 mg 3 times a day. Please do not skip any medication. You can skip medication if your blood pressure is lower than 120 systolic. Please maintain a blood pressure diary and follow-up with your primary care provider within the next 1 week to 10 days for further adjustment of antihypertensives as needed. Please follow-up with your ENT physician within next 1 week for evaluation of bilateral ear pain. Please follow-up with your outpatient molecular pathologist and oncologist. Discharge Attestations Time Spent in Discharge Care*: greater than 30 min Specific Discharge Activities: educating patient, educating and/or supporting family/caregiver, discussing with family independence case manager/social workers/dc planners, documenting/other paperwork and evaluating patient/reviewing data Status at Discharge: Cognitive status at discharge: cognitively intact , Beh avioral status at discharge: cooperative , Functional status at discharge: independent ambulation , Overall status at discharge: patient is back to baseline Quality Metrics Clinical Quality Measures [ No reported AMI, CVA or VTE this stay] Coding Level of Care Code Acute Chg FW DC note Diagnoses Shortness of breath R06.02 Pain in neck M54.2 Essential hypertension I10 Diabetes mellitus E11.9 Prostate cancer metastatic to bone C61; C79.51
[2022-01-09 11:20] LABS: Glucose Point of Care 152 mg/dL (70-110)
== END 2022-01-09 12:13 | disposition home or self-care (01) | DRG 190 ==
LOC: ER 01-07 02:58 → MEDSURG 01-07 04:24
PROVIDERS: Internal Medicine; Admitting Provider Internal Medicine; Emergency Provider Emergency Medicine; Visit Provider Student in an Organized Health Care Education/Training Program
DX: J44.1 Chronic obstructive pulmonary disease with (acute) exacerbation (principal); I50.31 Acute diastolic (congestive) heart failure; C79.51 Secondary malignant neoplasm of bone; D84.9 Immunodeficiency, unspecified; I11.0 Hypertensive heart disease with heart failure; J44.0 Chronic obstructive pulmonary disease with (acute) lower respiratory infection; C61 Malignant neoplasm of prostate; E11.9 Type 2 diabetes mellitus without complications; N40.0 Benign prostatic hyperplasia without lower urinary tract symptoms; K21.9 Gastro-esophageal reflux disease without esophagitis; E89.0 Postprocedural hypothyroidism; Z87.891 Personal history of nicotine dependence; Z79.899 Other long term (current) drug therapy; G89.3 Neoplasm related pain (acute) (chronic); K59.00 Constipation, unspecified; G62.9 Polyneuropathy, unspecified; F32.A Depression, unspecified; Z79.891 Long term (current) use of opiate analgesic; Z79.818 Long term (current) use of other agents affecting estrogen receptors and estrogen levels; Z79.51 Long term (current) use of inhaled steroids; Z79.84 Long term (current) use of oral hypoglycemic drugs; C43.9 Malignant melanoma of skin, unspecified; Z66 Do not resuscitate; E66.9 Obesity, unspecified; Z68.34 Body mass index [BMI] 34.0-34.9, adult; E78.5 Hyperlipidemia, unspecified; I25.2 Old myocardial infarction; I25.10 Atherosclerotic heart disease of native coronary artery without angina pectoris
CPT/HCPCS: 36415; 36416; 70496; 70498; 71045; 71250; 74176; 80048; 80053; 80061; 81001; 82962; 83036; 83540; 83550; 83605; 84145; 84443; 84484; 85025; 86140; 87040; 87070; 87635; 87804; 93005; 93306; 94640; 96365; 96372; 96375; 96376; 99285; J0456; J0692; J0696; J1170; J1650; J7030; J7050; J7626; Q9967

== ENCOUNTER → 2022-01-15 14:46 | Outpatient (BNVA) | payer MEDICARE, SELFPAY | PROVIDERS: Visit Provider Otolaryngology | DX: M26.629 Arthralgia of temporomandibular joint, unspecified side (principal); C61 Malignant neoplasm of prostate; C79.51 Secondary malignant neoplasm of bone; H92.03 Otalgia, bilateral | CPT/HCPCS: 99203; 99204 ==

== ENCOUNTER 2022-01-16 12:36 | Oncology outpatient (recurring) (ONCR) | payer OTHER, MEDICARE, SELFPAY ==
[2022-01-16] MEDS: denosumab 120 mg SDV SUBCUT (16:00)
[2022-01-16] MEDS: leuprolide 22.5 mg Kit IM (16:03)
[2022-01-16 16:15] VITALS: BP 147/58; PULSE 63; RESP 18; TEMP 36.2; O2SAT 96
== END 2022-01-21 23:59 | disposition home or self-care (01) ==
PROVIDERS: Visit Provider Nurse Practitioner
DX: Z51.11 Encounter for antineoplastic chemotherapy (principal); C61 Malignant neoplasm of prostate; C79.51 Secondary malignant neoplasm of bone; Z79.899 Other long term (current) drug therapy; Z79.818 Long term (current) use of other agents affecting estrogen receptors and estrogen levels
CPT/HCPCS: 36415; 80053; 84153; 85025; 96372; 96402; 99215; J0897; J9217

== ENCOUNTER → 2022-01-22 13:39 | Outpatient (BNVA) | payer OTHER, SELFPAY | PROVIDERS: Referring Provider Internal Medicine Medical Oncology; Visit Provider Specialist | DX: C61 Malignant neoplasm of prostate (principal); C79.51 Secondary malignant neoplasm of bone; M25.552 Pain in left hip | CPT/HCPCS: 73502; 99204; 99205 ==

== ENCOUNTER 2022-01-28 06:00 | Outpatient (RCR) | payer OTHER, SELFPAY | END 2022-02-20 23:59 | disposition home or self-care (01) | LOC: WPT 06:00 | PROVIDERS: Referring Provider Specialist; Visit Provider Specialist | DX: S46.89 Other injury of other muscles, fascia and tendons at shoulder and upper arm level (principal); X58.XXXD Exposure to other specified factors, subsequent encounter | CPT/HCPCS: 97110; 97161 ==

== ENCOUNTER 2022-02-13 13:02 | Oncology outpatient (recurring) (ONCR) | payer OTHER, SELFPAY ==
[2022-02-13 13:30] LABS: Basophils # 0.1 10^3/uL (0.0-0.1); Basophils % 0.9 %; Eosinophils # 0.4 10^3/uL (0.0-0.8); Eosinophils % 6.7 %; Hematocrit 34.1 % (42.0-52.0); Hemoglobin 11.5 g/dL (11.7-16.6); Lymphocytes # 1.4 10^3/uL (0.8-4.8); Lymphocytes % 26.4 %; Mean Corpuscular HGB Conc 33.7 g/dL (30.0-36.0); Mean Corpuscular Hemoglobin 29.9 pg (28.0-34.0); Mean Corpuscular Volume 88.8 fl (80-94); Mean Platelet Volume 9.7 fL (7.4-10.4); Monocytes # 0.3 10^3/uL (0.2-0.9); Monocytes % 6.3 %; Neutrophils % 59.5 %; Nucleated Red Blood Cells % 0 %; Platelet Count 203 10^3/cmm (130-400); Red Blood Count 3.84 10^6/uL (4.1-5.3); Red Cell Distribution Width 13.8 % (12.1-15.1); White Blood Count 5.4 10^3/uL (4.0-10.0)
[2022-02-13 14:13] LABS: Alanine Aminotransferase 35 U/L (0-41); Albumin Level 4.2 g/dL (3.5-5.2); Alkaline Phosphatase 70 IU/L (40-130); Blood Urea Nitrogen 19 mg/dL (8-23); Calcium 10.5 mg/dL (8.5-10.5); Carbon Dioxide 24 mmol/L (22-29); Chloride 103 mmol/L (98-107); Globulin 2.6 g/dL (1.3-4.6); Glucose 149 mg/dL (65-115); Osmolality Calculated 291 mOsm/kg (285-295); Prostate Specific Antigen 0.498 ng/mL (0-4); Sodium 138 mmol/L (136-145); Testosterone Total 4.9 ng/dL (193-740); Total Bilirubin 0.3 mg/dL (0.15-1.2); Total Protein 6.8 g/dL (6.6-8.7)
[2022-02-13 14:14] LABS: Anion Gap 15.4 (5-19); Aspartate Amino Transferase 25 U/L (0-40); Potassium 4.4 mmol/L (3.5-5.1)
[2022-02-13 14:24] VITALS: BP 158/71; PULSE 75; RESP 18; TEMP 36.2; O2SAT 93
[2022-02-13] MEDS: denosumab 120 mg SDV SUBCUT (14:25)
== END 2022-02-20 23:59 | disposition home or self-care (01) ==
PROVIDERS: Visit Provider Nurse Practitioner
DX: Z51.11 Encounter for antineoplastic chemotherapy; C61 Malignant neoplasm of prostate; C79.51 Secondary malignant neoplasm of bone
CPT/HCPCS: 80053; 84153; 84403; 85025; 96372; J0897

== ENCOUNTER 2022-02-21 06:00 | Outpatient (RCR) | payer OTHER, SELFPAY | END 2022-03-23 23:59 | disposition home or self-care (01) | LOC: WPT 06:00 | PROVIDERS: Referring Provider Specialist; Visit Provider Specialist | DX: S46.89 Other injury of other muscles, fascia and tendons at shoulder and upper arm level (principal); X58.XXXD Exposure to other specified factors, subsequent encounter | CPT/HCPCS: 97110; 97116; 97530 ==

== ENCOUNTER 2022-03-20 08:00 | Oncology outpatient (recurring) (ONCR) | payer OTHER, SELFPAY ==
[2022-03-13] MEDS: denosumab 120 mg SDV SUBCUT (14:22)
[2022-03-13 14:26] LABS: Basophils % 0.5 %; Eosinophils # 0.3 10^3/uL (0.0-0.8); Eosinophils % 4.5 %; Hematocrit 35.4 % (42.0-52.0); Hemoglobin 11.5 g/dL (11.7-16.6); Lymphocytes # 1.4 10^3/uL (0.8-4.8); Lymphocytes % 24.7 %; Mean Corpuscular HGB Conc 32.5 g/dL (30.0-36.0); Mean Corpuscular Hemoglobin 30.1 pg (28.0-34.0); Mean Corpuscular Volume 92.7 fl (80-94); Mean Platelet Volume 9.6 fL (7.4-10.4); Monocytes # 0.4 10^3/uL (0.2-0.9); Monocytes % 7.6 %; Neutrophils # 3.44 10^3/uL (1.8-7.7); Neutrophils % 62.2 %; Nucleated Red Blood Cells % 0 %; Platelet Count 205 10^3/cmm (130-400); Red Blood Count 3.82 10^6/uL (4.1-5.3); Red Cell Distribution Width 14.1 % (12.1-15.1); White Blood Count 5.5 10^3/uL (4.0-10.0)
[2022-03-13 14:42] LABS: Alanine Aminotransferase 36 U/L (0-41); Albumin Level 4.2 g/dL (3.5-5.2); Alkaline Phosphatase 71 IU/L (40-130); Aspartate Amino Transferase 24 U/L (0-40); Blood Urea Nitrogen 16 mg/dL (8-23); Calcium 10.6 mg/dL (8.5-10.5); Carbon Dioxide 27 mmol/L (22-29); Chloride 102 mmol/L (98-107); Globulin 2.1 g/dL (1.3-4.6); Glucose 137 mg/dL (65-115); Osmolality Calculated 291 mOsm/kg (285-295); Prostate Specific Antigen 0.391 ng/mL (0-4); Sodium 139 mmol/L (136-145); Testosterone Total 9.4 ng/dL (193-740); Total Bilirubin 0.3 mg/dL (0.15-1.2); Total Protein 6.3 g/dL (6.6-8.7)
--- NOTE | 2022-03-20 07:47 | NM_ITS ---
WS: [id number] NUCLEAR MEDICINE WHOLE BODY BONE SCAN HISTORY: RE EVALUATION/MALIGNANT NEOPLASM OF PROSTATE METASTATIC TO BONE COMPARISON: 09/19/2021 TECHNIQUE: The patient was injected with 23.5 mCi of Technetium 99m HDP and serial whole-body scintig dennis have been performed with anterior and posterior images. Significant improvement overall in the metastatic bone lesions as compared to the prior study from . Decrease in the overall uptake or complete resolution of the abnormal uptake at multiple lev els as compared to the prior study. There is continued marked improvement with decreased uptake in th e anterior LEFT ribs near the seventh and eighth level. Marked overall improvement in uptake througho ut the spine and in the pelvis. There is very minimal increased uptake along the SI joints and involv ing the posterior LEFT 8 and 10 ribs medially. Moderate increased focal uptake involving the proximal RIGHT humerus. No interval advancement of disease. Soft tissue uptake is normal in the kidneys. Mild degenerative changes in the ankles and mid tarsal r egion. NM/NM bone scan whole body* [id number] IMPRESSION: 1. Marked overall improvement of bony metastasis as compared to August 2021. 2. There are no new metastatic lesions identified.
== END 2022-03-23 23:59 | disposition home or self-care (01) ==
LOC: ONCMED 11:12 → RAD 03-21 00:01 → ONCMED 03-22 07:33
PROVIDERS: Visit Provider Nurse Practitioner
DX: Z53.9 Procedure and treatment not carried out, unspecified reason (principal); C61 Malignant neoplasm of prostate; C79.51 Secondary malignant neoplasm of bone
CPT/HCPCS: 78306; 80053; 84153; 84403; 85025; 96372; A9561; J0897

== ENCOUNTER 2022-04-17 12:36 | Oncology outpatient (recurring) (ONCR) | payer OTHER, SELFPAY ==
[2022-04-17] MEDS: denosumab 120 mg SDV SUBCUT (15:31)
[2022-04-17] MEDS: leuprolide 22.5 mg Kit IM (15:31)
== END 2022-04-23 23:59 | disposition home or self-care (01) ==
PROVIDERS: PCP Nurse Practitioner; Visit Provider Nurse Practitioner
DX: Z51.11 Encounter for antineoplastic chemotherapy (principal); C61 Malignant neoplasm of prostate; C79.51 Secondary malignant neoplasm of bone; Z79.818 Long term (current) use of other agents affecting estrogen receptors and estrogen levels; R53.83 Other fatigue; R03.1 Nonspecific low blood-pressure reading
CPT/HCPCS: 36415; 80053; 82306; 84153; 84403; 85025; 96372; 96402; 99215; J0897; J9217

== ENCOUNTER 2022-05-06 15:44 | Emergency (ER) | payer OTHER, SELFPAY ==
[2022-05-06 15:46] VITALS: BP 195/76; PULSE 66; RESP 18; TEMP 36.5; O2SAT 96; BMI 33.5
--- NOTE | 2022-05-06 18:59 | ED_ITS ---
HPI - General Adult General: Chief complaint: Abdominal Pain Stated complaint: chest pain/cancer pt Time Seen by Provider: 05/06/22 18:49 History of Present Illness: Patient is an 82-year-old male with history of metastatic prostate cancer currently on oral chemotherapy followed by Dr. Rocha presented to the emergency room with complaints of left lower chest and left upper quadrant abdominal pain. Patient is me that he recently had a CT scan which showed that he had metastatic bone lesions in his left lower ribs in his back. Patient tells me that since yesterday afternoon, he has had intermittent sharp pain in his left lower chest and right upper chest. He is not worse with p.o. intake. Patient says the pain is not worse with inspiration. The pain is worse with movement. Patient denies any fever/chills, cough, runny nose sore throat, diarrhea melena/hematochezia. Has not had any fall or injuries recently. Onset: yesterday Duration:ongoing Location:home Severity:moderate Associated symptoms: Reports chest pain (+Left lower chest pain); Deny dyspnea, nausea, rash, palpitations or vomiting Review of Systems Const: Denies: fever(s) or chills Eyes: Denies: change in vision ENMT: Denies: mouth pain Card: Reports: chest pain (+Left lower chest pain); Denies: palpitations Resp: Denies: dyspnea or non-productive cough GI: Reports: abdominal pain (+LUQ abdominal pain); Denies: nausea, vomiting or diarrhea : Denies: dysuria Musc: Denies: extremity pain Skin/Breast: Denies: rash or new lesions Neuro: Denies: weakness in extremities Psych: Reports: other (Normal mood) Efrain/Lymph: Denies: easy bruising PFS ED PFSH: Medical History (Updated 05/06/22 @ 23:13 by Lucie Wade MD) Cognitive dysfunction COPD (chronic obstructive pulmonary disease) Degenerative arthritis Degenerative joint disease of spine Essential hypertension GERD (gastroesophageal reflux disease) Hyperlipidemia Hypothyroidism Obstructive sleep apnea Peripheral neuropathy Posttraumatic stress disorder Prostate cancer metastatic to bone Type 2 diabetes mellitus Vitamin D deficiency Surgical History (Updated 04/20/22 @ 11:13 by Beni Rocha MD) History of melanoma excision Melanoma in situ S/P angioplasty S/P cholecystectomy S/P partial thyroidectomy Patient has 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 S/P rotator cuff repair bilateral Family History Brother Heart disease Other CAD (coronary artery disease) Cancer Dementia Diabetes Hyperlipidemia Hypertension Lung disease Stroke Denies family history of Clotting disorder Psychiatric illness Chronic kidney disease (CKD) Suicide Anesthesia complication Bleeding disorder Social History Smoking and tobacco status: former smoker (smoked x 20 years) Quit status (tobacco): has quit using tobacco Alcohol intake: never Physical Exam Const: COMMON NORMALS: alert HENMT: COMMON NORMALS: atraumatic HEAD & SCALP: atraumatic MOUTH: moist mucous membranes not abnormal Eye: COMMON NORMALS: EOMs intact bilaterally and conjunctivae normal CONJUNCTIVA: Yes conjunctivae normal Neck/C-Spine: COMMON NORMALS: full ROM and supple Resp: COMMON NORMALS: normal respiratory effort and clear to auscultation bilaterally AUSCULTATION: clear to auscultation bilaterally Cardio: COMMON NORMALS: regular rate RATE: regular rate GI: COMMON NORMALS: Soft to palpation and non-tender PALPATION: Yes Soft to palpation Extremity: COMMON NORMALS: full ROM Neuro: SENSORIUM/ORIENTATION: Yes alert MOTOR EXAM: No Abnormal motor stren gth present and Other motor observations present (no focal motor deficits) Psych: COMMON NORMALS: speech normal SPEECH: Yes normal speech MOOD & AFFECT: Yes euthymic mood Course Vital Signs: Vital signs: Vital Signs Temperature 97.7 F 05/06/22 15:46 Pulse Rate 63 05/06/22 19:22 Respiratory Rate 18 05/06/22 19:45 Blood Pressure 179/73 05/06/22 19:22 Pulse Oximetry 97 05/06/22 19:22 Oxygen Delivery Me thod 05/06/22 19:22 MDM - General Adult Medical Decision Making Patient is an 82-year-old male with history of metastatic prostate cancer currently on oral chemotherapy followed by Dr. Rocha presented to the emergency room with complaints of left lower chest and left upper quadrant abdominal pain. On exam, patient has. Bony tenderness palpation in the left lower ribs. Patient has no guarding rebound tenderness. Exam within normal limit. Lab work-up showed white count 5.3. Patient not neutropenic. X-ray not showing signs pathological fractures of the ribs. EKG is nonischemic. Troponin is wnl. Dimer wnl. Family is requesting for additional pain medicine. Patient will be given a prescription for Dilaudid until patient seen by Dr. Rocha next week. Do not suspect ACS, pneumonia, acute intra-abdominal pathology at this time. Rx dilaudid PRN pain Disposition: Discharge. Patient counseled regarding diagnostic impression, treatment plan. Patient given ED strict return precautions to return for continuation, worsening, or development of new symptoms. Instructed to f/u w/ Dr. Rocha regarding symptoms today. Patient verbalized understanding. Lab Data : 05/06/22 19:45 05/06/22 22:05 Radiology Impressions Ribs X-Ray 05/06/22 19:11 IMPRESSION: 1. Metastatic lesions to left ribs not significantly changed 2. No acute fracture is identified. Laboratory Results WBC 5.3 10^3/uL (4.0-10.0) 05/06/22 19:45 RBC 3.96 10^6/uL (4.1-5.3) L 05/06/22 19:45 Hgb 12.3 g/dL (11.7-16.6) 05/06/22 19:45 Hct 36.5 % (42.0-52.0) L 05/06/22 19:45 MCV 92.2 fl (80-94) 05/06/22 19:45 MCH 31.1 pg (28.0-34.0) 05/06/22 19:45 MCHC 33.7 g/dL (30.0-36.0) 05/06/22 19:45 RDW 13.4 % (12.1-15.1) 05/06/22 19:45 Plt Count 217 10^3/cmm (130-400) 05/06/22 19:45 MPV 10.5 fL (7.4-10.4) H 05/06/22 19:45 Neut % (Auto) 64.5 % 05/06/22 19:45 Lymph % (Auto) 21.9 % 05/06/22 19:45 [place] % (Auto) 6.3 % 05/06/22 19:45 Eos % (Auto) 6.3 % 05/06/22 19:45 Baso % (Auto) 0.6 % 05/06/22 19:45 Neut # (Auto) 3.39 10^3/uL (1.8-7.7) 05/06/22 19:45 Lymph # (Auto) 1.2 10^3/uL (0.8-4.8) 05/06/22 19:45 [place] # (Auto) 0.3 10^3/uL (0.2-0.9) 05/06/22 19:45 Eos # (Auto) 0.3 10^3/uL (0.0-0.8) 05/06/22 19:45 Baso # (Auto) 0.0 10^3/uL (0.0-0.1) 05/06/22 19:45 Nucleated RBC % (auto) 0 % 05/06/22 19:45 Nucleated RBCs # 0.0 /100WBC 05/06/22 19:45 D-Dimer 0.45 ug/mIFEU (0-0.59) 05/06/22 22:05 Sodium 138 mmol/L (136-145) 05/06/22 22:05 Potassium 3.9 mmol/L (3.5-5.1) 05/06/22 22:05 Chloride 104 mmol/L (98-107) 05/06/22 22:05 Carbon Dioxide 23 mmol/L (22-29) 05/06/22 22:05 Anion Gap 14.9 (5-19) 05/06/22 22:05 BUN 15 mg/dL (8-23) 05/06/22 22:05 Creatinine 1.1 mg/dL (0.7-1.2) 05/06/22 22:05 GFR Calculation Not Reportable 05/06/22 22:05 Glucose 117 mg/dL (65-115) H 05/06/22 22:05 Calculated Osmolality 288 mOsm/kg (285-295) 05/06/22 22:05 Calcium 10.4 mg/dL (8.5-10.5) 05/06/22 22:05 Total Bilirubin 0.2 mg/dL (0.15-1.2) 05/06/22 22:05 AST 24 U/L (0-40) 05/06/22 22:05 ALT 40 U/L (0-41) 05/06/22 22:05 Alkaline Phosphatase 70 U/L (40-130) 05/06/22 22:05 Troponin T Gen 5 ng/L 14 ng/L (0-15) 05/06/22 22:05 Total Protein 6.3 g/dL (6.6-8.7) L 05/06/22 22:05 Albumin 4.0 g/dL (3.5-5.2) 05/06/22 22:05 Globulin 2.3 g/dL (1.3-4.6) 05/06/22 22:05 Lipase 32 U/L (13-60) 05/06/22 22:05 Urine Color Yellow (Yellow) 05/06/22 15:53 Urine Appearance Clear (CLEAR) 05/06/22 15:53 Urine pH 5 (5-7) 05/06/22 15:53 Ur Specific Odin 1.020 (1.005-1.030) 05/06/22 15:53 Urine Protein Neg (Negative) 05/06/22 15:53 Urine Glucose (UA) Norm (Normal) 05/06/22 15:53 Urine Ketones Negative (Negative) 05/06/22 15:53 Urine Blood Neg (Negative) 05/06/22 15:53 Urine Nitrate Negative (Negative) 05/06/22 15:53 Urine Bilirubin Neg (Negative) 05/06/22 15:53 Urine Urobilinogen Neg mg/dL (Negative) 05/06/22 15:53 Ur Leukocyte Esterase Negative (Negative) 05/06/22 15:53 Imaging Data Other Imaging: Radiologist's impression: [address] [address] XRay Report Signed Patient: Andriy Gonzales Unit #: [id number] : 1940 Age/Sex: 82 / M ADM Date: 05/06/22 Loc: ER Room/Bed: Attending Dr: Ordering Provider/Ordering MD: Lucie Wade MD Date of Service: 05/06/22 Procedure(s): XR ribs LT mn 3V w CXR1V [id number] Accession Number(s): [id number] Report Number: [id number] PROCEDURE INFORMATION: Exam: XR Left Ribs with PA Chest Exam date and time: 05/06/2022 7:15 PM Age: 82 years old Clinical indication: Condition or disease; Other: Metastatic prostate cancer. Possible pathological FX? ; Patient HX: HX of metastatic prostate cancer, diabetes; Additional info: Rib pain on lower left anterior/axillary ribs TECHNIQUE: Imaging protocol: Radiologic exam of the Left ribs with PA chest. Views: 3 views COMPARISON: CT chest abd pel wo con 01/06/2022 11:53 PM FINDINGS: Lungs: Unremarkable. No consolidation. Pleural spaces: Unremarkable. No pleural effusion. No pneumothorax. Heart/Mediastinum: Unremarkable. No cardiomegaly. Bones/joints: There is sclerosis and mild expansion of the anterior right 5th rib consistent with known sclerotic bone metastasis from prostate cancer not significantly changed compared with 01/06/2022. There is irregular sclerotic expansile lesion in the anterior end of the left 7th rib not significantly changed compared with 01/06/2022 and consistent with the patient's known bone metastasis. No displaced rib fracture is identified. XR/XR ribs LT mn 3V w CXR1V [id number] IMPRESSION: 1. Metastatic lesions to left ribs not significantly changed 2. No acute fracture is identified. ? Dictated By: Moy Dewitt Signed By: Moy Dewitt Signed Date/Time: 05/06/222010 DD/ 14 Discharge Plan Discharge Patient Disposition: Home Clinical Impression: Chest pain Condition: Stable Prescriptions: New Dilaudid 2 mg tablet 2 mg PO Q6H PRN (Reason: pain) 3 Days Qty: 12 0RF No Action tiotropium bromide 18 mcg capsule, w/inhalation device 1 cap INHALATION DAILY Qty: 60 0RF Rx Instructions: puncture 1 cap using device; one dose = 2 inhalations metoprolol succinate 25 mg tablet extended release 24 hr 25 mg PO DAILY Qty: 90 3RF oxycodone 15 mg tablet 15 mg PO BEDTIME PRN (Reason: Pain) 30 Days Qty: 30 0RF nifedipine [Adalat CC] 30 mg Tablet Extended Release 30 mg PO BID fluticasone propion-salmeterol [Advair Diskus] 500-50 mcg/dose Blister With Device 1 inh INHALATION BID bupropion HCl 150 mg Tablet Sustained-Release 12 Hr 150 mg PO BID docusate sodium 50 mg Capsule 200 mg PO BID colestipol 1 gram Tablet 2 g PO BID omega 4-dbn-har-fish oil [Fish Oil] 1,000 mg (120 mg-180 mg) Capsule 2 cap PO BID donepezil 10 mg Tablet 10 mg PO QPM loratadine 10 mg Tablet 10 mg PO QAM losartan 100 mg Tablet 100 mg PO QPM metformin 500 mg Tablet 500 mg PO BID multivitamin Tablet 1 tab PO QAM levothyroxine [Synthroid] 150 mcg Tablet 150 mcg PO DAILY tamsulosin 0.4 mg Capsule 0.8 mg PO QAM Glucosamine Chondroitin 550-30-1 mg Capsule 1 cap PO DAILY Lupron Depot (3 month) 11.25 mg Syringe Kit See Rx Instructions .ROUTE .COMPLEX Rx Instructions: every 3 months denosumab 60 mg/mL Syringe See Rx Instructions .ROUTE .COMPLEX Rx Instructions: subcutaneously once a month albuterol sulfate 2.5 mg /3 mL (0.083 %) Solution For Nebulization 2.5 mg INHALATION QID PRN (Reason: Shortness Of Breath Or Wheezing) nitroglycerin 0.4 mg Tablet, Sublingual 0.4 mg SUBLINGUAL Q5M PRN (Reason: chest pain) Rx Instructions: do not exceed 3 doses per episode cholecalciferol (vitamin D3) [Vitamin D3] 25 mcg (1,000 unit) Capsule 25 mcg PO QAM hydrochlorothiazide 25 mg tablet 12.5 mg PO DAILY hydralazine 50 mg tablet 50 mg PO BID SSD 1 % cream 1 applic TOPICAL DAILY lidocaine 5 % adhesive patch,medicated 1 patch topical Q12H PRN (Reason: Pain) hydrocodone-acetaminophen 10-325 mg tablet 1 tab PO Q4H Xtandi 40 mg tablet 40 mg PO DAILY Discharge Orders: Discharge ED (Routine); Ordered 05/06/22 Ordered By: Lucie Wade Referrals: Melissa Ramirez, [facility] [Primary Care Provider] - Discharge Diet: Advance as tolerated Discharge Activity: Increase activity as tolerated Patient Instructions: Opioid Safety, Pain Management Activity Restrictions/Additional Instructions: Come back if you have any new or concerning issues. 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
--- NOTE | 2022-05-06 19:11 | XRR_ITS ---
PROCEDURE INFORMATION: Exam: XR Left Ribs with PA Chest Exam date and time: 05/06/2022 7:15 PM Age: 82 years old Clinical indication: Condition or disease; Other: Metastatic prostate cancer. Possible pathological FX? ; Patient HX: HX of metastatic prostate cancer, diabetes; Additional info: Rib pain on lower left anterior/axillary ribs TECHNIQUE: Imaging protocol: Radiologic exam of the Left ribs with PA chest. Views: 3 views COMPARISON: CT chest abd pel wo con 01/06/2022 11:53 PM FINDINGS: Lungs: Unremarkable. No consolidation. Pleural spaces: Unremarkable. No pleural effusion. No pneumothorax. Heart/Mediastinum: Unremarkable. No cardiomegaly. Bones/joints: There is sclerosis and mild expansion of the anterior right 5th rib consistent with known sclerotic bone metastasis from prostate cancer not significantly changed compared with 01/06/2022. There is irregular sclerotic expansile lesion in the anterior end of the left 7th rib not significantly changed compared with 01/06/2022 and consistent with the patient's known bone metastasis. No displaced rib fracture is identified. XR/XR ribs LT mn 3V w CXR1V [id number] IMPRESSION: 1. Metastatic lesions to left ribs not significantly changed 2. No acute fracture is identified.
--- NOTE | 2022-05-06 19:21 | PC.NURSE ---
PT TO RADIOLOGY
[2022-05-06 19:22] VITALS: BP 179/73; PULSE 63; RESP 18; O2SAT 97
[2022-05-06 19:45] VITALS: RESP 18
[2022-05-06] MEDS: sodium chloride 0.9% 1,000 ML 999 ML IV (19:45)
[2022-05-06] MEDS: morphine 4 mg/mL SDV 1 mL IVP (19:45)
[2022-05-06 20:03] LABS: Basophils % 0.6 %; Eosinophils # 0.3 10^3/uL (0.0-0.8); Eosinophils % 6.3 %; Hematocrit 36.5 % (42.0-52.0); Hemoglobin 12.3 g/dL (11.7-16.6); Lymphocytes # 1.2 10^3/uL (0.8-4.8); Lymphocytes % 21.9 %; Mean Corpuscular HGB Conc 33.7 g/dL (30.0-36.0); Mean Corpuscular Hemoglobin 31.1 pg (28.0-34.0); Mean Corpuscular Volume 92.2 fl (80-94); Mean Platelet Volume 10.5 fL (7.4-10.4); Monocytes # 0.3 10^3/uL (0.2-0.9); Monocytes % 6.3 %; Neutrophils # 3.39 10^3/uL (1.8-7.7); Neutrophils % 64.5 %; Nucleated Red Blood Cells % 0 %; Platelet Count 217 10^3/cmm (130-400); Red Blood Count 3.96 10^6/uL (4.1-5.3); Red Cell Distribution Width 13.4 % (12.1-15.1); White Blood Count 5.3 10^3/uL (4.0-10.0)
[2022-05-06 20:13] LABS: Add Urine Microscopic? NO; Charge for UA Resulting for Rev
[2022-05-06 20:17] LABS: Urine Appearance Clear (CLEAR); Urine Color Yellow (Yellow)
[2022-05-06 20:19] LABS: Bilirubin Urine Neg (Negative); Blood Urine Neg (Negative); Glucose Urine UA Norm (Normal); Ketones Urine Negative (Negative); Leukocyte Esterase Urine Negative (Negative); Nitrate Urine Negative (Negative); Protein Urine Neg (Negative); Urobilinogen Urine Neg (Negative); pH Urine 5 (5-7)
--- NOTE | 2022-05-06 22:07 | XRR_ITS ---
PROCEDURE INFORMATION: Exam: XR Chest Exam date and time: 05/06/2022 10:26 PM Age: 82 years old Clinical indication: Chest pressure; Patient HX: C/O chest pain. History of metastatic prostate cancer. TECHNIQUE: Imaging protocol: Radiologic exam of the chest. Views: 1 view. COMPARISON: 1. CR (CHEST, ) 05/06/2022 7:15 PM 2. CR XR chest 1V portable [id number] 01/06/2022 9:39 PM FINDINGS: Lungs: Visualized portions of the lungs are clear. Pleural spaces: Unremarkable. No pleural effusion. No pneumothorax. Heart/Mediastinum: Heart is upper limits normal in size. Bones/joints: Expansile sclerotic lesion anterior left 5th rib consistent with bone metastasis again identified. Left 7th rib lesion not well seen on this study. XR/XR chest 1V portable [id number] IMPRESSION: 1. No acute infiltrate. 2. No change in bone metastasis.
[2022-05-06 22:24] LABS: D Dimer 0.45 ug/mIFEU (0-0.59)
[2022-05-06 22:28] LABS: Alanine Aminotransferase 40 U/L (0-41); Alkaline Phosphatase 70 U/L (40-130); Anion Gap 14.9 (5-19); Aspartate Amino Transferase 24 U/L (0-40); Blood Urea Nitrogen 15 mg/dL (8-23); Calcium 10.4 mg/dL (8.5-10.5); Carbon Dioxide 23 mmol/L (22-29); Chloride 104 mmol/L (98-107); Globulin 2.3 g/dL (1.3-4.6); Glucose 117 mg/dL (65-115); Lipase 32 U/L (13-60); Osmolality Calculated 288 mOsm/kg (285-295); Potassium 3.9 mmol/L (3.5-5.1); Sodium 138 mmol/L (136-145); Total Bilirubin 0.2 mg/dL (0.15-1.2); Total Protein 6.3 g/dL (6.6-8.7)
--- NOTE | 2022-05-06 22:38 | ECG_ITS ---
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 Measurements Intervals [place]am Rate: 61 P: 52 RI: 254 QRS: -5 QRSD: 167 T: -8 QT: 437 QTc: 441 Interpretive Statements SINUS RHYTHM WITH FIRST DEGREE AV BLOCK RIGHT BUNDLE BRANCH BLOCK [120+ ms QRS DURATION, UPRIGHT V1, 40+ ms S IN I/aVL/V4/V5/V6] Compared to ECG 01/06/2022 21:19:34 First degree AV block now present Electronically Signed On 05-08-2022 10:37:07 CDT by Marco Soares M.D. [email or web address]
[2022-05-06 23:12] LABS: Troponin T (5th) Once 14 ng/L (0-15)
[2022-05-06 23:53] VITALS: BP 193/84; PULSE 65; RESP 18; O2SAT 97
== END 2022-05-06 23:57 | disposition home or self-care (01) ==
PROVIDERS: Family Medicine; Emergency Provider Emergency Medicine; PCP Nurse Practitioner
DX: R07.9 Chest pain, unspecified (principal); Z79.84 Long term (current) use of oral hypoglycemic drugs; Z87.891 Personal history of nicotine dependence; J44.9 Chronic obstructive pulmonary disease, unspecified; I10 Essential (primary) hypertension; E78.5 Hyperlipidemia, unspecified; Z85.46 Personal history of malignant neoplasm of prostate; Z85.830 Personal history of malignant neoplasm of bone; E11.9 Type 2 diabetes mellitus without complications
CPT/HCPCS: 36415; 71045; 71101; 80053; 81003; 83690; 84484; 85025; 85378; 93005; 96361; 96374; 99285; J2270; J7030

== ENCOUNTER 2022-05-16 10:29 | Oncology outpatient (recurring) (ONCR) | payer OTHER, SELFPAY ==
--- NOTE | 2022-05-08 | CT_ITS ---
Radiation Therapy Planning CT images; total exam DLP: 835.00 mGy-cm MTDD
--- NOTE | 2022-05-08 15:08 | N.ONRAD NP_ITS ---
Radiation Oncology Consultation Patient Name: Andriy Gonzales Date of : 1940 Date of Service: 05/08/2022 Attending Physician: Claude Paul M.D. Andriy Kwan was seen in consultation this afternoon at the request of Beni Rocha M.D. for consideration of palliative radiotherapy for the management of metastatic prostate cancer. He was initially evaluated in June 2021 with an elevated PSA level (143.2 ng/mL). A TRUS biopsy of the prostate diagnosed an adenocarcinoma Shawn score of 4+4. A nuclear bone scintigraphy ordered in August 2021 reported notable foci of increased radiotracer activity within the thoracolumbar spine, ribs, pelvis, and right intertrochanteric femur. An abdominopelvic CT scan obtained in September 2021 described a prominent prostate gland with and effacement of the urinary bladder floor no lymphadenopathy. Total androgen suppression was prescribed with transitioning to enzalutamide. A repeat bone scan completed on March 20, 2022 identified marked overall improvement of the bony metastases. A recent radiograph of the left ribs (independently reviewed in [facility]) requested on account of worsening left-sided rib pain revealed a sclerotic, expansile lesion of the anterior aspect of the left seventh rib and sclerosis with mild expansion of the anterior right fifth rib. He was referred for palliative radiotherapy. I discussed with Mr. Gonzales the role for palliative radiation in the context of the left rib lesion. I would recommend a 1-week course of radiation therapy in consideration of the patient's performance status. A CT scan will be acquired for radiotherapy planning prior to beginning treatment to delineate the clinical target volume. The potential toxicities of radiotherapy were reviewed. The patient has verbalized understanding would like to proceed as recommended. His medical treatment plan has been discussed with Beni Rocha M.D. Signed by: Dr. Claude Paul 05/08/2022 3:07:04 PM
--- NOTE | 2022-05-13 13:23 | ONCRAD TMN_ITS ---
Radiation Oncology Treatment Management Note Patient Name: Andriy Gonzales Date of : 1940 Date of Service: 05/13/2022 Attending Physician: Claude Paul M.D. Andriy Gonzales is an 82 year-old white male diagnosed metastatic prostate cancer. He was initially evaluated in June 2021 with an elevated PSA level (143.2 ng/mL). A TRUS biopsy of the prostate diagnosed an adenocarcinoma [place] score of 4+4. A nuclear bone scintigraphy ordered in August 2021 reported notable foci of increased radiotracer activity within the thoracolumbar spine, ribs, pelvis, and right intertrochanteric femur. An abdominopelvic CT scan obtained in September 2021 described a prominent prostate gland with and effacement of the urinary bladder floor no lymphadenopathy. Total androgen suppression was prescribed with transitioning to enzalutamide. A repeat bone scan completed on March 20, 2022 identified marked overall improvement of the bony metastases. A recent radiograph of the left ribs requested on account of worsening left-sided rib pain revealed a sclerotic, expansile lesion of the anterior aspect of the left seventh rib and sclerosis with mild expansion of the anterior right fifth rib. The patient has received 8 Gy of a prescribed 20 Carrasco to the right seventh rib lesion with a 3-dimensional conformal radiotherapy plan utilizing tangential treatment galvan. Upon review of systems, his pain is controlled with dilaudid 2 mg every 6 hours as needed. On physical examination, the patient weighed 254 lbs. His temperature was 97.7 ???F and the blood pressure was 142/66 mmHg. His pulse was 64 bpm and his respiratory rate was 18. There was no erythema within the treatment galvan. Continue palliative radiotherapy as prescribed. Signed by: Dr. Claude Paul 05/13/2022 1:21:17 PM
[2022-05-15] MEDS: denosumab 120 mg SDV SUBCUT (13:28)
--- NOTE | 2022-05-16 10:54 | N.ONRD TS_ITS ---
Radiation OncologyTreatment Summary Patient Name: Andriy Gonzales Date of : 1940 Date of Service: 05/16/2022 Attending Physician: Claude Paul M.D. Andriy Gonzales has completed palliative radiotherapy for the management of diagnosed metastatic prostate cancer. He was initially evaluated in June 2021 with an elevated PSA level (143.2 ng/mL). A TRUS biopsy of the prostate diagnosed an adenocarcinoma [place] score of 4+4. A nuclear bone scintigraphy ordered in August 2021 reported notable foci of increased radiotracer activity within the thoracolumbar spine, ribs, pelvis, and right intertrochanteric femur. An abdominopelvic CT scan obtained in September 2021 described a prominent prostate gland with and effacement of the urinary bladder floor no lymphadenopathy. Total androgen suppression was prescribed with transitioning to enzalutamide. A repeat bone scan completed on March 20, 2022 identified marked overall improvement of the bony metastases. A recent radiograph of the left ribs (independently reviewed in [facility]) requested on account of worsening left-sided rib pain revealed a sclerotic, expansile lesion of the anterior aspect of the left seventh rib and sclerosis with mild expansion of the anterior right fifth rib. Daily radiotherapy was administered between the dates of May 12, 2022 through May 16, 2022. A prescribed dose of 20 Gy was delivered in 5 fractions encompassing 5 elapsed days. The right seventh rib was treated utilizing a 3-dimensional conformal radiotherapy plan with an opposed tangential portal field design. The ERICKSON field utilized a 310??? gantry angle with a collimator angle of 55???. The field size measured 4 cm x 4 cm within the X-direction and 8 cm x 8 cm within the Y-direction. The SSD measured 93.1 cm with the field delivering 244 monitor units. The LPO port employed a gantry angle of 135??? and a collimator angle of 125???. The field size was 4 cm x 4 cm within X-direction and 8 cm x 8 cm within the Y-direction. The measured SSD was 83.8 cm with the field allocating 221 monitor units. All treatments were performed with the Freedom2 linear accelerator and an isocentric technique. The dose was calculated by Anisotropic Analytic Algorithm. Photon energies of 15 MV were prescribed with the plan normalized to deliver 100% of the prescription dose to 100% of the planning target volume. Signed by: Dr. Claude Paul 05/16/2022 10:53:10 AM
== END 2022-05-23 23:59 | disposition home or self-care (01) ==
PROVIDERS: PCP Nurse Practitioner; Visit Provider Radiology Radiation Oncology
DX: Z51.11 Encounter for antineoplastic chemotherapy (principal); C61 Malignant neoplasm of prostate; C79.51 Secondary malignant neoplasm of bone
CPT/HCPCS: 77290; 77295; 77300; 77334; 77336; 77387; 77412; 96372; 99205; J0897

== ENCOUNTER → 2022-05-22 13:26 | Outpatient (BNVA) | payer OTHER, SELFPAY | PROVIDERS: PCP Nurse Practitioner; Visit Provider Internal Medicine Pulmonary Disease | DX: J43.9 Emphysema, unspecified (principal); C61 Malignant neoplasm of prostate; C79.51 Secondary malignant neoplasm of bone; Z87.891 Personal history of nicotine dependence; R93.89 Abnormal findings on diagnostic imaging of other specified body structures; G47.33 Obstructive sleep apnea (adult) (pediatric) | CPT/HCPCS: 99214 ==

== ENCOUNTER → 2022-06-04 13:48 | Outpatient (BNVA) | payer OTHER, SELFPAY | PROVIDERS: PCP Nurse Practitioner; Visit Provider Internal Medicine Cardiovascular Disease | DX: I10 Essential (primary) hypertension (principal); E78.5 Hyperlipidemia, unspecified; J44.9 Chronic obstructive pulmonary disease, unspecified; C79.51 Secondary malignant neoplasm of bone; G47.33 Obstructive sleep apnea (adult) (pediatric); Z87.891 Personal history of nicotine dependence | CPT/HCPCS: 99214 ==

== ENCOUNTER 2022-06-12 12:47 | Oncology outpatient (recurring) (ONCR) | payer OTHER, SELFPAY ==
[2022-06-12] MEDS: denosumab 120 mg SDV SUBCUT (13:51)
== END 2022-06-23 23:59 | disposition home or self-care (01) ==
PROVIDERS: PCP Nurse Practitioner; Visit Provider Radiology Radiation Oncology
DX: Z51.11 Encounter for antineoplastic chemotherapy (principal); C61 Malignant neoplasm of prostate; C79.51 Secondary malignant neoplasm of bone
CPT/HCPCS: 96372; J0897

== ENCOUNTER 2022-07-02 09:50 | Outpatient (CLI) | payer OTHER, SELFPAY | END 2022-07-02 09:51 | disposition home or self-care (01) | LOC: RT 09:51 | PROVIDERS: PCP Nurse Practitioner; Visit Provider Internal Medicine Pulmonary Disease | DX: J44.9 Chronic obstructive pulmonary disease, unspecified (principal) | CPT/HCPCS: 94060; 94618; 94726; 94729; J7611; J7613 ==

== ENCOUNTER 2022-07-09 11:47 | Oncology outpatient (recurring) (ONCR) | payer OTHER, SELFPAY ==
[2022-07-09 12:20] LABS: Basophils % 0.5 %; Eosinophils # 0.3 10^3/uL (0.0-0.8); Eosinophils % 5.4 %; Hematocrit 35.3 % (42.0-52.0); Hemoglobin 11.8 g/dL (11.7-16.6); Lymphocytes # 1.1 10^3/uL (0.8-4.8); Lymphocytes % 19.2 %; Mean Corpuscular HGB Conc 33.4 g/dL (30.0-36.0); Mean Corpuscular Hemoglobin 30.8 pg (28.0-34.0); Mean Corpuscular Volume 92.2 fl (80-94); Mean Platelet Volume 9.3 fL (7.4-10.4); Monocytes # 0.4 10^3/uL (0.2-0.9); Neutrophils # 3.87 10^3/uL (1.8-7.7); Neutrophils % 67.6 %; Nucleated Red Blood Cells % 0 %; Platelet Count 211 10^3/cmm (130-400); Red Blood Count 3.83 10^6/uL (4.1-5.3); Red Cell Distribution Width 13.2 % (12.1-15.1); White Blood Count 5.7 10^3/uL (4.0-10.0)
[2022-07-09 12:53] LABS: Alanine Aminotransferase 52 U/L (0-41); Albumin Level 4.2 g/dL (3.5-5.2); Alkaline Phosphatase 70 U/L (40-130); Anion Gap 16.4 (5-19); Aspartate Amino Transferase 33 U/L (0-40); Blood Urea Nitrogen 13 mg/dL (8-23); Calcium 10.4 mg/dL (8.5-10.5); Carbon Dioxide 25 mmol/L (22-29); Chloride 103 mmol/L (98-107); Globulin 2.4 g/dL (1.3-4.6); Glucose 129 mg/dL (65-115); Osmolality Calculated 292 mOsm/kg (285-295); Potassium 4.4 mmol/L (3.5-5.1); Prostate Specific Antigen 0.216 ng/mL (0-4); Sodium 140 mmol/L (136-145); Testosterone Total 5.7 ng/dL (193-740); Total Bilirubin 0.3 mg/dL (0.15-1.2); Total Protein 6.6 g/dL (6.6-8.7)
[2022-07-09] MEDS: denosumab 120 mg SDV SUBCUT (14:26)
[2022-07-09] MEDS: leuprolide 22.5 mg Kit IM (14:30)
== END 2022-07-23 23:59 | disposition home or self-care (01) ==
PROVIDERS: PCP Nurse Practitioner; Visit Provider Internal Medicine Medical Oncology
DX: C61 Malignant neoplasm of prostate; C79.51 Secondary malignant neoplasm of bone; I10 Essential (primary) hypertension; R53.0 Neoplastic (malignant) related fatigue; M54.50 Low back pain, unspecified; R13.10 Dysphagia, unspecified; Z79.818 Long term (current) use of other agents affecting estrogen receptors and estrogen levels; Z79.899 Other long term (current) drug therapy; Z87.891 Personal history of nicotine dependence
CPT/HCPCS: 36415; 80053; 84153; 84403; 85025; 96372; 96402; 99214; J0897; J9217

== ENCOUNTER 2022-08-06 13:49 | Oncology outpatient (recurring) (ONCR) | payer OTHER, SELFPAY ==
[2022-08-06] MEDS: denosumab 120 mg SDV SUBCUT (14:26)
== END 2022-08-23 23:59 | disposition home or self-care (01) ==
PROVIDERS: PCP Nurse Practitioner; Visit Provider Internal Medicine Medical Oncology
DX: C61 Malignant neoplasm of prostate (principal); C79.51 Secondary malignant neoplasm of bone; Z79.818 Long term (current) use of other agents affecting estrogen receptors and estrogen levels; Z79.899 Other long term (current) drug therapy
CPT/HCPCS: 96372; J0897

== ENCOUNTER 2022-09-03 13:46 | Oncology outpatient (recurring) (ONCR) | payer OTHER, SELFPAY ==
[2022-09-03] MEDS: denosumab 120 mg SDV SUBCUT (14:33)
[2022-09-03 14:35] VITALS: BP 146/61; PULSE 72; RESP 18; TEMP 36.1; O2SAT 95
== END 2022-09-23 23:59 | disposition home or self-care (01) ==
LOC: ONCMED 13:46
PROVIDERS: PCP Nurse Practitioner; Visit Provider Internal Medicine Medical Oncology
DX: C61 Malignant neoplasm of prostate (principal); C79.51 Secondary malignant neoplasm of bone
CPT/HCPCS: 96372; J0897

== ENCOUNTER 2022-09-08 16:24 | Emergency (ER) | payer OTHER, SELFPAY ==
[2022-09-08 16:34] VITALS: BP 154/71; PULSE 66; RESP 18; TEMP 36.3; O2SAT 97
--- NOTE | 2022-09-08 17:10 | ED_ITS ---
HPI - Ear Problem General: Chief complaint: Ear Stated complaint: Pain in ear to throat Time Seen by Provider: 09/08/22 17:05 History of Present Illness: Patient is an 82-year-old male who comes to the ED with left ear pain. Symptoms started approximately 5 days ago. He describes th e pain in his left ear as episodic and very sharp and intense pain in the left ear that radiates into the left jaw. Pain is not constant and the episodes of pain occur at random intervals. He states that sometimes he will have a sharp pains that hit every couple minutes or just a couple times an hour. Patient said he has had this pain once before and they told him it was TMJ. He was seen by walk-in clinic 3 days ago and diagnosed with otitis media and left ear and has been taking amoxicillin. He also reports having a sore throat as well. 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 Patient has Dilaudid at home that he takes for his cancer pain. Associated symptoms: Reports ear or mastoid pain (Left ear); Denies fever(s), headache(s) or neck pain Review of Systems Const: Denies: fever(s), chills or fatigue Eyes: Denies: change in vision or eye discomfort ENMT: Reports: ear or mastoid pain (Left ear); Denies: throat pain, odynophagia, nasal discharge or nasal congestion Card: Denies: chest pain, palpitations, edema, swelling of feet/ankles, dyspnea on exertion or orthopnea Resp: Denies: dyspnea, productive cough or non-productive cough GI: Denies: abdominal pain, nausea, vomiting, diarrhea, constipation or hematochezia : Denies: flank pain, difficulty urinating, dysuria or hematuria Musc: Denies: neck pain, back pain or extremity swelling Skin/Breast: Denies: rash or new lesions Neuro: Denies: headache(s), numbness in extremities or weakness in extremities PFSH ED PFSH: Medical History Cognitive dysfunction COPD (chronic obstructive pulmonary disease) Degenerative arthritis Degenerative joint disease of spine Essential hypertension GERD (gastroesophageal reflux disease) Hyperlipidemia Hypothyroidism Obstructive sleep apnea Peripheral neuropathy Posttraumatic stress disorder Prostate cancer metastatic to bone Type 2 diabetes mellitus Vitamin D deficiency Surgical History History of melanoma excision Melanoma in situ S/P angioplasty S/P cholecystectomy S/P partial thyroidectomy Patient has 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 S/P rotator cuff repair bilateral Family History Brother Heart disease Other CAD (coronary artery disease) Cancer Dementia Diabetes Hyperlipidemia Hypertension Lung disease Stroke Social History Smoking and tobacco status: former smoker Quit status (tobacco): has quit using tobacco Year quit tobacco: 1968 Former quit date comment: 2.5ppd x 21; also smoked cigars and pipes during this time Alcohol intake: never Physical Exam Const: COMMON NORMALS: no acute distress, patient oriented x3 and alert GENERAL APPEARANCE: cooperative and comfortable HENMT: COMMON NORMALS: normocephalic HEAD & SCALP: normocephalic TYMPANIC MEMBRANE: TM normal on the right and TM abnormal TM laterality: left Details: erythematous MOUTH: Normal oral and palatal mucosa present THROAT: posterior oropharynx normal and uvula midline Eye: COMMON NORMALS: Equal, round and reactive pupils present and EOMs intact bilaterally GENERAL EYE: appearance normal, both eyes and all related structures PUPIL: Yes Equal, round and reactive pupils present Neck/C-Spine: COMMON NORMALS: supple GENERAL: Yes normal visual inspection Lymph: LYMPHATIC: no lymphadenopathy noted Resp: COMMON NORMALS: normal respiratory effort, No retractions, No use of accessory muscles and clear to auscultation bilaterally AUSCULTATION: clear to auscultation bilaterally Cardio: COMMON NORMALS: regular rate, regular rhythm, S1 normal heart sound pr esent, S2 normal heart sound present, No gallops present (Cardio), No clicks present (Cardio), No murmurs present (Cardio) and Peripheral pulses 2+ throughout RATE: regular rate RHYTHM: regular rhythm HEART SOUNDS: S1 normal heart sound present and S2 normal heart sound present PERIPHERAL PULSES: Peripheral pulses 2+ throughout GI: COMMON NORMALS: Normal to inspection, nondistended, normoactive bowel sounds present, Soft to palpation, non-tender and no masses PALPATION: Yes Soft to palpation : COMMON NORMALS: Yes no CVA tenderness BLADDER/KIDNEY EXAM: Yes no CVA tenderness Back/Pelvis: COMMON NORMALS: no CVA tenderness Extremity: GENERAL: Yes normal exam except as noted Neuro: COMMON NORMALS: patient oriented x3 SENSORIUM/ORIENTATION: Yes alert Skin: COMMON NORMALS: no rashes or lesions noted GENERAL SKIN EXAM: no rashes or lesions noted and dry skin Course Vital Signs: Vital signs: Vital Signs Temperature 97.4 F L 09/08/22 16:34 Pulse Rate 66 09/08/22 16:34 Respiratory Rate 18 09/08/22 16:34 Blood Pressure 154/71 09/08/22 16:34 Pulse Oximetry 97 09/08/22 16:34 Oxygen Delivery Me thod 09/08/22 16:34 MDM - Ear Medical Decision Making Patient is an 18-year-old male comes to the ED with left ear pain. Patient was seen at walk-in clinic a couple days ago and diagnosed with otitis media. he has been taking amoxicillin. But is still having pain. Vitals are stable. Exam shows some mild erythema of the left TM. Rest of exam is benign. Patient was given dose of IM Rocephin here in the ED and was discharged home. Diagnosed left otitis media and told to follow-up with PCP in 1 week for reevaluation. He was told to continue taking his prescribed amoxicillin. Patient understood and agreed with plan. Discharge Plan Discharge Patient Disposition: Home Clinical Impression: Left otitis media Qualifiers: Otitis media type: unspecified Qualified Code(s): H66.92 - Otitis media, unspecified, left ear Condition: Stable Prescriptions: No Action cetirizine [Zyrtec] 10 mg tablet 10 mg PO DAILY PRN metoprolol succinate 25 mg tablet extended release 24 hr 25 mg PO BID amoxicillin 875 mg tablet 875 mg PO Q12H 7 Days Qty: 14 0RF oxycodone 15 mg tablet 15 mg PO BEDTIME PRN (Reason: Pain) 30 Days Qty: 30 0RF Xtandi 40 mg tablet 80 mg PO DAILY Qty: 60 0RF hydromorphone 2 mg tablet 2 mg PO Q6H 30 Days Qty: 120 0RF nifedipine [Adalat CC] 30 mg Tablet Extended Release 30 mg PO BID bupropion HCl 150 mg Tablet Sustained-Release 12 Hr 150 mg PO BID colestipol 1 gram Tablet 2 g PO BID donepezil 10 mg Tablet 10 mg PO QPM loratadine 10 mg Tablet 10 mg PO QAM losartan 100 mg Tablet 100 mg PO QPM metformin 500 mg Tablet 500 mg PO BID multivitamin Tablet 1 tab PO QAM levothyroxine [Synthroid] 150 mcg Tablet 150 mcg PO DAILY tamsulosin 0.4 mg Capsule 0.8 mg PO QAM Glucosamine Chondroitin 550-30-1 mg Capsule 1 cap PO DAILY Lupron Depot (3 month) 11.25 mg Syringe Kit See Rx Instructions .ROUTE .COMPLEX Rx Instructions: every 3 months denosumab 60 mg/mL Syringe See Rx Instructions .ROUTE .COMPLEX Rx Instructions: subcutaneously once a month nitroglycerin 0.4 mg Tablet, Sublingual 0.4 mg SUBLINGUAL Q5M PRN (Reason: chest pain) Rx Instructions: do not exceed 3 doses per episode cholecalciferol (vitamin D3) [Vitamin D3] 25 mcg (1,000 unit) Capsule 25 mcg PO QAM docusate sodium 50 mg capsule See Rx Instructions PO .COMPLEX Rx Instructions: 2caps by mouth in AM and 1cap by mouth in PM omega 1-vps-qus-fish oil [Fish Oil] 1,000 mg (120 mg-180 mg) capsule 1 cap PO BID SSD 1 % cream 1 applic TOPICAL DAILY lidocaine 5 % adhesive patch,medicated 1 patch topical Q12H PRN (Reason: Pain) Discharge Orders: Discharge ED (Routine); Ordered 09/08/22 Ordered By: Tu Galan Discharge Diet: Regular Discharge Activity: Increase activity as tolerated Patient Instructions: Otitis Media - Adult Activity Restrictions/Additional Instructions: Follow-up with medical provider as directed in the next 2 to 3 days for reevaluation. Continue taking previously prescribed antibiotic for ear infection. Return to the ER or your medical provider if condition worsens. Please read and understand discharge instructions. Thank you for choosing [facility] for your healthcare needs today. Please realize this is an emergency room and that we are providing you with a medical screening exam and this may not be complete and all inclusive of all the testing and or work up that you may need to determine your ailment or severity of your illness. It is very important that you follow up as instructed or that you return to the Emergency Department should you have concerns or if your condition changes or worsens in any way. Coding Level of Care Code ED Communications Professor for Adrien Ruvalcaba Exam Comprehensive
[2022-09-08] MEDS: cefTRIAXone 1,000 MG in water for injection-sterile 2.1 ML 1 MG IM (18:01)
== END 2022-09-08 18:23 | disposition home or self-care (01) ==
PROVIDERS: Emergency Provider Physician Assistant
DX: H66.92 Otitis media, unspecified, left ear (principal); Z79.84 Long term (current) use of oral hypoglycemic drugs; Z87.891 Personal history of nicotine dependence; J44.9 Chronic obstructive pulmonary disease, unspecified; I10 Essential (primary) hypertension; E78.5 Hyperlipidemia, unspecified; E11.9 Type 2 diabetes mellitus without complications; Z85.46 Personal history of malignant neoplasm of prostate; Z85.830 Personal history of malignant neoplasm of bone
CPT/HCPCS: 96372; 99282; J0696

== ENCOUNTER 2022-10-01 09:44 | Oncology outpatient (recurring) (ONCR) | payer OTHER, SELFPAY ==
[2022-10-01 10:31] LABS: Basophils # 0.1 10^3/uL (0.0-0.1); Basophils % 0.7 %; Eosinophils # 0.4 10^3/uL (0.0-0.8); Eosinophils % 5.5 %; Hematocrit 37.2 % (42.0-52.0); Lymphocytes # 1.3 10^3/uL (0.8-4.8); Lymphocytes % 16.8 %; Mean Corpuscular HGB Conc 32.3 g/dL (30.0-36.0); Mean Corpuscular Hemoglobin 29.3 pg (28.0-34.0); Mean Platelet Volume 9.9 fL (7.4-10.4); Monocytes # 0.4 10^3/uL (0.2-0.9); Monocytes % 5.9 %; Neutrophils # 5.29 10^3/uL (1.8-7.7); Neutrophils % 70.3 %; Nucleated Red Blood Cells % 0 %; Platelet Count 253 10^3/cmm (130-400); Red Blood Count 4.09 10^6/uL (4.1-5.3); Red Cell Distribution Width 14.1 % (12.1-15.1); White Blood Count 7.5 10^3/uL (4.0-10.0)
[2022-10-01 11:10] LABS: Alanine Aminotransferase 54 U/L (0-41); Albumin Level 4.2 g/dL (3.5-5.2); Alkaline Phosphatase 73 U/L (40-130); Anion Gap 15.1 (5-19); Aspartate Amino Transferase 40 U/L (0-40); Blood Urea Nitrogen 15 mg/dL (8-23); Carbon Dioxide 24 mmol/L (22-29); Chloride 105 mmol/L (98-107); Globulin 2.5 g/dL (1.3-4.6); Glucose 153 mg/dL (65-115); Osmolality Calculated 294 mOsm/kg (285-295); Potassium 4.1 mmol/L (3.5-5.1); Prostate Specific Antigen 0.502 ng/mL (0-4); Sodium 140 mmol/L (136-145); Total Bilirubin 0.5 mg/dL (0.15-1.2); Total Protein 6.7 g/dL (6.6-8.7)
[2022-10-01] MEDS: denosumab 120 mg SDV SUBCUT (12:57)
[2022-10-01] MEDS: leuprolide 22.5 mg Kit IM (12:58)
== END 2022-10-21 23:59 | disposition home or self-care (01) ==
PROVIDERS: PCP Nurse Practitioner; Visit Provider Internal Medicine Medical Oncology
DX: C61 Malignant neoplasm of prostate (principal); C79.51 Secondary malignant neoplasm of bone; Z79.818 Long term (current) use of other agents affecting estrogen receptors and estrogen levels; Z79.899 Other long term (current) drug therapy; Z87.891 Personal history of nicotine dependence
CPT/HCPCS: 36415; 80053; 84153; 85025; 96372; 96402; 99214; J0897; J9217

== ENCOUNTER 2022-10-15 11:26 | Outpatient (CLI) | payer OTHER, SELFPAY ==
--- NOTE | 2022-10-15 11:36 | XR_ITS ---
WS: [id number] Exam: XR hip RT 2-3V wo/w pel* [id number] Date/Time of Exam: 10/15/2022 11:52 AM Reason For Exam: lower back and bilateral hip pain, right>left No fracture or dislocation noted. Minimal degenerative change of the joint compartment. There is a fo cus of bony sclerosis involving the right ischium that might represent a metastatic lesion from the p atient's known prostate CA. XR/XR hip RT 2-3V wo/w pel* [id number] IMPRESSION: 1. Mild DJD of the right hip but no fracture or dislocation. 2. Focus of bony sclerosis in the right ischium that might represent a metastat ic lesion.
== END 2022-10-15 11:27 | disposition home or self-care (01) ==
LOC: RAD 11:30
PROVIDERS: PCP Nurse Practitioner; Visit Provider Internal Medicine Medical Oncology
DX: M25.551 Pain in right hip (principal); C61 Malignant neoplasm of prostate; C79.51 Secondary malignant neoplasm of bone; M16.11 Unilateral primary osteoarthritis, right hip
CPT/HCPCS: 73502

== ENCOUNTER 2022-10-29 13:45 | Oncology outpatient (recurring) (ONCR) | payer OTHER, SELFPAY ==
[2022-10-29] MEDS: denosumab 120 mg SDV SUBCUT (14:24)
== END 2022-11-21 23:59 | disposition home or self-care (01) ==
LOC: ONCMED 13:45
PROVIDERS: PCP Nurse Practitioner; Visit Provider Internal Medicine Medical Oncology
DX: C61 Malignant neoplasm of prostate (principal); C79.51 Secondary malignant neoplasm of bone; Z79.818 Long term (current) use of other agents affecting estrogen receptors and estrogen levels; Z79.899 Other long term (current) drug therapy; Z87.891 Personal history of nicotine dependence
CPT/HCPCS: 96372; J0897

== ENCOUNTER → 2022-11-24 13:35 | Outpatient (BNVA) | payer OTHER, SELFPAY | PROVIDERS: PCP Nurse Practitioner; Visit Provider Nurse Practitioner Family | DX: I10 Essential (primary) hypertension (principal); Z87.891 Personal history of nicotine dependence | CPT/HCPCS: 99213 ==

== ENCOUNTER 2022-11-25 11:11 | Oncology outpatient (recurring) (ONCR) | payer OTHER, SELFPAY ==
[2022-11-25 12:43] LABS: Basophils % 0.5 %; Eosinophils # 0.2 10^3/uL (0.0-0.8); Hematocrit 37.8 % (42.0-52.0); Hemoglobin 12.2 g/dL (11.7-16.6); Lymphocytes # 1.1 10^3/uL (0.8-4.8); Lymphocytes % 17.2 %; Mean Corpuscular HGB Conc 32.3 g/dL (30.0-36.0); Mean Corpuscular Hemoglobin 29.3 pg (28.0-34.0); Mean Corpuscular Volume 90.6 fl (80-94); Mean Platelet Volume 9.8 fL (7.4-10.4); Monocytes # 0.3 10^3/uL (0.2-0.9); Monocytes % 5.4 %; Neutrophils # 4.68 10^3/uL (1.8-7.7); Neutrophils % 73.6 %; Nucleated Red Blood Cells % 0 %; Platelet Count 248 10^3/cmm (130-400); Red Blood Count 4.17 10^6/uL (4.1-5.3); Red Cell Distribution Width 13.7 % (12.1-15.1); White Blood Count 6.4 10^3/uL (4.0-10.0)
[2022-11-25] MEDS: denosumab 120 mg SDV SUBCUT (12:49)
[2022-11-25 13:09] LABS: Alanine Aminotransferase 59 U/L (0-41); Albumin Level 4.3 g/dL (3.5-5.2); Alkaline Phosphatase 73 U/L (40-130); Anion Gap 18.6 (5-19); Aspartate Amino Transferase 43 U/L (0-40); Blood Urea Nitrogen 16 mg/dL (8-23); Calcium 10.7 mg/dL (8.5-10.5); Carbon Dioxide 25 mmol/L (22-29); Chloride 103 mmol/L (98-107); Globulin 3.1 g/dL (1.3-4.6); Glucose 134 mg/dL (65-115); Osmolality Calculated 297 mOsm/kg (285-295); Potassium 4.6 mmol/L (3.5-5.1); Sodium 142 mmol/L (136-145); Total Bilirubin 0.3 mg/dL (0.15-1.2); Total Protein 7.4 g/dL (6.6-8.7)
== END 2022-12-21 23:59 | disposition home or self-care (01) ==
PROVIDERS: PCP Nurse Practitioner; Visit Provider Internal Medicine Medical Oncology
DX: C61 Malignant neoplasm of prostate (principal); C79.51 Secondary malignant neoplasm of bone; Z79.818 Long term (current) use of other agents affecting estrogen receptors and estrogen levels; Z79.899 Other long term (current) drug therapy; Z87.891 Personal history of nicotine dependence
CPT/HCPCS: 36415; 80053; 84153; 85025; 96372; 99215; J0897

== ENCOUNTER 2022-12-24 12:13 | Oncology outpatient (recurring) (ONCR) | payer OTHER, SELFPAY ==
[2022-12-24] MEDS: denosumab 120 mg SDV SUBCUT (13:55)
[2022-12-24] MEDS: leuprolide 22.5 mg Kit IM (13:56)
[2022-12-24 14:35] LABS: Basophils % 0.3 %; Eosinophils # 0.3 10^3/uL (0.0-0.8); Eosinophils % 5.9 %; Hematocrit 34.8 % (42.0-52.0); Hemoglobin 11.5 g/dL (11.7-16.6); Lymphocytes # 1.4 10^3/uL (0.8-4.8); Lymphocytes % 24.4 %; Mean Corpuscular Hemoglobin 30.1 pg (28.0-34.0); Mean Corpuscular Volume 91.1 fl (80-94); Mean Platelet Volume 10.4 fL (7.4-10.4); Monocytes # 0.4 10^3/uL (0.2-0.9); Monocytes % 7.2 %; Neutrophils # 3.59 10^3/uL (1.8-7.7); Neutrophils % 61.9 %; Nucleated Red Blood Cells % 0 %; Platelet Count 242 10^3/cmm (130-400); Red Blood Count 3.82 10^6/uL (4.1-5.3); Red Cell Distribution Width 13.5 % (12.1-15.1); White Blood Count 5.8 10^3/uL (4.0-10.0)
[2022-12-24 15:01] LABS: Alanine Aminotransferase 44 U/L (0-41); Albumin Level 4.4 g/dL (3.5-5.2); Alkaline Phosphatase 96 U/L (40-130); Anion Gap 15.2 (5-19); Aspartate Amino Transferase 44 U/L (0-40); Blood Urea Nitrogen 18 mg/dL (8-23); Calcium 10.8 mg/dL (8.5-10.5); Carbon Dioxide 25 mmol/L (22-29); Chloride 101 mmol/L (98-107); Globulin 2.4 g/dL (1.3-4.6); Glucose 108 mg/dL (65-115); Osmolality Calculated 286 mOsm/kg (285-295); Potassium 4.2 mmol/L (3.5-5.1); Sodium 137 mmol/L (136-145); Total Bilirubin 0.3 mg/dL (0.15-1.2); Total Protein 6.8 g/dL (6.6-8.7)
== END 2023-01-21 23:59 | disposition home or self-care (01) ==
PROVIDERS: PCP Nurse Practitioner; Visit Provider Internal Medicine Medical Oncology
DX: C61 Malignant neoplasm of prostate (principal); C79.51 Secondary malignant neoplasm of bone; Z79.818 Long term (current) use of other agents affecting estrogen receptors and estrogen levels; Z79.899 Other long term (current) drug therapy; Z87.891 Personal history of nicotine dependence; G89.3 Neoplasm related pain (acute) (chronic); Z79.891 Long term (current) use of opiate analgesic; R53.0 Neoplastic (malignant) related fatigue
CPT/HCPCS: 36415; 80053; 84153; 85025; 96401; 96402; 99214; J0897; J9217

== ENCOUNTER 2023-01-03 18:52 | Emergency (ER) | payer OTHER, SELFPAY ==
[2023-01-03 18:56] VITALS: BP 200/71; PULSE 95; RESP 18; TEMP 36.7; O2SAT 94
[2023-01-03 19:00] VITALS: BP 177/71; PULSE 83; RESP 17; O2SAT 94
--- NOTE | 2023-01-03 19:52 | XRR_ITS ---
PROCEDURE INFORMATION: Exam: XR Chest Exam date and time: 01/03/2023 8:16 PM Age: 82 years old Clinical indication: Cough; Additional info: Tremors TECHNIQUE: Imaging protocol: Radiologic exam of the chest. Views: 1 view. COMPARISON: CR (CHEST, ) 05/06/2022 10:26 PM FINDINGS: Lungs: Lungs are clear bilaterally. Pleural spaces: No pleural effusion. No pneumothorax. Heart/Mediastinum: Stable mild enlargement of the cardiac silhouette. Mediastinal contours are unremarkable. Bones/joints: Degenerative changes in the spine and shoulders. Patient has had previous resection of the distal right clavicle. Osseous findings are stable. XR/XR chest 1V portable [id number] IMPRESSION: 1. No acute cardiopulmonary process. 2. Incidental/nonacute findings are listed in the report.
--- NOTE | 2023-01-03 19:52 | CTR_ITS ---
PROCEDURE INFORMATION: Exam: CT Head Without And With Contrast Exam date and time: 01/03/2023 9:44 PM Age: 82 years old Clinical indication: Patient HX: Uncontrolled tremors/shaking. Lethargy. Metastatic prostate/bone cancer. ; Additional info: Tremors with known bone cancer TECHNIQUE: Imaging protocol: Computed tomography of the head without and with contrast. Sagittal, oblique axial, and coronal reformatted images were created and reviewed. Radiation optimization: All CT scans at this facility use at least one of these dose optimization techniques: automated exposure control; mA and/or kV adjustment per patient size (includes targeted exams where dose is matched to clinical indication); or iterative reconstruction. Contrast material: OMNI 350; Contrast volume: 100 ml; Contrast route: INTRAVENOUS (IV); REPORTING DATA: Count of CT and Cardiac NM exams in prior 12 months: This patient has received 3 known CTs and 0 known cardiac nuclear medicine studies in the 12 months prior to the current study. COMPARISON: CT angio headneck* [id number] 01/08/2022 9:20 PM RADIATION DOSE METRICS: Total DLP (mGy-cm): 2107.38 FINDINGS: Brain: No acute intracranial hemorrhage. No acute infarct. No intra-axial or extra-axial masses. Carrasco-white matter differentiation is preserved. No cerebral edema. No extra-axial fluid collections. No midline shift. No evidence for Chiari 1 malformation. No abnormal areas of enhancement. Stable mild atrophy of the brain parenchyma. Stable mildly decreased attenuation in the deep white matter, consistent with mild chronic microangiopathic change. Cerebral ventricles: No hydrocephalus. Paranasal sinuses: Stable mild to moderate to moderate mucoperiosteal thickening in the visualized paranasal sinuses. Mastoid air cells: Visualized mastoid air cells are clear. Visualized mastoid air cells are clear. Orbital cavities: No acute abnormality in the visualized orbits. Bones/joints: No acute fracture. Soft tissues: No acute abnormality of the extracranial soft tissues. Vasculature: Stable atherosclerotic calcifications in the visualized arteries. CT/CT head wo/w con [id number] IMPRESSION: 1. No acute abnormality of the brain. 2. Stable mild to moderate to moderate mucoperiosteal thickening in the visualized paranasal sinuses. 3. Stable mild atrophy of the brain parenchyma. 4. Stable mild chronic white matter microangiopathic change.
[2023-01-03] MEDS: sodium chloride 0.9% 1,000 ML 999 ML IV (20:07)
[2023-01-03] MEDS: HYDROmorphone 1 mg/mL INJ 1 mL IVP (20:07)
[2023-01-03] MEDS: ondansetron 2 mg/ML SDV 2 mL 4 MG IVP (20:07)
[2023-01-03 20:09] LABS: Basophils % 0.2 %; Eosinophils # 0.2 10^3/uL (0.0-0.8); Eosinophils % 2.1 %; Hematocrit 33.3 % (42.0-52.0); Lymphocytes # 0.9 10^3/uL (0.8-4.8); Lymphocytes % 8.9 %; Mean Corpuscular Hemoglobin 29.7 pg (28.0-34.0); Mean Platelet Volume 9.9 fL (7.4-10.4); Monocytes # 0.5 10^3/uL (0.2-0.9); Monocytes % 5.6 %; Neutrophils # 7.88 10^3/uL (1.8-7.7); Neutrophils % 82.9 %; Nucleated Red Blood Cells % 0 %; Platelet Count 236 10^3/cmm (130-400); Red Cell Distribution Width 13.4 % (12.1-15.1); White Blood Count 9.5 10^3/uL (4.0-10.0)
--- NOTE | 2023-01-03 20:20 | W.ED.GENADLT ---
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 he reports that he took some his morphine prior to arrival he did he reports of a prior history of sepsis which is concerning as well as a family concern may be going back into patient reports having tremors and rigors that just are prior to arrival with no known underlying infection patient does not report any metastases to the brain he does not report any other associated symptoms he is foot he reports he feels very cold he did apparently does not [place] any recent fevers patient does not report any recent infections or illnesses patient presents with family for with for further assessment management Associated symptoms: Reports malaise; Deny chest pain, dyspnea, headache(s), nausea, rash, palpitations or vomiting Review of Systems General: Reports: 10 or more systems reviewed and unremarkable except in HPI and below Const: Reports: chills, body aches, fatigue and malaise Eyes: Denies: change in vision or blurry vision Card: Denies: chest pain or palpitations Resp: Denies: dyspnea or productive cough GI: Denies: abdominal pain, nausea or vomiting : Denies: flank pain Musc: Denies: extremity pain or extremity swelling Skin/Breast: Denies: rash or pruritus Neuro: Denies: headache(s) Psych: Denies: anxiety or depression Efrain/Lymph: Denies: easy bleeding All/Imm: Denies: urticaria, throat swelling or facial swelling PFSH ED PFSH: Medical History Cognitive dysfunction COPD (chronic obstructive pulmonary disease) Degenerative arthritis Degenerative joint disease of spine Essential hypertension GERD (gastroesophageal reflux disease) Hyperlipidemia Hypothyroidism Obstructive sleep apnea Peripheral neuropathy Posttraumatic stress disorder Prostate cancer metastatic to bone Type 2 diabetes mellitus Vitamin D deficiency Surgical History History of melanoma excision Melanoma in situ S/P angioplasty S/P cholecystectomy S/P partial thyroidectomy Patient has 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 S/P rotator cuff repair bilateral Family History Brother Heart disease Other CAD (coronary artery disease) Cancer Dementia Diabetes Hyperlipidemia Hypertension Lung disease Stroke Social History Smoking and tobacco status: former smoker Quit status (tobacco): has quit using tobacco Year quit tobacco: 1968 Former quit date comment: 2.5ppd x 21; also smoked cigars and pipes during this time Alcohol intake: never Substance/Drug Use: never Physical Exam Const: COMMON NORMALS: patient oriented x3 and healthy appearing; apparent distress (Patient has active rigors on exam no obvious fever appreciated) HENMT: COMMON NORMALS: normocephalic and atraumatic HEAD & SCALP: normocephalic and atraumatic Eye: COMMON NORMALS: Equal, round and reactive pupils present and EOMs intact bilaterally PUPIL: Yes Equal, round and reactive pupils present Neck/C-Spine: COMMON NORMALS: full ROM, supple and no JVD Lymph: LYMPHATIC: no lymphadenopathy noted Chest: COMMONS NORMALS: normal inspection of the chest and normal palpation of entire chest wall Resp: COMMON NORMALS: normal respiratory effort, No retractions and clear to auscultation bilaterally EFFORT & INSPECTION: Yes able to speak in complete sentences and Yes symmetric chest movement AUSCULTATION: clear to auscultation bilaterally Cardio: COMMON NORMALS: no JVD, regular rate and regular rhythm RATE: regular rate RHYTHM: regular rhythm GI: COMMON NORMALS: Normal to inspection, nondistended, normoactive bowel sounds present, Soft to palpation and non-tender INSPECTION: Yes normal to inspection PALPATION: Yes Soft to palpation : COMMON NORMALS: Yes no CVA tenderness BLADDER/KIDNEY EXAM: Yes no CVA tenderness Back/Pelvis: COMMON NORMALS: no CVA tenderness Extremity: COMMON NORMALS: normal to inspection and full ROM Neuro: COMMON NORMALS: patient oriented x3, CN's II-XII intact bilaterally, moves all extremities and no focal motor deficits Psych: COMMON NORMALS: mental status grossly normal, Normal thought process present, cooperative and normal affect THOUGHT PROCESS: Normal thought process present Skin: COMMON NORMALS: no rashes or lesions noted GENERAL SKIN EXAM: no rashes or lesions noted Course Vital Signs: Vital signs: Vital Signs Temperature 98.3 F 01/03/23 20:30 Pulse Rate 80 01/03/23 21:31 Respiratory Rate 20 H 01/03/23 21:31 Blood Pressure 164/63 01/03/23 21:31 Pulse Oximetry 92 01/03/23 21:31 Oxygen Delivery Me thod Room Air 01/03/23 21:31 MDM - General Adult Medical Decision Making Due to patient's symptoms and condition lab work and imaging will be obtained CT imaging of the head will be obtained to further rule out underlying potential metastatic disease patient will be provided Dilaudid for his breakthrough pain control IV fluids provided for hydration we will continue to follow lab work and imaging came back reassuring patient upon reevaluation is much improved regards his pain control recommended to be discharged home. Advised further follow-up primary care in 3 to 5 days with patient advised to return the interim if any of his symptoms persist or worse. Lab Data 01/03/23 19:44 01/03/23 19:44 Radiology Impressions Chest X-Ray 01/03/23 19:52 IMPRESSION: 1. No acute cardiopulmonary process. 2. Incidental/nonacute findings are listed in the report. Head CT 01/03/23 19:52 IMPRESSION: 1. No acute abnormality of the brain. 2. Stable mild to moderate to moderate mucoperiosteal thickening in the visualized paranasal sinuses. 3. Stable mild atrophy of the brain parenchyma. 4. Stable mild chronic white matter microangiopathic change. Laboratory Results WBC 9.5 10^3/uL (4.0-10.0) 01/03/23 19:44 RBC 3.70 10^6/uL (4.1-5.3) L 01/03/23 19:44 Hgb 11.0 g/dL (11.7-16.6) L 01/03/23 19:44 Hct 33.3 % (42.0-52.0) L 01/03/23 19:44 MCV 90.0 fl (80-94) 01/03/23 19: MCH 29.7 pg (28.0-34.0) 01/03/23 19:44 MCHC 33.0 g/dL (30.0-36.0) 01/03/23 19:44 RDW 13.4 % (12.1-15.1) 01/03/23 19:44 Plt Count 236 10^3/cmm (130-400) 01/03/23 19:44 MPV 9.9 fL (7.4-10.4) 01/03/23 19:44 Neut % (Auto) 82.9 % 01/03/23 19:44 Lymph % (Auto) 8.9 % 01/03/23 19:44 [place] % (Auto) 5.6 % 01/03/23 19:44 Eos % (Auto) 2.1 % 01/03/23 19:44 Baso % (Auto) 0.2 % 01/03/23 19:44 Neut # (Auto) 7.88 10^3/uL (1.8-7.7) H 01/03/23 19:44 Lymph # (Auto) 0.9 10^3/uL (0.8-4.8) 01/03/23 19:44 [place] # (Auto) 0.5 10^3/uL (0.2-0.9) 01/03/23 19:44 Eos # (Auto) 0.2 10^3/uL (0.0-0.8) 01/03/23 19:44 Baso # (Auto) 0.0 10^3/uL (0.0-0.1) 01/03/23 19:44 Nucleated RBC % (auto) 0 % 01/03/23 19:44 Nucleated RBCs # 0.0 /100WBC 01/03/23 19:44 Sodium 136 mmol/L (136-145) 01/03/23 19:44 Potassium 4.3 mmol/L (3.5-5.1) 01/03/23 19:44 Chloride 101 mmol/L (98-107) 01/03/23 19:44 Carbon Dioxide 25 mmol/L (22-29) 01/03/23 19:44 Anion Gap 14.3 (5-19) 01/03/23 19:44 BUN 13 mg/dL (8-23) 01/03/23 19:44 Creatinine 1.0 mg/dL (0.7-1.2) 01/03/23 19:44 GFR Calculation Not Reportable 01/03/23 19:44 Glucose 111 mg/dL (65-115) 01/03/23 19:44 Calculated Osmolality 283 mOsm/kg (285-295) L 01/03/23 19:44 Lactate 1.4 mmol/L (0.5-2.2) 01/03/23 19:44 Calcium 9.9 mg/dL (8.5-10.5) 01/03/23 19:44 Total Bilirubin 0.2 mg/dL (0.15-1.2) 01/03/23 19:44 AST 42 U/L (0-40) H 01/03/23 19:44 ALT 46 U/L (0-41) H 01/03/23 19:44 Alkaline Phosphatase 72 U/L (40-130) 01/03/23 19:44 C-Reactive Protein 3.3 mg/L (0.0-4.9) 01/03/23 19:44 NT-Pro-B Natriuret Pep 240 pg/mL (0-450) 01/03/23 19:44 Total Protein 6.8 g/dL (6.6-8.7) 01/03/23 19:44 Albumin 4.3 g/dL (3.5-5.2) 01/03/23 19:44 Globulin 2.5 g/dL (1.3-4.6) 01/03/23 19:44 Lipase 21 U/L (13-60) 01/03/23 19:44 Urine Color Yellow (Yellow) 01/03/23 21:28 Urine Appearance Clear (CLEAR) 01/03/23 21:28 Urine pH 5 (5-7) 01/03/23 21:28 Ur Specific [place] 1.015 (1.005-1.030) 01/03/23 21:28 Urine Protein Neg (Negative) 01/03/23 21:28 Urine Glucose (UA) Norm (Normal) 01/03/23 21:28 Urine Ketones Negative (Negative) 01/03/23 21:28 Urine Blood Neg (Negative) 01/03/23 21:28 Urine Nitrate Negative (Negative) 01/03/23 21:28 Urine Bilirubin Neg (Negative) 01/03/23 21:28 Urine Urobilinogen Norm mg/dL (Negative) 01/03/23 21:28 Ur Leukocyte Esterase Negative (Negative) 01/03/23 21:28 Discharge Plan Discharge Patient Disposition: Home Clinical Impression: Occasional tremors, Cancer-related breakthrough pain Condition: Stable Prescriptions: New Relistor 150 mg tablet 450 mg PO Q24H Qty: 20 0RF No Action gabapentin 100 mg capsule 100 mg PO TID PRN (Reason: neuropathic pain ) Qty: 10 0RF Spiriva with HandiHaler 18 mcg capsule, w/inhalation device 1 cap inhalation DAILY Qty: 30 3RF Rx Instructions: puncture 1 cap using device; one dose = 2 inhalations hydromorphone 4 mg tablet 4 - 8 mg PO QID PRN (Reason: pain) 30 Days Qty: 180 0RF morphine 30 mg tablet extended release 30 mg PO Q12H 30 Days Qty: 60 0RF amoxicillin 875 mg tablet 875 mg PO Q12H PRN metoprolol succinate 50 mg tablet extended release 24 hr 50 mg PO DAILY cefuroxime axetil 500 mg tablet 500 mg PO ONCE PRN sennosides-docusate sodium [Senna Plus] 8.6-50 mg tablet 2 tab-cap PO TID Qty: 180 1RF lubiprostone [Amitiza] 24 mcg capsule 24 mcg PO BID Qty: 60 1RF cetirizine [Zyrtec] 10 mg tablet 10 mg PO DAILY PRN hydrochlorothiazide 25 mg tablet 12.5 mg PO DAILY Qty: 45 3RF ondansetron 4 mg tablet,disintegrating 4 mg PO Q6H PRN (Reason: nausea and vomiting) Qty: 60 4RF hydralazine 50 mg tablet 50 mg PO TID Qty: 180 6RF Xtandi 40 mg tablet 80 mg PO DAILY Qty: 60 0RF nifedipine [Adalat CC] 30 mg Tablet Extended Release 30 mg PO BID bupropion HCl 150 mg Tablet Sustained-Release 12 Hr 150 mg PO BID colestipol 1 gram Tablet 2 g PO BID donepezil 10 mg Tablet 10 mg PO QPM loratadine 10 mg Tablet 10 mg PO QAM losartan 100 mg Tablet 100 mg PO QPM metformin 500 mg Tablet 500 mg PO BID multivitamin Tablet 1 tab PO QAM levothyroxine [Synthroid] 150 mcg Tablet 150 mcg PO DAILY tamsulosin 0.4 mg Capsule 0.8 mg PO QAM Glucosamine Chondroitin 550-30-1 mg Capsule 1 cap PO DAILY Lupron Depot (3 month) 11.25 mg Syringe Kit See Rx Instructions .ROUTE .COMPLEX Rx Instructions: every 3 months denosumab 60 mg/mL Syringe See Rx Instructions .ROUTE .COMPLEX Rx Instructions: subcutaneously once a month nitroglycerin 0.4 mg Tablet, Sublingual 0.4 mg SUBLINGUAL Q5M PRN (Reason: chest pain) Rx Instructions: do not exceed 3 doses per episode cholecalciferol (vitamin D3) [Vitamin D3] 25 mcg (1,000 unit) Capsule 25 mcg PO QAM docusate sodium 50 mg capsule See Rx Instructions PO .COMPLEX Rx Instructions: 2caps by mouth in AM and 1cap by mouth in PM omega 9-xjj-yen-fish oil [Fish Oil] 1,000 mg (120 mg-180 mg) capsule 1 cap PO BID SSD 1 % cream 1 applic TOPICAL DAILY lidocaine 5 % adhesive patch,medicated 1 patch topical Q12H PRN (Reason: Pain) Discharge Orders: Discharge ED (Routine); Ordered 01/03/23 Ordered By: Juan Yancey Referrals: Melissa Ramirez FNP [Primary Care Provider] - 1-3 days Discharge Diet: Advance as tolerated Discharge Activity: Increase activity as tolerated Patient Instructions: Chronic Pain (ED), Bone Metastasis (ED), Opioid Safety, Pain Management Activity Restrictions/Additional Instructions: Please further follow-up with your primary care doctor in 2 to 3 days. As a consideration please get the prescription as provided to you through the ER for your opiate induced constipation you may require prior Authorization by your primary care doctor or oncologist for this. Please continue on your chronic pain medication as previously prescribed and please return the interim if any of your symptoms persist or worse. Coding Level of Care Code ED Strategic Account Manager for Adrien Ruvalcaba
[2023-01-03 20:26] LABS: Lactate (Lactic Acid level) 1.4 mmol/L (0.5-2.2)
[2023-01-03 20:30] VITALS: BP 144/57; PULSE 105; RESP 21; TEMP 36.8; O2SAT 90
[2023-01-03 20:36] LABS: Alanine Aminotransferase 46 U/L (0-41); Albumin Level 4.3 g/dL (3.5-5.2); Alkaline Phosphatase 72 U/L (40-130); Anion Gap 14.3 (5-19); Aspartate Amino Transferase 42 U/L (0-40); Blood Urea Nitrogen 13 mg/dL (8-23); C Reactive Protein 3.3 mg/L (0.0-4.9); Calcium 9.9 mg/dL (8.5-10.5); Carbon Dioxide 25 mmol/L (22-29); Chloride 101 mmol/L (98-107); Globulin 2.5 g/dL (1.3-4.6); Glucose 111 mg/dL (65-115); Lipase 21 U/L (13-60); NT Pro B Type Natriuretic Pept 240 pg/mL (0-450); Osmolality Calculated 283 mOsm/kg (285-295); Potassium 4.3 mmol/L (3.5-5.1); Sodium 136 mmol/L (136-145); Total Bilirubin 0.2 mg/dL (0.15-1.2); Total Protein 6.8 g/dL (6.6-8.7)
[2023-01-03] MEDS: sodium chloride 0.9% 1,000 ML 150 ML IV (21:03)
[2023-01-03 21:31] VITALS: BP 164/63; PULSE 80; RESP 20; O2SAT 92
[2023-01-03 21:38] LABS: Add Urine Microscopic? NO; Charge for UA Resulting for Rev
[2023-01-03 21:50] LABS: Bilirubin Urine Neg (Negative); Blood Urine Neg (Negative); Glucose Urine UA Norm (Normal); Ketones Urine Negative (Negative); Leukocyte Esterase Urine Negative (Negative); Nitrate Urine Negative (Negative); Protein Urine Neg (Negative); Specific Gravity, Urine 1.015 (1.005-1.030); Urine Appearance Clear (CLEAR); Urine Color Yellow (Yellow); Urobilinogen Urine Norm (Negative); pH Urine 5 (5-7)
[2023-01-03] MEDS: iohexol 350 mg/mL 500 mL Btl (per mL) IV (22:02)
[2023-01-03 23:00] VITALS: RESP 20
[2023-01-03] MEDS: HYDROmorphone 1 mg/mL INJ 1 mL 0.5 MG IVP (23:00)
[2023-01-03 23:15] VITALS: BP 174/72; PULSE 70; RESP 18
== END 2023-01-03 23:17 | disposition home or self-care (01) ==
PROVIDERS: Emergency Provider Emergency Medicine; PCP Nurse Practitioner
DX: G89.3 Neoplasm related pain (acute) (chronic) (principal); R25.1 Tremor, unspecified; Z79.84 Long term (current) use of oral hypoglycemic drugs; J44.9 Chronic obstructive pulmonary disease, unspecified; I10 Essential (primary) hypertension; E78.5 Hyperlipidemia, unspecified; E11.9 Type 2 diabetes mellitus without complications; Z85.830 Personal history of malignant neoplasm of bone; Z85.46 Personal history of malignant neoplasm of prostate; Z87.891 Personal history of nicotine dependence
CPT/HCPCS: 36415; 70470; 71045; 80053; 81003; 83605; 83690; 83880; 85025; 86140; 87040; 96361; 96374; 96375; 96376; 99285; J1170; J2405; J7030; Q9967

== ENCOUNTER → 2023-01-07 11:15 | Outpatient (BNVA) | payer OTHER, SELFPAY | PROVIDERS: PCP Nurse Practitioner; Visit Provider Internal Medicine Cardiovascular Disease | DX: I10 Essential (primary) hypertension (principal); Z87.891 Personal history of nicotine dependence | CPT/HCPCS: 99214 ==

== ENCOUNTER 2023-01-21 09:00 | Outpatient (CLI) | payer OTHER, SELFPAY ==
--- NOTE | 2023-01-21 09:05 | NM_ITS ---
WS: [id number] NUCLEAR MEDICINE BONE SCAN Radiopharmaceutical: 25.6 Tc-99m MDP mCi IV Injection site: antecubital Postinjection imaging delay: 1 hr CLINICAL INFORMATION: compare to previous COMPARISON: March 20, 2022 FINDINGS: Bone lesions: Persistent uptake in the LEFT anterior 7th and 8th ribs similar in appearance the prior examination. No evidence of progressed metastatic disease. Stable punctate focus of activity in the RIGHT humeral neck. Persistent tiny punctate focus of uptake in the LEFT T11 vertebral body Small amount of uptake in the RIGHT lower anterior ribs likely degenerative or posttraumatic near the costovertebral junction. Soft tissue contours: Normal. Kidneys: Normal. Other findings: Postoperative changes bilateral THAs. Degenerative arthritis both AC joints and both ankles. NM/NM bone scan whole body* [id number] IMPRESSION: 1. No evidence of progressed osseous metastatic disease. 2. Stable uptake in the LEFT 7th and 8th ribs anteriorly. 3. Stable punctate focus of activity in the RIGHT humeral neck.
== END 2023-01-21 09:01 | disposition home or self-care (01) ==
LOC: RAD 09:02
PROVIDERS: PCP Nurse Practitioner; Visit Provider Internal Medicine Medical Oncology
DX: C79.51 Secondary malignant neoplasm of bone (principal); C61 Malignant neoplasm of prostate
CPT/HCPCS: 78306; A9561

== ENCOUNTER 2023-02-03 09:45 | Oncology outpatient (recurring) (ONCR) | payer OTHER, SELFPAY ==
[2023-02-03] MEDS: denosumab 120 mg SDV SUBCUT (10:08)
[2023-02-03 10:18] LABS: Basophils % 0.3 %; Eosinophils # 0.3 10^3/uL (0.0-0.8); Eosinophils % 4.3 %; Hemoglobin 10.7 g/dL (11.7-16.6); Lymphocytes % 17.4 %; Mean Corpuscular HGB Conc 32.4 g/dL (30.0-36.0); Mean Corpuscular Hemoglobin 29.3 pg (28.0-34.0); Mean Corpuscular Volume 90.4 fl (80-94); Monocytes # 0.4 10^3/uL (0.2-0.9); Monocytes % 6.3 %; Neutrophils # 4.28 10^3/uL (1.8-7.7); Neutrophils % 71.5 %; Nucleated Red Blood Cells % 0 %; Platelet Count 213 10^3/cmm (130-400); Red Blood Count 3.65 10^6/uL (4.1-5.3); Red Cell Distribution Width 13.8 % (12.1-15.1)
[2023-02-03 10:43] LABS: Alanine Aminotransferase 34 U/L (0-41); Albumin Level 3.8 g/dL (3.5-5.2); Alkaline Phosphatase 69 U/L (40-130); Anion Gap 12.7 (5-19); Aspartate Amino Transferase 24 U/L (0-40); Blood Urea Nitrogen 15 mg/dL (8-23); Calcium 10.2 mg/dL (8.5-10.5); Carbon Dioxide 25 mmol/L (22-29); Chloride 103 mmol/L (98-107); Globulin 2.5 g/dL (1.3-4.6); Glucose 147 mg/dL (65-115); Osmolality Calculated 288 mOsm/kg (285-295); Potassium 3.7 mmol/L (3.5-5.1); Prostate Specific Antigen 0.947 ng/mL (0-4); Sodium 137 mmol/L (136-145); Total Bilirubin 0.3 mg/dL (0.15-1.2); Total Protein 6.3 g/dL (6.6-8.7)
== END 2023-02-20 23:59 | disposition home or self-care (01) ==
LOC: ONCMED 09:45
PROVIDERS: PCP Nurse Practitioner; Visit Provider Internal Medicine Medical Oncology
DX: C61 Malignant neoplasm of prostate (principal); C79.51 Secondary malignant neoplasm of bone; Z79.818 Long term (current) use of other agents affecting estrogen receptors and estrogen levels; Z79.899 Other long term (current) drug therapy; Z87.891 Personal history of nicotine dependence; G89.3 Neoplasm related pain (acute) (chronic); Z79.891 Long term (current) use of opiate analgesic; M54.50 Low back pain, unspecified; K59.00 Constipation, unspecified
CPT/HCPCS: 36415; 80053; 84153; 85025; 96372; 99214; J0897

== ENCOUNTER 2023-02-05 17:41 | Emergency (ER) | payer MEDICARE, OTHER, SELFPAY ==
[2023-02-05 17:53] VITALS: BP 153/64; PULSE 56; RESP 16; O2SAT 96
--- NOTE | 2023-02-05 18:17 | XRR_ITS ---
PROCEDURE INFORMATION: Exam: XR Chest Exam date and time: 02/05/2023 6:26 PM Age: 82 years old Clinical indication: Injury or trauma; Fall; Additional info: Fall with rib pain TECHNIQUE: Imaging protocol: Radiologic exam of the chest. Views: 2 views. COMPARISON: CR (CHEST, ) 01/03/2023 8:16 PM FINDINGS: Lungs: Unremarkable. No consolidation. Pleural spaces: Unremarkable. No pleural effusion. No pneumothorax. Heart/Mediastinum: Cardiomegaly. Bones/joints: Unremarkable. XR/XR chest 2V* [id number] IMPRESSION: Cardiomegaly, lungs are clear.
--- NOTE | 2023-02-05 18:17 | XRR_ITS ---
PROCEDURE INFORMATION: Exam: XR Ribs Exam date and time: 02/05/2023 6:30 PM Age: 82 years old Clinical indication: Injury or trauma; Fall; Rib area, bilateral; Blunt trauma; Additional info: Fall with rib pain TECHNIQUE: Imaging protocol: Radiologic exam of the of the ribs. Views: 3 views. Bilateral ribs. COMPARISON: CR (CHEST, ) 02/05/2023 6:26 PM FINDINGS: Bones/joints: Moderate left 5th anterior rib suspected sclerotic expansile bony lesion, concerning for metastatic disease as seen on prior nuclear medicine bone scan. Soft tissues: Normal. XR/XR ribs BI 3V* [id number] IMPRESSION: 1. No acute findings. 2. Moderate left 5th anterior rib suspected sclerotic expansile bony lesion, concerning for metastatic disease as seen on prior nuclear medicine bone scan.
--- NOTE | 2023-02-05 20:41 | ED_ITS ---
Documented by User: LAUREN Alvarez 02/06/23 02:41 HPI - Fall General: Chief Complaint: Fall Stated Complaint: fall, hip pain Time Seen by Provider: 02/05/23 20:23 History of Present Illness: Patient is in today for right-sided rib pain. He reports that today he was bent over in the yard working on a sprinkler and when he stood up he fell backwards onto his butt and then back and hit the back of his head. He reports that he did not lose consciousness. He does not have a headache. He denies any visual disturbance. He is not on blood thinning medications. He states that he has pain in the right side ribs. Worse with movement and deep breathing. He states that he has terminal metastatic bone cancer and takes Dilaudid and morphine numerous times throughout the day. He reports that his pain is uncontrolled at this time. Associated symptoms-after fall: Denies abdominal pain, chest pain or headache(s) Review of Systems Const: Denies: fever(s) or chills Card: Denies: chest pain, palpitations or irregular heart rhythm Resp: Reports: pain on inspiration; Denies: dyspnea, productive cough or non-productive cough GI: Denies: abdominal pain, nausea or vomiting Musc: Reports: other (Metastatic bone cancer chronic pain-acute right-sided rib pain) Neuro: Denies: headache(s), numbness in extremities, weakness in extremities, sensory changes, dizziness, behavioral changes or Slurred speech present [facility] ED PFSH: Medical History Cognitive dysfunction COPD (chronic obstructive pulmonary disease) Degenerative arthritis Degenerative joint disease of spine Essential hypertension GERD (gastroesophageal reflux disease) Hyperlipidemia Hypothyroidism Obstructive sleep apnea Peripheral neuropathy Posttraumatic stress disorder Prostate cancer metastatic to bone Type 2 diabetes mellitus Vitamin D deficiency Surgical History History of melanoma excision Melanoma in situ S/P angioplasty S/P cholecystectomy S/P partial thyroidectomy Patient has 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 S/P rotator cuff repair bilateral Family History Brother Heart disease Other CAD (coronary artery disease) Cancer Dementia Diabetes Hyperlipidemia Hypertension Lung disease Stroke Social History Smoking and tobacco status: former smoker Quit status (tobacco): has quit using tobacco Year quit tobacco: 1968 Former quit date comment: 2.5ppd x 21; also smoked cigars and pipes during this time Alcohol intake: never Substance/Drug Use: never Physical Exam Const: COMMON NORMALS: patient oriented x3 and alert OTHER: Patient is seemingly in pain. He holds his right side ribs when he is moving or talking. Neck/C-Spine: COMMON NORMALS: no JVD Chest: OTHER: Tenderness to palpation right side anterior and lateral lower ribs. No obvious step-off or bony deformity appreciated. No bruising appreciated. Resp: COMMON NORMALS: normal respiratory effort, No use of accessory muscles and clear to auscultation bilaterally AUSCULTATION: clear to auscultation bilaterally Cardio: COMMON NORMALS: no JVD, regular rate and regular rhythm RATE: regular rate RHYTHM: regular rhythm Neuro: COMMON NORMALS: patient oriented x3, CN's II-XII intact bilaterally, moves all extremities and no focal motor deficits SENSORIUM/ORIENTATION: Yes alert Course Vital Signs: Vital signs: Vital Signs Pulse Rate 53 L 02/05/23 21:42 Respiratory Rate 20 H 02/05/23 22:16 Blood Pressure 173/70 02/05/23 21:42 Pulse Oximetry 97 02/05/23 21:42 Oxygen Delivery Me thod Room Air 02/05/23 21:42 MDM - Fall Medical Decision Making Consider fracture rib, contusion rib, muscle strain X-ray shows cardiomegaly with clear lungs. Rib x-ray shows no acute findings however moderate left fifth anterior rib suspected sclerotic expansile bony lesion concerning for metastatic disease as seen on prior nuclear medicine bone scan Patient is on chronic pain control. His acute pain is not controlled at this time. I discussed this patient's case and current medications with Dr. Martin who recommends 50 mcg of fentanyl IV push x1 dose now to help patient with acute breakthrough pain. Advised patient of x-ray results. Discussed conservative treatment at home. Patient wishes to be discharged home immediately after fentanyl dose administered. Patient was discharged home in stable condition. Advised to return to the ER for any new or worsening symptoms. Lab Data Radiology Impressions Chest X-Ray 02/05/23 18:17 IMPRESSION: Cardiomegaly, lungs are clear. Ribs X-Ray 02/05/23 18:17 IMPRESSION: 1. No acute findings. 2. Moderate left 5th anterior rib suspected sclerotic expansile bony lesion, concerning for metastatic disease as seen on prior nuclear medicine bone scan. Discharge Plan Discharge Patient Disposition: Home Clinical Impression: Fall, Prostate cancer metastatic to bone, Contusion of rib on right side Condition: Stable Prescriptions: No Action gabapentin 100 mg capsule 100 mg PO TID PRN (Reason: neuropathic pain ) Qty: 10 0RF Spiriva with HandiHaler 18 mcg capsule, w/inhalation device 1 cap inhalation DAILY Qty: 30 3RF Rx Instructions: puncture 1 cap using device; one dose = 2 inhalations amoxicillin 875 mg tablet 875 mg PO Q12H PRN metoprolol succinate 50 mg tablet extended release 24 hr 50 mg PO DAILY cefuroxime axetil 500 mg tablet 500 mg PO ONCE PRN sennosides-docusate sodium [Senna Plus] 8.6-50 mg tablet 2 tab-cap PO TID Qty: 180 1RF cetirizine [Zyrtec] 10 mg tablet 10 mg PO DAILY PRN hydrochlorothiazide 25 mg tablet 50 mg PO DAILY lubiprostone [Amitiza] 24 mcg capsule 24 mcg PO BID Qty: 60 1RF morphine 30 mg tablet extended release 30 mg PO Q12H 30 Days Qty: 60 0RF hydromorphone 4 mg tablet 4 - 8 mg PO QID PRN (Reason: pain) 30 Days Qty: 180 0RF ondansetron 4 mg tablet,disintegrating 4 mg PO Q6H PRN (Reason: nausea and vomiting) Qty: 60 4RF hydralazine 50 mg tablet 50 mg PO TID Qty: 180 6RF Xtandi 40 mg tablet 80 mg PO DAILY Qty: 60 0RF nifedipine [Adalat CC] 30 mg Tablet Extended Release 30 mg PO BID bupropion HCl 150 mg Tablet Sustained-Release 12 Hr 150 mg PO BID colestipol 1 gram Tablet 2 g PO BID donepezil 10 mg Tablet 10 mg PO QPM loratadine 10 mg Tablet 10 mg PO QAM losartan 100 mg Tablet 100 mg PO QPM metformin 500 mg Tablet 500 mg PO BID multivitamin Tablet 1 tab PO QAM levothyroxine [Synthroid] 150 mcg Tablet 150 mcg PO DAILY tamsulosin 0.4 mg Capsule 0.8 mg PO QAM Glucosamine Chondroitin 550-30-1 mg Capsule 1 cap PO DAILY Lupron Depot (3 month) 11.25 mg Syringe Kit See Rx Instructions .ROUTE .COMPLEX Rx Instructions: every 3 months denosumab 60 mg/mL Syringe See Rx Instructions .ROUTE .COMPLEX Rx Instructions: subcutaneously once a month nitroglycerin 0.4 mg Tablet, Sublingual 0.4 mg SUBLINGUAL Q5M PRN (Reason: chest pain) Rx Instructions: do not exceed 3 doses per episode cholecalciferol (vitamin D3) [Vitamin D3] 25 mcg (1,000 unit) Capsule 25 mcg PO QAM docusate sodium 50 mg capsule See Rx Instructions PO .COMPLEX Rx Instructions: 2caps by mouth in AM and 1cap by mouth in PM omega 8-ipp-kun-fish oil [Fish Oil] 1,000 mg (120 mg-180 mg) capsule 1 cap PO BID SSD 1 % cream 1 applic TOPICAL DAILY lidocaine 5 % adhesive patch,medicated 1 patch topical Q12H PRN (Reason: Pain) Relistor 150 mg tablet 450 mg PO Q24H Qty: 20 0RF Discharge Orders: Discharge ED (Routine); Ordered 02/05/23 Ordered By: Abbie Mejia Referrals: Melissa Ramirez FNP [Primary Care Provider] - Discharge Diet: Usual diet Discharge Activity: Increase activity as tolerated Patient Instructions: Rib Contusion (ED) Activity Restrictions/Additional Instructions: Your x-rays did not show any evidence of acute fracture. I recommend conservative treatment at home including alternating ice and heat to the area. Use a pillow to splint and make sure that you are coughing and deep breathing so that you do not develop pneumonia from shallow breathing due to pain. Continue with your current pain control regimen at home and contact your primary care provider for any needed adjustments. Return to the ER as needed for new or worsening symptoms Coding Level of Care Code ED Fingerprint Clerk for Adrien Fwd Documented by User: Isaac Martin MD 02/06/23 07:05 HPI - Fall General: Chief Complaint: Fall Stated Complaint: fall, hip pain Time Seen by Provider: 02/05/23 20:23 PFSH ED PFSH: Medical History Cognitive dysfunction COPD (chronic obstructive pulmonary disease) Degenerative arthritis Degenerative joint disease of spine Essential hypertension GERD (gastroesophageal reflux disease) Hyperlipidemia Hypothyroidism Obstructive sleep apnea Peripheral neuropathy Posttraumatic stress disorder Prostate cancer metastatic to bone Type 2 diabetes mellitus Vitamin D deficiency Surgical History History of melanoma excision Melanoma in situ S/P angioplasty S/P cholecystectomy S/P partial thyroidectomy Patient has 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 S/P rotator cuff repair bilateral Family History Brother Heart disease Other CAD (coronary artery disease) Cancer Dementia Diabetes Hyperlipidemia Hypertension Lung disease Stroke Social History Smoking and tobacco status: former smoker Quit status (tobacco): has quit using tobacco Year quit tobacco: 1968 Former quit date comment: 2.5ppd x 21; also smoked cigars and pipes during this time Alcohol intake: never Substance/Drug Use: never Course Vital Signs: Vital signs: Vital Signs Pulse Rate 53 L 02/05/23 21:42 Respiratory Rate 20 H 02/05/23 22:16 Blood Pressure 173/70 02/05/23 21:42 Pulse Oximetry 97 02/05/23 21:42 Oxygen Delivery Me thod Room Air 02/05/23 21:42 MDM - Fall Medical Decision Making Consider fracture rib, contusion rib, muscle strain X-ray shows cardiomegaly with clear lungs. Rib x-ray shows no acute findings however moderate left fifth anterior rib suspected sclerotic expansile bony lesion concerning for metastatic disease as seen on prior nuclear medicine bone scan Patient is on chronic pain control. His acute pain is not controlled at this time. I discussed this patient's case and current medications with Dr. Martin who recommends 50 mcg of fentanyl IV push x1 dose now to help patient with acute breakthrough pain. Advised patient of x-ray results. Discussed conservative treatment at home. Patient wishes to be discharged home immediately after fent anyl dose administered. Patient was discharged home in stable condition. Advised to return to the ER for any new or worsening symptoms. I discussed this case with MORENA Alvarez. I have reviewed documentation. Isaac Martin MD Emergency Medicine Lab Data Radiology Impressions Chest X-Ray 02/05/23 18:17 IMPRESSION: Cardiomegaly, lungs are clear. Ribs X-Ray 02/05/23 18:17 IMPRESSION: 1. No acute findings. 2. Moderate left 5th anterior rib suspected sclerotic expansile bony lesion, concerning for metastatic disease as seen on prior nuclear medicine bone scan. Discharge Plan Discharge Patient Disposition: Home Clinical Impression: Fall, Prostate cancer metastatic to bone, Contusion of rib on right side Condition: Stable Prescriptions: No Action gabapentin 100 mg capsule 100 mg PO TID PRN (Reason: neuropathic pain ) Qty: 10 0RF Spiriva with HandiHaler 18 mcg capsule, w/inhalation device 1 cap inhalation DAILY Qty: 30 3RF Rx Instructions: puncture 1 cap using device; one dose = 2 inhalations amoxicillin 875 mg tablet 875 mg PO Q12H PRN metoprolol succinate 50 mg tablet extended release 24 hr 50 mg PO DAILY cefuroxime axetil 500 mg tablet 500 mg PO ONCE PRN sennosides-docusate sodium [Senna Plus] 8.6-50 mg tablet 2 tab-cap PO TID Qty: 180 1RF cetirizine [Zyrtec] 10 mg tablet 10 mg PO DAILY PRN hydrochlorothiazide 25 mg tablet 50 mg PO DAILY lubiprostone [Amitiza] 24 mcg capsule 24 mcg PO BID Qty: 60 1RF morphine 30 mg tablet extended release 30 mg PO Q12H 30 Days Qty: 60 0RF hydromorphone 4 mg tablet 4 - 8 mg PO QID PRN (Reason: pain) 30 Days Qty: 180 0RF ondansetron 4 mg tablet,disintegrating 4 mg PO Q6H PRN (Reason: nausea and vomiting) Qty: 60 4RF hydralazine 50 mg tablet 50 mg PO TID Qty: 180 6RF Xtandi 40 mg tablet 80 mg PO DAILY Qty: 60 0RF nifedipine [Adalat CC] 30 mg Tablet Extended Release 30 mg PO BID bupropion HCl 150 mg Tablet Sustained-Release 12 Hr 150 mg PO BID colestipol 1 gram Tablet 2 g PO BID donepezil 10 mg Tablet 10 mg PO QPM loratadine 10 mg Tablet 10 mg PO QAM losartan 100 mg Tablet 100 mg PO QPM metformin 500 mg Tablet 500 mg PO BID multivitamin Tablet 1 tab PO QAM levothyroxine [Synthroid] 150 mcg Tablet 150 mcg PO DAILY tamsulosin 0.4 mg Capsule 0.8 mg PO QAM Glucosamine Chondroitin 550-30-1 mg Capsule 1 cap PO DAILY Lupron Depot (3 month) 11.25 mg Syringe Kit See Rx Instructions .ROUTE .COMPLEX Rx Instructions: every 3 months denosumab 60 mg/mL Syringe See Rx Instructions .ROUTE .COMPLEX Rx Instructions: subcutaneously once a month nitroglycerin 0.4 mg Tablet, Sublingual 0.4 mg SUBLINGUAL Q5M PRN (Reason: chest pain) Rx Instructions: do not exceed 3 doses per episode cholecalciferol (vitamin D3) [Vitamin D3] 25 mcg (1,000 unit) Capsule 25 mcg PO QAM docusate sodium 50 mg capsule See Rx Instructions PO .COMPLEX Rx Instructions: 2caps by mouth in AM and 1cap by mouth in PM omega 4-pdj-kou-fish oil [Fish Oil] 1,000 mg (120 mg-180 mg) capsule 1 cap PO BID SSD 1 % cream 1 applic TOPICAL DAILY lidocaine 5 % adhesive patch,medicated 1 patch topical Q12H PRN (Reason: Pain) Relistor 150 mg tablet 450 mg PO Q24H Qty: 20 0RF Discharge Orders: Discharge ED (Routine); Ordered 02/05/23 Ordered By: Abbie Mejia Referrals: Melissa Ramirez FNP [Primary Care Provider] - Discharge Diet: Usual diet Discharge Activity: Increase activity as tolerated Patient Instructions: Rib Contusion (ED) Activity Restrictions/Additional Instructions: Your x-rays did not show any evidence of acute fracture. I recommend conservative treatment at home including alternating ice and heat to the area. Use a pillow to splint and make sure that you are coughing and deep breathing so that you do not develop pneumonia from shallow breathing due to pain. Continue with your current pain control regimen at home and contact your primary care provider for any needed adjustments. Return to the ER as needed for new or worsening symptoms Coding Level of Care Code ED Fingerprint Clerk for Adrien Ruvalcaba
[2023-02-05 21:42] VITALS: BP 173/70; PULSE 53; RESP 16; O2SAT 97
[2023-02-05 22:16] VITALS: RESP 20
[2023-02-05] MEDS: ondansetron 2 mg/ML SDV 2 mL 4 MG IVP (22:16)
[2023-02-05] MEDS: fentaNYL 50 mcg/mL INJ 2mL IVP (22:16)
== END 2023-02-05 22:49 | disposition home or self-care (01) ==
PROVIDERS: Emergency Provider Nurse Practitioner Family; PCP Nurse Practitioner
DX: S20.211A Contusion of right front wall of thorax, initial encounter (principal); W19.XXXA Unspecified fall, initial encounter; Y93.H2 Activity, gardening and landscaping; Y92.007 Garden or yard of unspecified non-institutional (private) residence as the place of occurrence of the external cause; R93.7 Abnormal findings on diagnostic imaging of other parts of musculoskeletal system
CPT/HCPCS: 71046; 71110; 96374; 96375; 99284; J2405; J3010

== ENCOUNTER 2023-02-19 13:12 | Outpatient (CLI) | payer OTHER, SELFPAY ==
--- NOTE | 2023-02-19 13:45 | MR_ITS ---
WS: [id number] MRI PELVIS with and without CONTRAST. COMPARISON: 11/27/2021. Bone scan 01/21/2023 Multiplanar, multisequence imaging is performed with and without contrast. MultiHance 20 mL IV. Previously described multiple metastatic lesions within the pelvis have significantly improved since the prior study. These previously described lesions do not enhance on today's study. There are no new bone lesions which are enhancing. There are nonenhancing decreased areas of signal on the T1 and T2 sequences within the sacrum and arnoldo. The stent with treated bone lesions. Very slight increased T2 s ignal in the proximal RIGHT femoral diaphysis. This was negative on the recent bone scan. May be reginaldo fact as there is significant distortion of the soft tissues at the edge of the magnet. There is no abnormal signal or enhancement within the RIGHT ischium to correspond to the sclerotic fo cus noted on a prior radiograph of 10/15/2022. No ascites or adenopathy. Very mild narrowing of the hip joints. No joint effusion. MR/MR pelvis wo/w con [id number] IMPRESSION: 1. Previously described enhancing metastatic lesions within the pelvis have be en treated. There is no residual enhancement. No new foci of abnormal signal or enhancement identified. Findings are consistent with treated metastatic diseas e. 2. No new lesion within the RIGHT ischium. 3. No adenopathy or ascites.
[2023-02-19] MEDS: gadobenate dimeglumine 20 mL vial IV (15:44)
== END 2023-02-19 13:13 | disposition home or self-care (01) ==
LOC: RAD 13:13
PROVIDERS: PCP Nurse Practitioner; Visit Provider Internal Medicine Medical Oncology
DX: C61 Malignant neoplasm of prostate (principal); C79.51 Secondary malignant neoplasm of bone
CPT/HCPCS: 72197; A9577

== ENCOUNTER 2023-02-23 12:41 | Outpatient (CLI) | payer OTHER, SELFPAY ==
--- NOTE | 2023-02-23 13:00 | MR_ITS ---
WS: [id number] MRI LUMBAR SPINE WITH AND WITHOUT CONTRAST. HISTORY: lower back pain, prostate ca, bone mets COMPARISON: CT 01/06/2022, bone scan imaging 01/21/2023 and 03/20/2022 TECHNIQUE: Sagittal and axial multisequence imaging is submitted. MultiHance 20 mL IV. T4 increased T2 signal on the localizer is likely a hemangioma. Mild straightening of the normal lumbar lordosis. Mixed signal lesion in L3 to the LEFT of midline. P redominantly increased signal on the T1, STIR and T2 sequences. There is slight enhancement. No addit ional signal abnormality to suggest metastatic disease. There are a few nonenhancing marrow lesions a nd within T12 and L1 which do not enhance and are probably from treated metastatic disease. Mild desiccation and narrowing of the disc spaces. Conus terminates normally at L1-2 disc level. L1-L2: No stenosis. L2-L3: No stenosis. L3-L4: Mild osteophytic ridging and disc bulging and facet arthritis. No high-grade stenosis. L4-L5: Mild osteophytic ridging and annular disc bulging. Ligamentum flavum and facet arthritis. Mild subarticular recess encroachment. L5-S1: Central and LEFT foraminal disc protrusions. No high-grade stenosis. There is signal abnormalities within the sacrum and the iliac. Metastatic lesions have been previousl y described within the sacrum. On the postcontrast imaging no significant enhancement within the visu alized lesions. The entire sacrum is not included on this examination. There are several lesions with in the sacrum and the iliac is visualized without enhancement. MR/MR lumbar spine wo/w con [id number] IMPRESSION: 1. No definite metastatic lesions within the lumbar spine. 2. Metastatic lesions within the sacrum do not enhance. Probably representing treated metastatic lesions. 3. No significant central or foraminal stenosis.
[2023-02-23] MEDS: gadobenate dimeglumine 20 mL vial IV (14:00)
== END 2023-02-23 12:42 | disposition home or self-care (01) ==
LOC: RAD 12:44
PROVIDERS: PCP Nurse Practitioner; Visit Provider Internal Medicine Medical Oncology
DX: C61 Malignant neoplasm of prostate (principal); C79.51 Secondary malignant neoplasm of bone
CPT/HCPCS: 72158; A9577

== ENCOUNTER → 2023-03-09 10:49 | Outpatient (BNVA) | payer OTHER, SELFPAY | PROVIDERS: PCP Nurse Practitioner; Visit Provider Podiatrist Foot & Ankle Surgery | DX: E11.42 Type 2 diabetes mellitus with diabetic polyneuropathy (principal); B35.1 Tinea unguium; M20.41 Other hammer toe(s) (acquired), right foot; M20.42 Other hammer toe(s) (acquired), left foot | CPT/HCPCS: 11721; 99204 ==

== ENCOUNTER 2023-03-18 12:45 | Oncology outpatient (recurring) (ONCR) | payer OTHER, SELFPAY ==
[2023-03-18 12:53] VITALS: BP 150/59; PULSE 61; RESP 18; TEMP 36.1; O2SAT 93; BMI 33.9
[2023-03-18 13:08] LABS: Basophils % 0.5 %; Eosinophils # 0.2 10^3/uL (0.0-0.8); Eosinophils % 2.8 %; Hematocrit 34.8 % (42.0-52.0); Hemoglobin 11.4 g/dL (11.7-16.6); Lymphocytes # 1.4 10^3/uL (0.8-4.8); Lymphocytes % 21.1 %; Mean Corpuscular HGB Conc 32.8 g/dL (30.0-36.0); Mean Corpuscular Hemoglobin 29.9 pg (28.0-34.0); Mean Corpuscular Volume 91.3 fl (80-94); Mean Platelet Volume 9.4 fL (7.4-10.4); Monocytes # 0.5 10^3/uL (0.2-0.9); Monocytes % 7.2 %; Neutrophils # 4.37 10^3/uL (1.8-7.7); Neutrophils % 68.2 %; Nucleated Red Blood Cells % 0 %; Platelet Count 264 10^3/cmm (130-400); Red Blood Count 3.81 10^6/uL (4.1-5.3); White Blood Count 6.4 10^3/uL (4.0-10.0)
[2023-03-18 13:40] LABS: Alanine Aminotransferase 47 U/L (0-41); Alkaline Phosphatase 69 U/L (40-130); Anion Gap 13.4 (5-19); Aspartate Amino Transferase 36 U/L (0-40); Blood Urea Nitrogen 15 mg/dL (8-23); Calcium 10.3 mg/dL (8.5-10.5); Carbon Dioxide 27 mmol/L (22-29); Chloride 101 mmol/L (98-107); Globulin 2.5 g/dL (1.3-4.6); Glucose 113 mg/dL (65-115); Osmolality Calculated 286 mOsm/kg (285-295); Potassium 4.4 mmol/L (3.5-5.1); Sodium 137 mmol/L (136-145); Total Bilirubin 0.3 mg/dL (0.15-1.2); Total Protein 6.5 g/dL (6.6-8.7)
[2023-03-18] MEDS: denosumab 120 mg SDV SUBCUT (15:14)
[2023-03-18] MEDS: leuprolide 22.5 mg Kit IM (15:14)
== END 2023-03-23 23:59 | disposition home or self-care (01) ==
PROVIDERS: PCP Nurse Practitioner; Visit Provider Internal Medicine Medical Oncology
DX: C61 Malignant neoplasm of prostate (principal); C79.51 Secondary malignant neoplasm of bone; Z79.818 Long term (current) use of other agents affecting estrogen receptors and estrogen levels; Z79.899 Other long term (current) drug therapy; Z87.891 Personal history of nicotine dependence; G89.3 Neoplasm related pain (acute) (chronic); Z79.891 Long term (current) use of opiate analgesic; Z79.83 Long term (current) use of bisphosphonates
CPT/HCPCS: 36415; 80053; 84153; 85025; 96372; 96402; 99214; J0897; J9217

== ENCOUNTER 2023-04-03 17:03 | Emergency (ER) | payer OTHER, SELFPAY ==
--- NOTE | 2023-04-03 17:06 | XRR_ITS ---
PROCEDURE INFORMATION: Exam: XR Abdomen Exam date and time: 04/03/2023 6:23 PM Age: 83 years old Clinical indication: Constipation TECHNIQUE: Imaging protocol: Radiologic exam of the abdomen. Views: Frontal supine view of the abdomen. 1 View. COMPARISON: [place] [id number] 01/06/2022 11:53 PM FINDINGS: Gastrointestinal tract: Severe colonic stool burden. No bowel dilation. Bones/joints: Unremarkable. XR/XR KUB [id number] IMPRESSION: Severe colonic stool burden.
[2023-04-03 17:13] VITALS: BP 148/72; PULSE 61; RESP 16; TEMP 36.7; O2SAT 95; BMI 33.5
[2023-04-03] MEDS: lactulose oral liq 20 gm/30 mL UDC 30 GM PO (19:10)
--- NOTE | 2023-04-03 19:15 | ED_ITS ---
HPI - Abdominal Pain General: Chief Complaint: Abdominal Pain Stated Complaint: no bm for week, [facility] Time Seen by Provider: 04/03/23 18:26 Source: patient Mode of arrival: ambulatory Limitations: no limitations History of Present Illness: 83-year-old male states that he has cancer he is on morphine and Dilaudid for this he has had issues with constipation states he has not had a bowel movement in a week. He states he has tried multiple meds in has not been able to have one he is having pain in his rectum he denies any vomiting denies any worsening improving factors Associated Symptoms: Reports constipation; Denies chills, diarrhea, dysuria, fever(s), nausea and vomiting Review of Systems Const: Denies: fever(s) or chills ENMT: Denies: throat pain or dental pain Card: Denies: chest pain Resp: Denies: dyspnea GI: Reports: abdominal pain and constipation; Denies: nausea, vomiting or diarrhea : Denies: dysuria Musc: Denies: neck pain or back pain Skin/Breast: Denies: rash Neuro: Denies: headache(s) PFSH ED PFSH: Medical History Cognitive dysfunction COPD (chronic obstructive pulmonary disease) Degenerative arthritis Degenerative joint disease of spine Essential hypertension GERD (gastroesophageal reflux disease) Hyperlipidemia Hypothyroidism Obstructive sleep apnea Peripheral neuropathy Posttraumatic stress disorder Prostate cancer metastatic to bone Type 2 diabetes mellitus Vitamin D deficiency Surgical History History of melanoma excision Melanoma in situ S/P angioplasty S/P cholecystectomy S/P partial thyroidectomy Patient has 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 S/P rotator cuff repair bilateral Family History Brother Heart disease Other CAD (coronary artery disease) Cancer Dementia Diabetes Hyperlipidemia Hypertension Lung disease Stroke Social History Smoking and tobacco status: former smoker Quit status (tobacco): has quit using tobacco Year quit tobacco: 1968 Former quit date comment: 2.5ppd x 21; also smoked cigars and pipes during this time Alcohol intake: never Substance/Drug Use: never Physical Exam Const: COMMON NORMALS: no acute distress, patient oriented x3 and healthy appearing HENMT: COMMON NORMALS: normocephalic and atraumatic HEAD & SCALP: n ormocephalic and atraumatic Neck/C-Spine: COMMON NORMALS: supple Chest: COMMONS NORMALS: normal inspection of the chest Resp: COMMON NORMALS: normal respiratory effort Cardio: COMMON NORMALS: regular rate, regular rhythm and No murmurs present (Cardio) RATE: regular rate RHYTHM: regular rhythm GI: COMMON NORMALS: Normal to inspection, nondistended, normoactive bowel sounds present, Soft to palpation, non-tender and no masses PALPATION: Yes Soft to palpation Extremity: COMMON NORMALS: normal to inspection and full ROM Neuro: COMMON NORMALS: patient oriented x3, moves all extremities and no focal motor deficits Psych: COMMON NORMALS: mental status grossly normal, Normal thought process present and cooperative THOUGHT PROCESS: Normal thought process present Skin: COMMON NORMALS: no rashes or lesions noted and no wounds GENERAL SKIN EXAM: no rashes or lesions noted Procedures Rectal Disimpaction Indication: fecal impaction Procedural Sedation: No Sedation/Analgesia: none Technique: manual disimpaction with gloved finger Result: significant stool output Patient Tolerated Procedure: well Complications: none Course Vital Signs: Vital signs: Vital Signs Temperature 98.0 F 04/03/23 17:13 Pulse Rate 62 04/03/23 19:23 Respiratory Rate 18 04/03/23 19:23 Blood Pressure 164/67 04/03/23 19:23 Pulse Oximetry 95 04/03/23 19:23 Oxygen Delivery Me thod Room Air 04/03/23 19:23 MDM - Abdominal Pain Medical Decision Making Patient presents here with constipation I did a manual disimpaction he feels much improved he is on pain meds chronically says he states forgets to take his laxative sometimes he is to take them as scheduled. Lab Data Labs/Radiology: Radiology Impressions KUB X-Ray 04/03/23 17:06 IMPRESSION: Severe colonic stool burden. Discharge Plan Discharge Patient Disposition: Home Clinical Impression: Constipation Condition: Stable Prescriptions: No Action Spiriva with HandiHaler 18 mcg capsule, w/inhalation device 1 cap inhalation DAILY Qty: 30 3RF Rx Instructions: puncture 1 cap using device; one dose = 2 inhalations [employer] [facility] 160-9-4.8 mcg/actuation HFA aerosol inhaler 2 inh inhalation BID metoprolol succinate 50 mg tablet extended release 24 hr 50 mg PO DAILY sennosides-docusate sodium [Senna Plus] 8.6-50 mg tablet 2 tab-cap PO TID Qty: 180 1RF cetirizine [Zyrtec] 10 mg tablet 10 mg PO DAILY PRN hydrochlorothiazide 25 mg tablet 50 mg PO DAILY lubiprostone [Amitiza] 24 mcg capsule 24 mcg PO BID Qty: 60 1RF morphine 30 mg tablet extended release 30 mg PO Q12H 30 Days Qty: 60 0RF hydromorphone 4 mg tablet 4 - 8 mg PO QID PRN (Reason: pain) 30 Days Qty: 180 0RF ondansetron 4 mg tablet,disintegrating 4 mg PO Q6H PRN (Reason: nausea and vomiting) Qty: 60 4RF hydralazine 50 mg tablet 50 mg PO TID Qty: 180 6RF tamsulosin 0.4 mg capsule 0.8 mg PO QAM Qty: 180 0RF Xtandi 40 mg tablet 80 mg PO DAILY Qty: 60 2RF gabapentin 100 mg capsule 100 mg PO TID PRN (Reason: neuropathic pain ) Qty: 60 0RF nifedipine [Adalat CC] 30 mg Tablet Extended Release 30 mg PO BID bupropion HCl 150 mg Tablet Sustained-Release 12 Hr 150 mg PO BID colestipol 1 gram Tablet 2 g PO BID donepezil 10 mg Tablet 10 mg PO QPM loratadine 10 mg Tablet 10 mg PO QAM losartan 100 mg Tablet 100 mg PO QPM metformin 500 mg Tablet 500 mg PO BID multivitamin Tablet 1 tab PO QAM levothyroxine [Synthroid] 150 mcg Tablet 150 mcg PO DAILY Glucosamine Chondroitin 550-30-1 mg Capsule 1 cap PO DAILY Lupron Depot (3 month) 11.25 mg Syringe Kit See Rx Instructions .ROUTE .COMPLEX Rx Instructions: every 3 months denosumab 60 mg/mL Syringe See Rx Instructions .ROUTE .COMPLEX Rx Instructions: subcutaneously once a month nitroglycerin 0.4 mg Tablet, Sublingual 0.4 mg SUBLINGUAL Q5M PRN (Reason: chest pain) Rx Instructions: do not exceed 3 doses per episode cholecalciferol (vitamin D3) [Vitamin D3] 25 mcg (1,000 unit) Capsule 25 mcg PO QAM docusate sodium 50 mg capsule See Rx Instructions PO .COMPLEX Rx Instructions: 2caps by mouth in AM and 1cap by mouth in PM omega 2-eyk-dvn-fish oil [Fish Oil] 1,000 mg (120 mg-180 mg) capsule 1 cap PO BID SSD 1 % cream 1 applic TOPICAL DAILY lidocaine 5 % adhesive patch,medicated 1 patch topical Q12H PRN (Reason: Pain) Relistor 150 mg tablet 450 mg PO Q24H Qty: 20 0RF Discharge Orders: Discharge ED (Routine); Ordered 04/03/23 Ordered By: Yenifer Tong Referrals: Melissa Ramirez FNP [Primary Care Provider] - Discharge Diet: Advance as tolerated Discharge Activity: Resume usual activity Patient Instructions: Constipation (ED) Coding Level of Care Code 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
[2023-04-03 19:23] VITALS: BP 164/67; PULSE 62; RESP 18; O2SAT 95
[2023-04-03] MEDS: glycerin adult supp 1 EACH PR (19:58)
[2023-04-03 21:17] VITALS: PULSE 64; RESP 18; O2SAT 95
== END 2023-04-03 21:12 | disposition home or self-care (01) ==
PROVIDERS: Emergency Provider Emergency Medicine; PCP Nurse Practitioner
DX: K59.00 Constipation, unspecified (principal); Z79.891 Long term (current) use of opiate analgesic
CPT/HCPCS: 74018; 99283

== ENCOUNTER 2023-04-12 20:49 | Emergency (ER) | payer OTHER, SELFPAY ==
[2023-04-12 20:59] VITALS: PULSE 68; RESP 18; TEMP 36.6; O2SAT 95; BMI 33.5
[2023-04-12 21:02] VITALS: BP 124/53
--- NOTE | 2023-04-12 21:33 | W.ED.HA ---
Documented by User: CONCHA Padron 04/12/23 21:42 HPI - Headache General: Chief Complaint: Headache Stated Complaint: headache Time Seen by Provider: 04/12/23 21:02 History of Present Illness: Aquiles is an 83-year-old man with metastatic prostate cancer to bone. He has regular oncology follow-up. He presents today with a severe headache and neck pain. Onset of symptoms abruptly at 1830 this evening. Sent reports he had been feeling ill throughout the day and constipated. He reportedly took lactulose and had several liquid stools. Patient describes his headache as the worst headache he has ever had; it is caused nausea vomiting dizziness and at 1 point he had hypotension. His blood pressure at home was in the 90s systolic Currently blood pressures are 123/53 He has a normal sinus rhythm. He is alert and oriented and follows all commands Associated symptoms: Reports nausea and vomiting; Deny chest pain, confusion, fever(s) or malaise Review of Systems General: Reports: 10 or more systems reviewed and unremarkable except in HPI and below Const: Denies: fever(s), chills, change in appetite, change in weight, fatigue or malaise Card: Denies: chest pain, palpitations, irregular heart rhythm, edema, dyspnea on exertion, orthopnea or leg pain with exertion Resp: Denies: dyspnea, productive cough, non-productive cough, wheezing, stridor or chest congestion GI: Reports: nausea and vomiting; Denies: abdominal pain, dysphagia, diarrhea, constipation, bloating, GI cramping or hematochezia : Denies: flank pain, dysuria, urinary frequency, urinary urgency, urinary hesitancy, oliguria or hematuria Musc: Denies: neck pain, back pain, extremity pain, joint pain, joint swelling, joint redness, joint warmth or muscle weakness Neuro: Reports: headache(s), dizziness, involuntary movements and other (Neck pain); Denies: numbness in extremities, weakness in extremities, sensory changes, lack of coordination, difficulty walking, frequent falls, confusion, Slurred speech present, difficulty communicating thoughts or seizure-like activity Endo: Denies: polyuria, polydipsia or tired all the time Efrain/Lymph: Denies: easy bruising or easy bleeding PFSH ED PFSH: Medical History Cognitive dysfunction COPD (chronic obstructive pulmonary disease) Degenerative arthritis Degenerative joint disease of spine Essential hypertension GERD (gastroesophageal reflux disease) Hyperlipidemia Hypothyroidism Obstructive sleep apnea Peripheral neuropathy Posttraumatic stress disorder Prostate cancer metastatic to bone Type 2 diabetes mellitus Vitamin D deficiency Surgical History History of melanoma excision Melanoma in situ S/P angioplasty S/P cholecystectomy S/P partial thyroidectomy Patient has 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 S/P rotator cuff repair bilateral Family History Brother Heart disease Other CAD (coronary artery disease) Cancer Dementia Diabetes Hyperlipidemia Hypertension Lung disease Stroke Social History Smoking and tobacco status: former smoker Quit status (tobacco): has quit using tobacco Year quit tobacco: 1968 Former quit date comment: 2.5ppd x 21; also smoked cigars and pipes during this time Alcohol intake: never Substance/Drug Use: never Physical Exam Const: COMMON NORMALS: no acute distress, patient oriented x3 and alert GENERAL APPEARANCE: cooperative ORIENTATION/CONSCIOUSNESS: Yes awake, Yes oriented to person, Yes oriented to place and Yes oriented to time HENMT: COMMON NORMALS: normocephalic and atraumatic HEAD & SCALP: normocephalic and atraumatic FACE & SINUS: normal facial exam MOUTH: Normal oral and palatal mucosa present THROAT: posterior oropharynx normal Eye: COMMON NORMALS: Equal, round and reactive pupils present, EOMs intact bilaterally, conjunctivae normal and no scleral icterus GENERAL EYE: appearance normal, both eyes and all related structures ALIGNMENT: Yes alignment normal PERIORBITAL: periorbital findings normal CONJUNCTIVA: Yes conjunctivae normal PUPIL: Yes Equal, round and reactive pupils present Neck/C-Spine: COMMON NORMALS: full ROM GENERAL: Yes normal visual inspection Lymph: LYMPHATIC: no lymphadenopathy noted Chest: COMMONS NORMALS: normal inspection of the chest Breast/axilla inspection: Yes no chest deformity, asymmetry, normal contours, no nodules, masses, tenderness Resp: COMMON NORMALS: normal respiratory effort, No retractions, No use of accessory muscles and clear to auscultation bilaterally EFFORT & INSPECTION: Yes able to speak in complete sentences and Yes symmetric chest movement AUSCULTATION: clear to auscultation bilaterally Cardio: COMMON NORMALS: regular rate, regular rhythm and Peripheral pulses 2+ throughout RATE: regular rate RHYTHM: regular rhythm PERIPHERAL PULSES: Peripheral pulses 2+ throughout GI: COMMON NORMALS: Normal to inspection, nondistended, normoactive bowel sounds present, Soft to palpation, non-tender and No hepatosplenomegaly present INSPECTION: Yes normal to inspection AUSCULTATION: Yes normoactive bowel sounds PALPATION: Yes Soft to palpation and Yes No hepatosplenomegaly present RECTAL EXAM: Yes deferred Back/Pelvis: OTHER: Patient reports chronic back; no change Extremity: COMMON NORMALS: normal to inspection GENERAL: Yes normal exam except as noted Neuro: COMMON NORMALS: patient oriented x3 SENSORIUM/ORIENTATION: Yes alert, Yes oriented to person, Yes oriented to place and Yes oriented to time CRANIAL NERVES: Yes CN normal except as noted Psych: COMMON NORMALS: mental status grossly normal, Normal thought process present, cooperative, activity/motor behavior normal, denies homicidal ideation and denies suicidal ideation THOUGHT PROCESS: Normal thought process present Skin: COMMON NORMALS: no rashes or lesions noted, no wounds and turgor normal GENERAL SKIN EXAM: no rashes or lesions noted and turgor normal Course Vital Signs: Vital signs: Vital Signs Temperature 98.2 F 04/12/23 23:02 Pulse Rate 68 04/12/23 20:59 Respiratory Rate 18 04/12/23 20:59 Blood Pressure 124/53 04/12/23 21:02 Pulse Oximetry 95 04/12/23 23:02 Oxygen Delivery Me thod Room Air 04/12/23 23:02 MDM - Headache Medical Decision Making Patient was evaluated in the emergency department today for headache, hypotension, reported febrile illness. Differential diagnosis includes ICH, intracranial pathology (metastasis or meningitis), viral illness, To rule out differentials I obtained a stat head CT, chest x-ray, EKG. I also obtained urinalysis, CBC, CMP and a lactic acid. Blood cultures were obtained and sent. Attempted to work with family and patient who had concerns regarding his blood pressure and temperature. These appear to be within normal limits at this time but they are concerned we are missed reading what is normal for him. While concerned about this patient is also complaining of pain and disregards a request to hold his 30 mg of morphine extended release. This time I think the patient would be better served by my attending; Dr. Harrington is to assume care Lab Data 04/12/23 21:25 04/12/23 21: Radiology Impressions Chest X-Ray 04/12/23: IMPRESSION: No acute findings. Head CT 04/12/23: IMPRESSION: 1. No acute intracranial abnormality. 2. Sinus inflammatory changes. Laboratory Results WBC 8.0 10^3/uL (4.0-10.0) 04/12/23 21: RBC 3.98 10^6/uL (4.1-5.3) L 04/12/23 21: Hgb 11.4 g/dL (11.7-16.6) L 04/12/23: Hct 35.7 % (42.0-52.0) L 04/12/23 21: MCV 89.7 fl (80-94) 04/12/23 21: MCH 28.6 pg (28.0-34.0) 04/12/23: MCHC 31.9 g/dL (30.0-36.0) 04/12/23: RDW 14.2 % (12.1-15.1) 04/12/23: Plt Count 250 10^3/cmm (130-400) 04/12/23 21: MPV 9.9 fL (7.4-10.4) 04/12/23 21: Neut % (Auto) 80.0 % 04/12/23: Lymph % (Auto) 13.3 % 04/12/23: Dougherty % (Auto) 5.0 % 04/12/23 21: Eos % (Auto) 1.1 % 04/12/23: Baso % (Auto) 0.2 % 04/12/23: Neut # (Auto) 6.41 10^3/uL (1.8-7.7) 04/12/23: Lymph # (Auto) 1.1 10^3/uL (0.8-4.8) 04/12/23 21: Dougherty # (Auto) 0.4 10^3/uL (0.2-0.9) 04/12/23 21:25 Eos # (Auto) 0.1 10^3/uL (0.0-0.8) 04/12/23 21:25 Baso # (Auto) 0.0 10^3/uL (0.0-0.1) 04/12/23 21:25 Nucleated RBC % (auto) 0 % 04/12/23 21:25 Nucleated RBCs # 0.0 /100WBC 04/12/23 21:25 Sodium 137 mmol/L (136-145) 04/12/23 21:25 Potassium 4.9 mmol/L (3.5-5.1) 04/12/23 21:25 Chloride 102 mmol/L (98-107) 04/12/23 21:25 Carbon Dioxide 27 mmol/L (22-29) 04/12/23 21:25 Anion Gap 12.9 (5-19) 04/12/23 21:25 BUN 16 mg/dL (8-23) 04/12/23 21:25 Creatinine 1.2 mg/dL (0.7-1.2) 04/12/23 21:25 GFR Calculation Not Reportable 04/12/23 21:25 Glucose 137 mg/dL (65-115) H 04/12/23 21:25 POC Glucose 138 mg/dL (70-110) H 04/12/23 21:41 Calculated Osmolality 287 mOsm/kg (285-295) 04/12/23 21:25 Lactic Acid 2.5 mmol/L (0.5-2.2) H 04/12/23 21:25 Calcium 10.9 mg/dL (8.5-10.5) H 04/12/23 21:25 Total Bilirubin 0.3 mg/dL (0.15-1.2) 04/12/23 21:25 AST 31 U/L (0-40) 04/12/23 21:25 ALT 41 U/L (0-41) 04/12/23 21:25 Alkaline Phosphatase 64 U/L (40-130) 04/12/23 21:25 Total Protein 6.7 g/dL (6.6-8.7) 04/12/23 21:25 Albumin 4.1 g/dL (3.5-5.2) 04/12/23 21:25 Globulin 2.6 g/dL (1.3-4.6) 04/12/23 21:25 Urine Color Yellow (Yellow) 04/12/23 22:15 Urine Appearance Clear (CLEAR) 04/12/23 22:15 Urine pH 5 (5-7) 04/12/23 22:15 Ur Specific [place] 1.010 (1.005-1.030) 04/12/23 22:15 Urine Protein Trace (Negative) 04/12/23 22:15 Urine Glucose (UA) Norm (Normal) 04/12/23 22:15 Urine Ketones Negative (Negative) 04/12/23 22:15 Urine Blood Neg (Negative) 04/12/23 22:15 Urine Nitrate Negative (Negative) 04/12/23 22:15 Urine Bilirubin Neg (Negative) 04/12/23 22:15 Urine Urobilinogen Norm mg/dL (Negative) 04/12/23 22:15 Ur Leukocyte Esterase Negative (Negative) 04/12/23 22:15 Urine RBC 0-4 /hpf (0-2) H 04/12/23 22:15 Urine WBC 0-4 /hpf (0-5) H 04/12/23 22:15 Ur Squamous Epith Cells 0-4 /hpf (0-5) H 04/12/23 22:15 Amorphous Sediment Not Reportable 04/12/23 22:15 Urine Bacteria Trace /hpf (NONE) 04/12/23 22:15 Urine Mucus Trace /hpf 04/12/23 22:15 Coronavirus 229E (PCR) Not detected (NOT DETECT) 04/12/23 22:25 SARS-CoV-2 (PCR) Not detected (NOT DETECT) 04/12/23 22:25 Discharge Plan Discharge Patient Disposition: Home Clinical Impression: Headache, Vomiting Condition: Stable Prescriptions: No Action Spiriva with HandiHaler 18 mcg capsule, w/inhalation device 1 cap inhalation DAILY Qty: 30 3RF Rx Instructions: puncture 1 cap using device; one dose = 2 inhalations Breztri Aerosphere 160-9-4.8 mcg/actuation HFA aerosol inhaler 2 inh inhalation BID metoprolol succinate 50 mg tablet extended release 24 hr 50 mg PO DAILY sennosides-docusate sodium [Senna Plus] 8.6-50 mg tablet 2 tab-cap PO TID Qty: 180 1RF cetirizine [Zyrtec] 10 mg tablet 10 mg PO DAILY PRN hydrochlorothiazide 25 mg tablet 50 mg PO DAILY lubiprostone [Amitiza] 24 mcg capsule 24 mcg PO BID Qty: 60 1RF ondansetron 4 mg tablet,disintegrating 4 mg PO Q6H PRN (Reason: nausea and vomiting) Qty: 60 4RF tamsulosin 0.4 mg capsule 0.8 mg PO QAM Qty: 180 0RF Xtandi 40 mg tablet 80 mg PO DAILY Qty: 60 2RF gabapentin 100 mg capsule 100 mg PO TID PRN (Reason: neuropathic pain ) Qty: 60 0RF hydromorphone 4 mg tablet 4 - 8 mg PO QID PRN (Reason: pain) 30 Days Qty: 180 0RF morphine 30 mg tablet extended release 30 mg PO Q12H 30 Days Qty: 60 0RF hydralazine 50 mg tablet 50 mg PO TID Qty: 270 3RF nifedipine [Adalat CC] 30 mg Tablet Extended Release 30 mg PO BID bupropion HCl 150 mg Tablet Sustained-Release 12 Hr 150 mg PO BID colestipol 1 gram Tablet 2 g PO BID donepezil 10 mg Tablet 10 mg PO QPM loratadine 10 mg Tablet 10 mg PO QAM losartan 100 mg Tablet 100 mg PO QPM metformin 500 mg Tablet 500 mg PO BID multivitamin Tablet 1 tab PO QAM levothyroxine [Synthroid] 150 mcg Tablet 150 mcg PO DAILY Glucosamine Chondroitin 550-30-1 mg Capsule 1 cap PO DAILY Lupron Depot (3 month) 11.25 mg Syringe Kit See Rx Instructions .ROUTE .COMPLEX Rx Instructions: every 3 months denosumab 60 mg/mL Syringe See Rx Instructions .ROUTE .COMPLEX Rx Instructions: subcutaneously once a month nitroglycerin 0.4 mg Tablet, Sublingual 0.4 mg SUBLINGUAL Q5M PRN (Reason: chest pain) Rx Instructions: do not exceed 3 doses per episode cholecalciferol (vitamin D3) [Vitamin D3] 25 mcg (1,000 unit) Capsule 25 mcg PO QAM docusate sodium 50 mg capsule See Rx Instructions PO .COMPLEX Rx Instructions: 2caps by mouth in AM and 1cap by mouth in PM omega 5-wtr-fwz-fish oil [Fish Oil] 1,000 mg (120 mg-180 mg) capsule 1 cap PO BID SSD 1 % cream 1 applic TOPICAL DAILY lidocaine 5 % adhesive patch,medicated 1 patch topical Q12H PRN (Reason: Pain) Relistor 150 mg tablet 450 mg PO Q24H Qty: 20 0RF Discharge Orders: Discharge ED (Routine); Ordered 04/12/23 Ordered By: López Harrington Referrals: Melissa Ramirez FNP [Primary Care Provider] - 1-3 days Patient Instructions: Acute Headache (ED), Opioid Safety, Pain Management, Vomiting - Adult Activity Restrictions/Additional Instructions: Take your Zofran scheduled every 4 hours for the next 24 hours whether nauseated or not. Then you may use it as needed. Follow a liquid diet for the next 12 hours, and advance as tolerated if there is no vomiting. Return for fever, mental status changes, worsening headache, vomiting liquids or medications despite treatment, other concerning symptoms. Coding Level of Care Code ED Toll Collector Supervisor for Chg Fwd Documented by User: López Harrington, 04/13/23 06:16 HPI - Headache General: Chief Complaint: Headache Stated Complaint: headache Time Seen by Provider: 04/12/23 21:02 [facility] [place] ED PFSH: Medical History Cognitive dysfunction COPD (chronic obstructive pulmonary disease) Degenerative arthritis Degenerative joint disease of spine Essential hypertension GERD (gastroesophageal reflux disease) Hyperlipidemia Hypothyroidism Obstructive sleep apnea Peripheral neuropathy Posttraumatic stress disorder Prostate cancer metastatic to bone Type 2 diabetes mellitus Vitamin D deficiency Surgical History History of melanoma excision Melanoma in situ S/P angioplasty S/P cholecystectomy S/P partial thyroidectomy Patient has 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 S/P rotator cuff repair bilateral Family History Brother Heart disease Other CAD (coronary artery disease) Cancer Dementia Diabetes Hyperlipidemia Hypertension Lung disease Stroke Social History Smoking and tobacco status: former smoker Quit status (tobacco): has quit using tobacco Year quit tobacco: 1968 Former quit date comment: 2.5ppd x 21; also smoked cigars and pipes during this time Alcohol intake: never Substance/Drug Use: never Course Vital Signs: Vital signs: Vital Signs Temperature 98.2 F 04/12/23 23:02 Pulse Rate 68 04/12/23 20:59 Respiratory Rate 18 04/12/23 20:59 Blood Pressure 124/53 04/12/23 21:02 Pulse Oximetry 95 04/12/23 23:02 Oxygen Delivery Me thod Room Air 04/12/23 23:02 MDM - Headache Medical Decision Making Patient was evaluated in the emergency department today for headache, hypotension, reported febrile illness. Differential diagnosis includes ICH, intracranial pathology (metastasis or meningitis), viral illness, To rule out differentials I obtained a stat head CT, chest x-ray, EKG. I also obtained urinalysis, CBC, CMP and a lactic acid. Blood cultures were obtained and sent. Attempted to work with family and patient who had concerns regarding his blood pressure and temperature. These appear to be within normal limits at this time but they are concerned we are missed reading what is normal for him. While concerned about this patient is also complaining of pain and disregards a request to hold his 30 mg of morphine extended release. This time I think the patient would be better served by my attending; Dr. Harrington is to assume care Patient initially evaluated by Mrs. ProctorMORENA. I agree with her evaluation, history, and management. I have examined the patient as well. CBC is not remarkable. BMP is not remarkable. Chest x-ray is nonacute. Head CT shows no acute abnormality. There are sinus changes, but the patient reports that his an ongoing thing for him. Urinalysis is negative. His headache is significantly improved after Toradol and morphine here. He is hydrated with IV fluid. He is no longer feeling nauseated. He will be discharged. He will take his Zofran scheduled for the next 24 hours then as needed. To return for worsening symptoms. Lab Data 04/12/23 21:25 04/12/23 21:25 Radiology Impressions Chest X-Ray 04/12/23 21:34 IMPRESSION: No acute findings. Head CT 04/12/23 21:34 IMPRESSION: 1. No acute intracranial abnormality. 2. Sinus inflammatory changes. Laboratory Results WBC 8.0 10^3/uL (4.0-10.0) 04/12/23: RBC 3.98 10^6/uL (4.1-5.3) L 04/12/23 21: Hgb 11.4 g/dL (11.7-16.6) L 04/12/23: Hct 35.7 % (42.0-52.0) L 04/12/23: MCV 89.7 fl (80-94) 04/12/23: MCH 28.6 pg (28.0-34.0) 04/12/23: MCHC 31.9 g/dL (30.0-36.0) 04/12/23: RDW 14.2 % (12.1-15.1) 04/12/23: Plt Count 250 10^3/cmm (130-400) 04/12/23: MPV 9.9 fL (7.4-10.4) 04/12/23 21: Neut % (Auto) 80.0 % 04/12/23: Lymph % (Auto) 13.3 % 04/12/23: Dougherty % (Auto) 5.0 % 04/12/23: Eos % (Auto) 1.1 % 04/12/23: Baso % (Auto) 0.2 % 04/12/23: Neut # (Auto) 6.41 10^3/uL (1.8-7.7) 04/12/23: Lymph # (Auto) 1.1 10^3/uL (0.8-4.8) 04/12/23: Dougherty # (Auto) 0.4 10^3/uL (0.2-0.9) 04/12/23: Eos # (Auto) 0.1 10^3/uL (0.0-0.8) 04/12/23: Baso # (Auto) 0.0 10^3/uL (0.0-0.1) 04/12/23: Nucleated RBC % (auto) 0 % 04/12/23: Nucleated RBCs # 0.0 /100WBC 04/12/23 21:25 Sodium 137 mmol/L (136-145) 04/12/23 21:25 Potassium 4.9 mmol/L (3.5-5.1) 04/12/23 21:25 Chloride 102 mmol/L (98-107) 04/12/23 21:25 Carbon Dioxide 27 mmol/L (22-29) 04/12/23 21:25 Anion Gap 12.9 (5-19) 04/12/23 21:25 BUN 16 mg/dL (8-23) 04/12/23 21:25 Creatinine 1.2 mg/dL (0.7-1.2) 04/12/23 21:25 GFR Calculation Not Reportable 04/12/23 21:25 Glucose 137 mg/dL (65-115) H 04/12/23 21:25 POC Glucose 138 mg/dL (70-110) H 04/12/23 21:41 Calculated Osmolality 287 mOsm/kg (285-295) 04/12/23 21:25 Lactic Acid 2.5 mmol/L (0.5-2.2) H 04/12/23 21:25 Calcium 10.9 mg/dL (8.5-10.5) H 04/12/23 21:25 Total Bilirubin 0.3 mg/dL (0.15-1.2) 04/12/23 21:25 AST 31 U/L (0-40) 04/12/23 21:25 ALT 41 U/L (0-41) 04/12/23 21:25 Alkaline Phosphatase 64 U/L (40-130) 04/12/23 21:25 Total Protein 6.7 g/dL (6.6-8.7) 04/12/23 21:25 Albumin 4.1 g/dL (3.5-5.2) 04/12/23 21:25 Globulin 2.6 g/dL (1.3-4.6) 04/12/23 21:25 Urine Color Yellow (Yellow) 04/12/23 22:15 Urine Appearance Clear (CLEAR) 04/12/23 22:15 Urine pH 5 (5-7) 04/12/23 22:15 Ur Specific [place] 1.010 (1.005-1.030) 04/12/23 22:15 Urine Protein Trace (Negative) 04/12/23 22:15 Urine Glucose (UA) Norm (Normal) 04/12/23 22:15 Urine Ketones Negative (Negative) 04/12/23 22:15 Urine Blood Neg (Negative) 04/12/23 22:15 Urine Nitrate Negative (Negative) 04/12/23 22:15 Urine Bilirubin Neg (Negative) 04/12/23 22:15 Urine Urobilinogen Norm mg/dL (Negative) 04/12/23 22:15 Ur Leukocyte Esterase Negative (Negative) 04/12/23 22:15 Urine RBC 0-4 /hpf (0-2) H 04/12/23 22:15 Urine WBC 0-4 /hpf (0-5) H 04/12/23 22:15 Ur Squamous Epith Cells 0-4 /hpf (0-5) H 04/12/23 22:15 Amorphous Sediment Not Reportable 04/12/23 22:15 Urine Bacteria Trace /hpf (NONE) 04/12/23 22:15 Urine Mucus Trace /hpf 04/12/23 22:15 Coronavirus 229E (PCR) Not detected (NOT DETECT) 04/12/23 22:25 SARS-CoV-2 (PCR) Not detected (NOT DETECT) 04/12/23 22:25 Discharge Plan Discharge Patient Disposition: Home Clinical Impression: Headache, Vomiting Condition: Stable Prescriptions: No Action Spiriva with HandiHaler 18 mcg capsule, w/inhalation device 1 cap inhalation DAILY Qty: 30 3RF Rx Instructions: puncture 1 cap using device; one dose = 2 inhalations Omero Aerosphere 160-9-4.8 mcg/actuation HFA aerosol inhaler 2 inh inhalation BID metoprolol succinate 50 mg tablet extended release 24 hr 50 mg PO DAILY sennosides-docusate sodium [Senna Plus] 8.6-50 mg tablet 2 tab-cap PO TID Qty: 180 1RF cetirizine [Zyrtec] 10 mg tablet 10 mg PO DAILY PRN hydrochlorothiazide 25 mg tablet 50 mg PO DAILY lubiprostone [Amitiza] 24 mcg capsule 24 mcg PO BID Qty: 60 1RF ondansetron 4 mg tablet,disintegrating 4 mg PO Q6H PRN (Reason: nausea and vomiting) Qty: 60 4RF tamsulosin 0.4 mg capsule 0.8 mg PO QAM Qty: 180 0RF Xtandi 40 mg tablet 80 mg PO DAILY Qty: 60 2RF gabapentin 100 mg capsule 100 mg PO TID PRN (Reason: neuropathic pain ) Qty: 60 0RF hydromorphone 4 mg tablet 4 - 8 mg PO QID PRN (Reason: pain) 30 Days Qty: 180 0RF morphine 30 mg tablet extended release 30 mg PO Q12H 30 Days Qty: 60 0RF hydralazine 50 mg tablet 50 mg PO TID Qty: 270 3RF nifedipine [Adalat CC] 30 mg Tablet Extended Release 30 mg PO BID bupropion HCl 150 mg Tablet Sustained-Release 12 Hr 150 mg PO BID colestipol 1 gram Tablet 2 g PO BID donepezil 10 mg Tablet 10 mg PO QPM loratadine 10 mg Tablet 10 mg PO QAM losartan 100 mg Tablet 100 mg PO QPM metformin 500 mg Tablet 500 mg PO BID multivitamin Tablet 1 tab PO QAM levothyroxine [Synthroid] 150 mcg Tablet 150 mcg PO DAILY Glucosamine Chondroitin 550-30-1 mg Capsule 1 cap PO DAILY Lupron Depot (3 month) 11.25 mg Syringe Kit See Rx Instructions .ROUTE .COMPLEX Rx Instructions: every 3 months denosumab 60 mg/mL Syringe See Rx Instructions .ROUTE .COMPLEX Rx Instructions: subcutaneously once a month nitroglycerin 0.4 mg Tablet, Sublingual 0.4 mg SUBLINGUAL Q5M PRN (Reason: chest pain) Rx Instructions: do not exceed 3 doses per episode cholecalciferol (vitamin D3) [Vitamin D3] 25 mcg (1,000 unit) Capsule 25 mcg PO QAM docusate sodium 50 mg capsule See Rx Instructions PO .COMPLEX Rx Instructions: 2caps by mouth in AM and 1cap by mouth in PM omega 7-ybf-fam-fish oil [Fish Oil] 1,000 mg (120 mg-180 mg) capsule 1 cap PO BID SSD 1 % cream 1 applic TOPICAL DAILY lidocaine 5 % adhesive patch,medicated 1 patch topical Q12H PRN (Reason: Pain) Relistor 150 mg tablet 450 mg PO Q24H Qty: 20 0RF Discharge Orders: Discharge ED (Routine); Ordered 04/12/23 Ordered By: López Harrington Referrals: Melissa Ramirez FNP [Primary Care Provider] - 1-3 days Patient Instructions: Acute Headache (ED), Opioid Safety, Pain Management, Vomiting - Adult Activity Restrictions/Additional Instructions: Take your Zofran scheduled every 4 hours for the next 24 hours whether nauseated or not. Then you may use it as needed. Follow a liquid diet for the next 12 hours, and advance as tolerated if there is no vomiting. Return for fever, mental status changes, worsening headache, vomiting liquids or medications despite treatment, other concerning symptoms. Coding Level of Care Code ED Toll Collector Supervisor for Adrien Ruvalcaba
--- NOTE | 2023-04-12 21:34 | XRR_ITS ---
PROCEDURE INFORMATION: Exam: XR Chest Exam date and time: 04/12/2023 9:39 PM Age: 83 years old Clinical indication: Other: Hypotension; Additional info: Severe headache nausea vomiting and hypotension TECHNIQUE: Imaging protocol: Radiologic exam of the chest. Views: 1 view. COMPARISON: CR (CHEST, ) 02/05/2023 6:26 PM FINDINGS: Lungs: Unremarkable. No consolidation. Pleural spaces: Unremarkable. No pleural effusion. No pneumothorax. Heart/Mediastinum: Stable cardiomediastinal silhouette. Bones/joints: Right AC joint widening re-identified. No acute osseous injury seen. XR/XR chest 1V portable [id number] IMPRESSION: No acute findings.
--- NOTE | 2023-04-12 21:34 | CTR_ITS ---
PROCEDURE INFORMATION: Exam: CT Head Without Contrast Exam date and time: 04/12/2023 9:47 PM Age: 83 years old Clinical indication: Pain; Headache; Patient HX: LUI with n/v and hypotension. History of metastatic prostate cancer. ; Additional info: Severe headache nausea vomiting and hypotension TECHNIQUE: Imaging protocol: Computed tomography of the head without contrast. Radiation optimization: All CT scans at this facility use at least one of these dose optimization techniques: automated exposure control; mA and/or kV adjustment per patient size (includes targeted exams where dose is matched to clinical indication); or iterative reconstruction. REPORTING DATA: Count of CT and Cardiac NM exams in prior 12 months: This patient has received 2 known CTs and 0 known cardiac nuclear medicine studies in the 12 months prior to the current study. COMPARISON: CT head wo/w con [id number] 01/03/2023 9:44 PM RADIATION DOSE METRICS: Total DLP (mGy-cm): 1043.38 FINDINGS: Brain: No hemorrhage, mass effect or midline shift. No acute, major vascular distribution infarction identified. There are foci of decreased attenuation in the periventricular and subcortical white matter, likely representing chronic small vessel ischemic changes. Mild cerebral volume loss is present. No intra-axial or extra-axial fluid collection seen. Cerebral ventricles: No ventriculomegaly. Paranasal sinuses: There is mucosal thickening and partial opacification of the ethmoid air cells. Mastoid air cells: Visualized mastoid air cells are well aerated. Bones/joints: Unremarkable. No acute fracture. Soft tissues: Unremarkable. CT/CT head wo con* [id number] IMPRESSION: 1. No acute intracranial abnormality. 2. Sinus inflammatory changes.
--- NOTE | 2023-04-12 21:40 | ECG_ITS ---
[facility] Test Date: 2023-04-12 Pat Name: Andriy Gonzales Department: Room: Gender: Male [employer]oli[employer]: : 1940 Requested By: López Mae Order Number: [id number] Pierce MD: Tori Cole M.D. Measurements Intervals Myton Rate: 62 P: 42 TX: 232 QRS: -18 QRSD: 158 T: -10 QT: 433 QTc: 442 Interpretive Statements SINUS RHYTHM WITH FIRST DEGREE AV BLOCK RIGHT BUNDLE BRANCH BLOCK [120+ ms QRS DURATION, UPRIGHT V1, 40+ ms S IN I/aVL/V4/V5/V6] Compared to ECG 05/06/2022 22:38:14 No significant changes Electronically Signed On 04-13-2023 17:19:30 CDT by Tori Cole M.D. [id number]
[2023-04-12 21:44] LABS: Glucose Point of Care 138 mg/dL (70-110)
[2023-04-12 21:50] LABS: Basophils % 0.2 %; Eosinophils # 0.1 10^3/uL (0.0-0.8); Eosinophils % 1.1 %; Hematocrit 35.7 % (42.0-52.0); Hemoglobin 11.4 g/dL (11.7-16.6); Lymphocytes # 1.1 10^3/uL (0.8-4.8); Lymphocytes % 13.3 %; Mean Corpuscular HGB Conc 31.9 g/dL (30.0-36.0); Mean Corpuscular Hemoglobin 28.6 pg (28.0-34.0); Mean Corpuscular Volume 89.7 fl (80-94); Mean Platelet Volume 9.9 fL (7.4-10.4); Monocytes # 0.4 10^3/uL (0.2-0.9); Neutrophils # 6.41 10^3/uL (1.8-7.7); Nucleated Red Blood Cells % 0 %; Platelet Count 250 10^3/cmm (130-400); Red Blood Count 3.98 10^6/uL (4.1-5.3); Red Cell Distribution Width 14.2 % (12.1-15.1)
[2023-04-12 22:03] LABS: Alanine Aminotransferase 41 U/L (0-41); Albumin Level 4.1 g/dL (3.5-5.2); Alkaline Phosphatase 64 U/L (40-130); Anion Gap 12.9 (5-19); Aspartate Amino Transferase 31 U/L (0-40); Blood Urea Nitrogen 16 mg/dL (8-23); Calcium 10.9 mg/dL (8.5-10.5); Carbon Dioxide 27 mmol/L (22-29); Chloride 102 mmol/L (98-107); Creatinine Clr Calc Pharmacy 58.5337; Globulin 2.6 g/dL (1.3-4.6); Glucose 137 mg/dL (65-115); Lactic Sepsis W/Reflex 2.5 mmol/L (0.5-2.2); Osmolality Calculated 287 mOsm/kg (285-295); Potassium 4.9 mmol/L (3.5-5.1); Sodium 137 mmol/L (136-145); Total Bilirubin 0.3 mg/dL (0.15-1.2); Total Protein 6.7 g/dL (6.6-8.7)
[2023-04-12] MEDS: ondansetron 2 mg/ML SDV 2 mL 4 MG IVP ×2 (22:13→23:05)
[2023-04-12] MEDS: sodium chloride 0.9% 1,000 ML 999 ML IV (22:21)
[2023-04-12] MEDS: morphine 4 mg/mL SDV 1 mL IVP (23:01)
[2023-04-12] MEDS: ketorolac 30 mg/mL INJ 15 MG IVP (23:01)
[2023-04-12 23:02] VITALS: TEMP 36.8; O2SAT 95
[2023-04-12 23:35] LABS: Reflex Lactate Order REFLEX LACTIC ORDERD
[2023-04-12 23:57] LABS: Urine Appearance Clear (CLEAR); Urine Color Yellow (Yellow); pH Urine 5 (5-7)
[2023-04-12 23:58] LABS: Add Urine Culture? No; Add Urine Microscopic? YES; Bacteria Urine TRACE /hpf; Bilirubin Urine Neg (Negative); Blood Urine Neg (Negative); Glucose Urine UA Norm (Normal); Ketones Urine Negative (Negative); Leukocyte Esterase Urine Negative (Negative); Mucus Urine TRACE /hpf; Nitrate Urine Negative (Negative); Protein Urine Trace (Negative); RBC Urine 0-4 /hpf (0-2); Squamous Epithelial Cell Urine 0-4 /hpf (0-5); Urobilinogen Urine Norm (Negative); WBC Urine 0-4 /hpf (0-5)
[2023-04-13 00:22] LABS: Adenovirus Not Detected (NOT DETECT); Chlamydia Pneumoniae Not Detected (NOT DETECT); Coronavirus 229E,HKU1,NL63,OC4 Not Detected (NOT DETECT); Human Metapneumovirus Not Detected (NOT DETECT); Human Rhinovirus/Enterovirus Not Detected (NOT DETECT); Influenza A Not Detected (NOT DETECT); Influenza A H1 Not Detected (NOT DETECT); Influenza A H1-2009 Not Detected (NOT DETECT); Influenza A H3 Not Detected (NOT DETECT); Influenza B Not Detected (NOT DETECT); Mycoplasma Pneumoniae Not Detected (NOT DETECT); Parainfluenza Virus Type 1 Not Detected (NOT DETECT); Parainfluenza Virus Type 2 Not Detected (NOT DETECT); Parainfluenza Virus Type 3 Not Detected (NOT DETECT); Parainfluenza Virus Type 4 Not Detected (NOT DETECT); Respiratory Syncytial Virus A Not Detected (NOT DETECT); Respiratory Syncytial Virus B Not Detected (NOT DETECT); SARS-COV-2 Not Detected (NOT DETECT)
== END 2023-04-12 23:59 | disposition home or self-care (01) ==
PROVIDERS: Nurse Practitioner; Emergency Provider Emergency Medicine; PCP Nurse Practitioner
DX: R51.9 Headache, unspecified (principal); R11.11 Vomiting without nausea; Z20.822 Contact with and (suspected) exposure to COVID-19; Z87.891 Personal history of nicotine dependence; J44.9 Chronic obstructive pulmonary disease, unspecified; I10 Essential (primary) hypertension; E78.5 Hyperlipidemia, unspecified; E11.9 Type 2 diabetes mellitus without complications; Z85.46 Personal history of malignant neoplasm of prostate; Z85.830 Personal history of malignant neoplasm of bone
CPT/HCPCS: 36415; 36416; 70450; 71045; 80053; 81001; 82962; 83605; 85025; 87040; 87635; 93005; 96374; 96375; 96376; 99285; J1885; J2270; J2405; J7030

== ENCOUNTER 2023-04-15 14:02 | Oncology outpatient (recurring) (ONCR) | payer OTHER, SELFPAY ==
[2023-04-15 14:32] VITALS: BP 174/77; PULSE 65; RESP 18; TEMP 35.6; O2SAT 94
[2023-04-15] MEDS: denosumab 120 mg SDV SUBCUT (14:36)
== END 2023-04-23 23:59 | disposition home or self-care (01) ==
LOC: ONCMED 14:02
PROVIDERS: PCP Nurse Practitioner; Visit Provider Internal Medicine Medical Oncology
DX: C61 Malignant neoplasm of prostate (principal)
CPT/HCPCS: 96372; J0897

== ENCOUNTER 2023-05-13 14:10 | Oncology outpatient (recurring) (ONCR) | payer OTHER, SELFPAY ==
[2023-05-13 14:41] VITALS: BP 145/65; PULSE 60; RESP 18; TEMP 36.4; O2SAT 96
[2023-05-13] MEDS: denosumab 120 mg SDV SUBCUT (15:07)
[2023-05-13 16:42] VITALS: BP 145/65; PULSE 60; RESP 17; TEMP 36.4; O2SAT 96
== END 2023-05-23 23:59 | disposition home or self-care (01) ==
LOC: ONCMED 14:10
PROVIDERS: PCP Nurse Practitioner; Visit Provider Internal Medicine Medical Oncology
DX: C61 Malignant neoplasm of prostate (principal); C79.51 Secondary malignant neoplasm of bone; Z51.11 Encounter for antineoplastic chemotherapy
CPT/HCPCS: 96372; J0897

== ENCOUNTER 2023-06-10 12:54 | Oncology outpatient (recurring) (ONCR) | payer OTHER, SELFPAY ==
[2023-06-10 12:59] VITALS: BP 121/56; PULSE 64; RESP 16; TEMP 36.4; O2SAT 93
[2023-06-10 13:13] LABS: Basophils % 0.7 %; Eosinophils # 0.2 10^3/uL (0.0-0.8); Eosinophils % 3.2 %; Hematocrit 35.8 % (37-53); Lymphocytes # 1.4 10^3/uL (0.8-4.8); Lymphocytes % 24.3 %; Mean Corpuscular HGB Conc 32.4 g/dL (30-55); Mean Corpuscular Hemoglobin 29.1 pg (27-33); Mean Corpuscular Volume 89.7 fl (82-101); Mean Platelet Volume 9.5 fL (7.4-10.4); Monocytes # 0.4 10^3/uL (0.2-0.9); Monocytes % 6.7 %; Neutrophils % 64.7 %; Nucleated Red Blood Cells % 0 %; Platelet Count 225 10^3/cmm (157-399); Red Blood Count 3.99 10^6/uL (3.85-5.65); Red Cell Distribution Width 13.8 % (12.1-15.1); White Blood Count 5.71 10^3/uL (3.29-11.43)
[2023-06-10 13:51] LABS: Alanine Aminotransferase 46 U/L (0-41); Albumin Level 4.1 g/dL (3.5-5.2); Alkaline Phosphatase 65 U/L (40-130); Anion Gap 13.3 (5-19); Aspartate Amino Transferase 45 U/L (0-40); Blood Urea Nitrogen 16 mg/dL (8-23); Calcium 10.8 mg/dL (8.5-10.5); Carbon Dioxide 29 mmol/L (22-29); Chloride 101 mmol/L (98-107); Globulin 2.7 g/dL (1.3-4.6); Glucose 137 mg/dL (65-115); Osmolality Calculated 291 mOsm/kg (285-295); Potassium 4.3 mmol/L (3.5-5.1); Prostate Specific Antigen Scr 2.17 ng/mL (0-4); Sodium 139 mmol/L (136-145); Total Bilirubin 0.3 mg/dL (0.15-1.2); Total Protein 6.8 g/dL (6.6-8.7)
[2023-06-10] MEDS: leuprolide 22.5 mg Kit IM (15:38)
== END 2023-06-23 23:59 | disposition home or self-care (01) ==
PROVIDERS: PCP Nurse Practitioner; Visit Provider Internal Medicine Medical Oncology
DX: C61 Malignant neoplasm of prostate (principal); C79.51 Secondary malignant neoplasm of bone; Z79.818 Long term (current) use of other agents affecting estrogen receptors and estrogen levels; Z79.899 Other long term (current) drug therapy; Z87.891 Personal history of nicotine dependence; G89.3 Neoplasm related pain (acute) (chronic); Z79.891 Long term (current) use of opiate analgesic; J44.9 Chronic obstructive pulmonary disease, unspecified; Z51.11 Encounter for antineoplastic chemotherapy
CPT/HCPCS: 36415; 80053; 85025; 96402; 99214; G0103; J9217

== ENCOUNTER 2023-06-11 08:57 | Outpatient (CLI) | payer OTHER, SELFPAY ==
--- NOTE | 2023-06-11 09:30 | NM_ITS ---
WS: [id number] NUCLEAR MEDICINE BONE SCAN Radiopharmaceutical: 25.5 Tc-99m MDP mCi IV Injection site: Antecubital Postinjection imaging delay: 1 hr CLINICAL INFORMATION: rib pain COMPARISON: 01/21/2023 FINDINGS: Bone lesions: Persistent uptake in the LEFT anterior 7th and 8th ribs similar in appearance to 023. No evidence of progressed metastatic disease. Punctate focus of activity in the RIGHT humeral neck less prominent today Persistent faint tiny punctate focus of uptake in the LEFT T11 pedicle Persistent activity RIGHT mid to lower anterior ribs near the costovertebral junction is stable Soft tissue contours: Normal. Kidneys: Normal. Other findings: Digital arthritis both shoulders and knees. Prior postoperative changes bilateral TkA s. Degenerative uptake in the thoracic and lumbar spine. IMPRESSION: 1. No evidence of progressed or new osseous metastatic disease.
== END 2023-06-11 08:58 | disposition home or self-care (01) ==
PROVIDERS: PCP Nurse Practitioner; Visit Provider Internal Medicine Medical Oncology
DX: R07.81 Pleurodynia (principal)
CPT/HCPCS: 78306; A9561

== ENCOUNTER → 2023-06-12 08:40 | Outpatient (BNVA) | payer OTHER, SELFPAY | PROVIDERS: PCP Nurse Practitioner; Visit Provider Podiatrist Foot & Ankle Surgery | DX: B35.1 Tinea unguium (principal); E11.42 Type 2 diabetes mellitus with diabetic polyneuropathy; M20.41 Other hammer toe(s) (acquired), right foot; M20.42 Other hammer toe(s) (acquired), left foot; Z79.84 Long term (current) use of oral hypoglycemic drugs | CPT/HCPCS: 11721 ==

== ENCOUNTER → 2023-07-08 11:18 | Outpatient (BNVA) | payer OTHER, SELFPAY | PROVIDERS: PCP Nurse Practitioner; Visit Provider Internal Medicine Cardiovascular Disease | DX: I10 Essential (primary) hypertension (principal); Z87.891 Personal history of nicotine dependence | CPT/HCPCS: 99214 ==

== ENCOUNTER 2023-08-05 09:14 | Oncology outpatient (recurring) (ONCR) | payer OTHER, SELFPAY ==
[2023-08-05 09:18] VITALS: BP 131/60; PULSE 63; RESP 16; TEMP 36.1; O2SAT 95
[2023-08-05 09:32] LABS: Basophils % 0.5 %; Eosinophils # 0.2 10^3/uL (0.0-0.8); Eosinophils % 2.9 %; Lymphocytes # 1.5 10^3/uL (0.8-4.8); Lymphocytes % 22.1 %; Mean Corpuscular HGB Conc 32.9 g/dL (30-55); Mean Corpuscular Hemoglobin 29.8 pg (27-33); Mean Corpuscular Volume 90.7 fl (82-101); Mean Platelet Volume 9.4 fL (7.4-10.4); Monocytes # 0.6 10^3/uL (0.2-0.9); Monocytes % 8.3 %; Neutrophils % 65.9 %; Nucleated Red Blood Cells % 0 %; Platelet Count 227 10^3/cmm (157-399); Red Blood Count 3.86 10^6/uL (3.85-5.65); Red Cell Distribution Width 13.8 % (12.1-15.1); White Blood Count 6.66 10^3/uL (3.29-11.43)
[2023-08-05 10:05] LABS: Alanine Aminotransferase 42 U/L (0-41); Albumin Level 4.2 g/dL (3.5-5.2); Alkaline Phosphatase 66 U/L (40-130); Anion Gap 13.1 (5-19); Aspartate Amino Transferase 28 U/L (0-40); Blood Urea Nitrogen 17 mg/dL (8-23); Calcium 10.5 mg/dL (8.5-10.5); Carbon Dioxide 28 mmol/L (22-29); Chloride 102 mmol/L (98-107); Globulin 2.7 g/dL (1.3-4.6); Glucose 128 mg/dL (65-115); Osmolality Calculated 291 mOsm/kg (285-295); Potassium 4.1 mmol/L (3.5-5.1); Sodium 139 mmol/L (136-145); Total Bilirubin 0.4 mg/dL (0.15-1.2); Total Protein 6.9 g/dL (6.6-8.7)
== END 2023-08-23 23:59 | disposition home or self-care (01) ==
PROVIDERS: PCP Nurse Practitioner; Visit Provider Internal Medicine Medical Oncology
DX: Z51.11 Encounter for antineoplastic chemotherapy (principal); C61 Malignant neoplasm of prostate; C79.51 Secondary malignant neoplasm of bone; Z79.818 Long term (current) use of other agents affecting estrogen receptors and estrogen levels; Z79.899 Other long term (current) drug therapy; Z87.891 Personal history of nicotine dependence; G89.3 Neoplasm related pain (acute) (chronic); Z79.891 Long term (current) use of opiate analgesic; J44.9 Chronic obstructive pulmonary disease, unspecified
CPT/HCPCS: 36415; 80053; 84153; 85025; 99214

== ENCOUNTER 2023-09-07 09:32 | Oncology outpatient (recurring) (ONCR) | payer OTHER, SELFPAY ==
[2023-09-07 10:03] LABS: Basophils % 0.5 %; Eosinophils # 0.1 10^3/uL (0.0-0.8); Eosinophils % 1.7 %; Hematocrit 36.4 % (37-53); Lymphocytes % 17.7 %; Mean Corpuscular Hemoglobin 29.3 pg (27-33); Mean Platelet Volume 9.4 fL (7.4-10.4); Monocytes # 0.3 10^3/uL (0.2-0.9); Monocytes % 4.8 %; Neutrophils # 4.39 10^3/uL (1.8-7.7); Nucleated Red Blood Cells % 0 %; Platelet Count 230 10^3/cmm (157-399); Red Blood Count 4.09 10^6/uL (3.85-5.65); Red Cell Distribution Width 13.6 % (12.1-15.1); White Blood Count 5.86 10^3/uL (3.29-11.43)
[2023-09-07] MEDS: denosumab 120 mg SDV SUBCUT (10:43)
[2023-09-07] MEDS: leuprolide 22.5 mg Kit IM (10:45)
[2023-09-07 11:02] LABS: Alanine Aminotransferase 48 U/L (0-41); Albumin Level 4.2 g/dL (3.5-5.2); Alkaline Phosphatase 65 U/L (40-130); Aspartate Amino Transferase 39 U/L (0-40); Blood Urea Nitrogen 15 mg/dL (8-23); Calcium 10.4 mg/dL (8.5-10.5); Carbon Dioxide 24 mmol/L (22-29); Chloride 102 mmol/L (98-107); Creatinine Clr Calc Pharmacy 66.0748; Globulin 2.5 g/dL (1.3-4.6); Glucose 223 mg/dL (65-115); Osmolality Calculated 296 mOsm/kg (285-295); Sodium 139 mmol/L (136-145); Total Bilirubin 0.4 mg/dL (0.15-1.2); Total Protein 6.7 g/dL (6.6-8.7)
== END 2023-09-23 23:59 | disposition home or self-care (01) ==
PROVIDERS: PCP Nurse Practitioner; Visit Provider Internal Medicine Medical Oncology
DX: Z51.11 Encounter for antineoplastic chemotherapy (principal); C61 Malignant neoplasm of prostate; C79.51 Secondary malignant neoplasm of bone; Z79.818 Long term (current) use of other agents affecting estrogen receptors and estrogen levels; Z79.899 Other long term (current) drug therapy; Z87.891 Personal history of nicotine dependence; G89.3 Neoplasm related pain (acute) (chronic); Z79.891 Long term (current) use of opiate analgesic; J44.9 Chronic obstructive pulmonary disease, unspecified; Z53.9 Procedure and treatment not carried out, unspecified reason
CPT/HCPCS: 80053; 84153; 85025; 96372; 96402; 99214; J0897; J9217

== ENCOUNTER → 2023-09-29 13:27 | Outpatient (BNVA) | payer OTHER, SELFPAY | PROVIDERS: PCP Nurse Practitioner; Visit Provider Podiatrist Foot & Ankle Surgery | DX: B35.1 Tinea unguium (principal); E11.42 Type 2 diabetes mellitus with diabetic polyneuropathy; M20.41 Other hammer toe(s) (acquired), right foot; M20.42 Other hammer toe(s) (acquired), left foot; Z79.84 Long term (current) use of oral hypoglycemic drugs | CPT/HCPCS: 11721 ==

== ENCOUNTER 2023-10-05 09:25 | Oncology outpatient (recurring) (ONCR) | payer OTHER, SELFPAY ==
[2023-10-05 09:45] LABS: Basophils % 0.6 %; Eosinophils # 0.2 10^3/uL (0.0-0.8); Eosinophils % 3.7 %; Hematocrit 33.5 % (37-53); Lymphocytes % 20.8 %; Mean Corpuscular HGB Conc 31.9 g/dL (30-55); Mean Corpuscular Volume 90.8 fl (82-101); Mean Platelet Volume 9.2 fL (7.4-10.4); Monocytes # 0.4 10^3/uL (0.2-0.9); Monocytes % 7.2 %; Neutrophils # 3.27 10^3/uL (1.8-7.7); Neutrophils % 67.5 %; Nucleated Red Blood Cells % 0 %; Platelet Count 202 10^3/cmm (157-399); Red Blood Count 3.69 10^6/uL (3.85-5.65); Red Cell Distribution Width 13.8 % (12.1-15.1); White Blood Count 4.85 10^3/uL (3.29-11.43)
[2023-10-05 11:07] LABS: Alanine Aminotransferase 40 U/L (0-41); Alkaline Phosphatase 57 U/L (40-130); Aspartate Amino Transferase 31 U/L (0-40); Blood Urea Nitrogen 16 mg/dL (8-23); Calcium 9.9 mg/dL (8.5-10.5); Carbon Dioxide 26 mmol/L (22-29); Chloride 102 mmol/L (98-107); Creatinine Clr Calc Pharmacy 66.0748; Globulin 2.7 g/dL (1.3-4.6); Glucose 128 mg/dL (65-115); Osmolality Calculated 285 mOsm/kg (285-295); Sodium 136 mmol/L (136-145); Total Bilirubin 0.5 mg/dL (0.15-1.2); Total Protein 6.7 g/dL (6.6-8.7)
[2023-10-05] MEDS: denosumab 120 mg SDV SUBCUT (11:43)
== END 2023-10-22 23:59 | disposition home or self-care (01) ==
PROVIDERS: Visit Provider Internal Medicine Medical Oncology
DX: C61 Malignant neoplasm of prostate; C79.51 Secondary malignant neoplasm of bone; Z79.818 Long term (current) use of other agents affecting estrogen receptors and estrogen levels; Z79.899 Other long term (current) drug therapy; Z87.891 Personal history of nicotine dependence; J44.9 Chronic obstructive pulmonary disease, unspecified; R29.6 Repeated falls; G89.3 Neoplasm related pain (acute) (chronic); I10 Essential (primary) hypertension
CPT/HCPCS: 36415; 80053; 84153; 85025; 96372; 99214; J0897

== ENCOUNTER 2023-10-08 06:00 | Outpatient (RCR) | payer OTHER, SELFPAY | END 2023-10-22 23:59 | disposition home or self-care (01) | LOC: WPT 06:00 | PROVIDERS: Visit Provider Nurse Practitioner | DX: M62.81 Muscle weakness (generalized) (principal); R29.6 Repeated falls; R26.9 Unspecified abnormalities of gait and mobility | CPT/HCPCS: 97110; 97112; 97530 ==

== ENCOUNTER → 2023-10-14 09:48 | Outpatient (BNVA) | payer OTHER, SELFPAY | PROVIDERS: PCP Nurse Practitioner; Referring Provider Nurse Practitioner; Visit Provider Specialist | DX: M25.532 Pain in left wrist | CPT/HCPCS: 73110; 99214 ==

== ENCOUNTER 2023-10-20 06:00 | Outpatient (RCR) | payer OTHER, SELFPAY | END 2023-10-22 23:59 | disposition home or self-care (01) | LOC: WPT 06:00 | PROVIDERS: Visit Provider Specialist | DX: M25.532 Pain in left wrist (principal) | CPT/HCPCS: 97110; 97161 ==

== ENCOUNTER 2023-10-23 06:00 | Outpatient (RCR) | payer OTHER, SELFPAY | END 2023-11-22 23:59 | disposition home or self-care (01) | LOC: WPT 06:00 | PROVIDERS: Visit Provider Specialist | DX: M25.532 Pain in left wrist (principal) | CPT/HCPCS: 97110; 97140; 97530 ==

== ENCOUNTER 2023-10-23 06:00 | Outpatient (RCR) | payer OTHER, SELFPAY | END 2023-11-22 23:59 | disposition home or self-care (01) | LOC: WPT 06:00 | PROVIDERS: Visit Provider Nurse Practitioner | DX: R54 Age-related physical debility (principal) | CPT/HCPCS: 97110; 97112; 97530 ==

== ENCOUNTER 2023-11-12 12:50 | Oncology outpatient (recurring) (ONCR) | payer OTHER, SELFPAY | END 2023-11-22 23:59 | disposition home or self-care (01) | PROVIDERS: Visit Provider Internal Medicine Medical Oncology | DX: C61 Malignant neoplasm of prostate (principal); C79.51 Secondary malignant neoplasm of bone; Z79.811 Long term (current) use of aromatase inhibitors; Z79.891 Long term (current) use of opiate analgesic; I95.9 Hypotension, unspecified; G89.3 Neoplasm related pain (acute) (chronic) | CPT/HCPCS: 99214 ==

== ENCOUNTER 2023-11-23 06:00 | Outpatient (RCR) | payer OTHER, SELFPAY | END 2023-12-22 23:59 | disposition home or self-care (01) | LOC: WPT 06:00 | PROVIDERS: Visit Provider Nurse Practitioner | DX: R54 Age-related physical debility (principal) | CPT/HCPCS: 97110; 97112; 97530 ==

== ENCOUNTER 2023-12-02 10:45 | Outpatient (CLI) | payer OTHER, SELFPAY ==
[2023-12-02] MEDS: iohexol 350 mg/mL 500 mL Btl (per mL) PO (11:54)
--- NOTE | 2023-12-02 12:00 | CT_ITS ---
WS: [id number] CT ABDOMEN AND PELVIS WITH CONTRAST HISTORY: right lower back pain TECHNIQUE: Imaging performed of the abdomen and pelvis with IV contrast. Single phase imaging of the abdomen. Coronal and sagittal reformats are submitted. All CT scans at [facility] use at [address] one of these dose optimization techniques: automated exposure control; mA and/or kV adjustment per patient size (includes targeted exams where dose is matched to clinical indication); or iterative re construction. IV CONTRAST: Omnipaque 350; 100 mL IV. Oral contrast: Yes. DLP: 861.31 mGy.cm COMPARISON: 01/06/2022 Lower thorax: Lung bases are clear. Heart is normal size. No hiatal hernia. Liver/biliary system: Normal size with no intrahepatic dilatation. Gallbladder: Prior cholecystectomy. Pancreas: Normal size pancreas and pancreatic duct. No adjacent inflammation. Spleen: Normal size spleen. No mass or infarct. Adrenal glands: Well-circumscribed 2.6 x 1.6 cm mass RIGHT adrenal gland noted to be an adenoma on a prior unenhanced CT from 01/06/2022. Mild thickening of the LEFT gland. Right kidney: Normal. Left kidney: Tiny cortical hypodensity lower pole. Too small to characterize but may be a tiny cyst. Not definitely present on the prior study. No obstruction. Aorta: Mild atherosclerosis with no aneurysm. Lymphadenopathy: None. Free fluid: None. GI tract: Stomach is well distended with oral contrast. No small bowel obstruction. Appendix is merline l. Numerous diverticula in the descending and sigmoid colon without acute diverticulitis. Abdominal wall: Unremarkable abdominal wall. No hernia. Diastases ventral abdominal wall. Pelvis: No free fluid or adenopathy within the pelvis. Inguinal canals are patent bilaterally contain ing fat only. Bones: Patient has known metastatic bone disease from cough prostate cancer. No obvious progression o f sclerotic foci identified since 2021. Sclerotic changes within the ribs also. IMPRESSION: 1. Prior cholecystectomy. 2. Stable RIGHT adrenal adenoma. 3. Stable treated bone metastasis. No obvious progression since 01/06/2022. Repeat bone scan imaging may be of benefit to evaluate for new metastatic lesions. 4. No renal obstruction. 5. Mild sigmoid diverticulosis.
[2023-12-02] MEDS: iohexol 350 mg/mL 500 mL Btl (per mL) IV (12:08)
== END 2023-12-02 10:46 | disposition home or self-care (01) ==
PROVIDERS: Visit Provider Internal Medicine Medical Oncology
DX: M54.50 Low back pain, unspecified (principal); C61 Malignant neoplasm of prostate; C79.51 Secondary malignant neoplasm of bone; D35.01 Benign neoplasm of right adrenal gland; K57.30 Diverticulosis of large intestine without perforation or abscess without bleeding; Z90.49 Acquired absence of other specified parts of digestive tract
CPT/HCPCS: 74177; Q9967

== ENCOUNTER 2023-12-03 12:18 | Oncology outpatient (recurring) (ONCR) | payer OTHER, SELFPAY ==
[2023-12-01 14:56] LABS: Basophils % 0.5 %; Eosinophils # 0.3 10^3/uL (0.0-0.8); Eosinophils % 4.7 %; Hematocrit 34.7 % (37-53); Lymphocytes # 1.2 10^3/uL (0.8-4.8); Lymphocytes % 19.1 %; Mean Corpuscular HGB Conc 32.6 g/dL (30-55); Mean Corpuscular Hemoglobin 29.5 pg (27-33); Mean Corpuscular Volume 90.6 fl (82-101); Mean Platelet Volume 9.7 fL (7.4-10.4); Monocytes # 0.4 10^3/uL (0.2-0.9); Monocytes % 6.7 %; Neutrophils % 68.7 %; Nucleated Red Blood Cells % 0 %; Platelet Count 199 10^3/cmm (157-399); Red Blood Count 3.83 10^6/uL (3.85-5.65); Red Cell Distribution Width 13.8 % (12.1-15.1); White Blood Count 6.12 10^3/uL (3.29-11.43)
[2023-12-01 15:21] LABS: Alanine Aminotransferase 44 U/L (0-41); Alkaline Phosphatase 64 U/L (40-130); Blood Urea Nitrogen 15 mg/dL (8-23); Calcium 10.2 mg/dL (8.5-10.5); Carbon Dioxide 24 mmol/L (22-29); Chloride 104 mmol/L (98-107); Globulin 2.8 g/dL (1.3-4.6); Glucose 143 mg/dL (65-115); Osmolality Calculated 291 mOsm/kg (285-295); Sodium 139 mmol/L (136-145); Testosterone Total 7.3 ng/dL (193-740); Total Bilirubin 0.3 mg/dL (0.15-1.2); Total Protein 6.8 g/dL (6.6-8.7)
[2023-12-01 15:25] LABS: Anion Gap 15.2 (5-19); Aspartate Amino Transferase 37 U/L (0-40); Potassium 4.2 mmol/L (3.5-5.1)
== END 2023-12-22 23:59 | disposition home or self-care (01) ==
PROVIDERS: Visit Provider Internal Medicine Medical Oncology
DX: C79.51 Secondary malignant neoplasm of bone (principal); C61 Malignant neoplasm of prostate
CPT/HCPCS: 36415; 80053; 84153; 84403; 85025; 99214

== ENCOUNTER → 2023-12-15 09:10 | Outpatient (BNVA) | payer OTHER, SELFPAY | PROVIDERS: Referring Provider Physical Medicine & Rehabilitation; Visit Provider Anesthesiology Pain Medicine | DX: C61 Malignant neoplasm of prostate (principal); C79.51 Secondary malignant neoplasm of bone; M51.34 Other intervertebral disc degeneration, thoracic region; M50.30 Other cervical disc degeneration, unspecified cervical region | CPT/HCPCS: 99205 ==

== ENCOUNTER → 2023-12-22 12:47 | Outpatient (BNVA) | payer OTHER, SELFPAY | PROVIDERS: Visit Provider Podiatrist Foot & Ankle Surgery | DX: B35.1 Tinea unguium (principal); E11.42 Type 2 diabetes mellitus with diabetic polyneuropathy; M20.41 Other hammer toe(s) (acquired), right foot; M20.42 Other hammer toe(s) (acquired), left foot; Z79.84 Long term (current) use of oral hypoglycemic drugs | CPT/HCPCS: 11721 ==

== ENCOUNTER 2024-01-14 07:58 | Oncology outpatient (recurring) (ONCR) | payer OTHER, SELFPAY | END 2024-01-22 23:59 | disposition home or self-care (01) | LOC: ONCMED 07:58 | PROVIDERS: Visit Provider Internal Medicine Medical Oncology | DX: C61 Malignant neoplasm of prostate (principal); C79.51 Secondary malignant neoplasm of bone | CPT/HCPCS: 99213; 99214 ==

== ENCOUNTER 2024-02-04 14:15 | Oncology outpatient (recurring) (ONCR) | payer OTHER, SELFPAY ==
[2024-01-28 10:25] LABS: Basophils % 0.4 %; Eosinophils # 0.1 10^3/uL (0.0-0.8); Hematocrit 37.3 % (37-53); Lymphocytes # 1.2 10^3/uL (0.8-4.8); Lymphocytes % 14.1 %; Mean Corpuscular HGB Conc 31.9 g/dL (30-55); Mean Corpuscular Hemoglobin 28.8 pg (27-33); Mean Corpuscular Volume 90.3 fl (82-101); Mean Platelet Volume 10.2 fL (7.4-10.4); Monocytes # 0.4 10^3/uL (0.2-0.9); Monocytes % 4.8 %; Neutrophils # 6.47 10^3/uL (1.8-7.7); Neutrophils % 79.3 %; Nucleated Red Blood Cells % 0 %; Platelet Count 209 10^3/cmm (157-399); Red Blood Count 4.13 10^6/uL (3.85-5.65); Red Cell Distribution Width 13.8 % (12.1-15.1); White Blood Count 8.15 10^3/uL (3.29-11.43)
[2024-01-28 10:57] LABS: Alanine Aminotransferase 49 U/L (0-41); Albumin Level 4.1 g/dL (3.5-5.2); Alkaline Phosphatase 71 U/L (40-130); Blood Urea Nitrogen 13 mg/dL (8-23); Calcium 10.1 mg/dL (8.5-10.5); Carbon Dioxide 25 mmol/L (22-29); Chloride 104 mmol/L (98-107); Creatinine Clr Calc Pharmacy 71.8206; Glucose 157 mg/dL (65-115); Osmolality Calculated 295 mOsm/kg (285-295); Sodium 141 mmol/L (136-145); Testosterone Total 2.5 ng/dL (193-740); Total Bilirubin 0.3 mg/dL (0.15-1.2); Total Protein 7.1 g/dL (6.6-8.7)
[2024-01-28 10:59] LABS: Anion Gap 16.7 (5-19); Aspartate Amino Transferase 36 U/L (0-40); Potassium 4.7 mmol/L (3.5-5.1)
--- NOTE | 2024-01-28 11:22 | ONCRAD EPV_ITS ---
Radiation Oncology Established Patient Visit Patient: Andriy Gonzales [id number] : 1940 Age: 83 Sex: Male Dictated by: Dr. Serena Serra Date of Service: 01/28/2024 Referring Physician(s) : Beni Rocha M.D. Diagnosis: C61 - Malignant neoplasm of prostate, Diagnosed 10/10/2021 (Active) Stage IVB, TX, N0, M1b, P>=20, G4 C79.51 - Secondary malignant neoplasm of bone, Diagnosed 10/10/2021 (Active) Radiotherapy to Date: Course: Bone Met-Lt Rib, Treatment Site: Bone Met - 7th Lt Rib, Ref. ID: [id number], Energy: 15X, Dose/Fx (cGy): 400, #Fx: 5 / 5, Dose Correction (cGy): 0, Total Dose Delivered (cGy): 2,000, Start Date: 05/12/2022, End Date: 05/16/2022, Elapsed Days: 4 Current History: Patient has a several year history of metastatic prostate cancer. He currently is off all treatment. He has began having increased right rib pain and low back pain. He is here today to discuss additional radiation to these areas. [facility] did give [facility] clearance to undergo treatment. Current Medications: Advair Diskus, aspirin, bicalutamide, bumetanide, buPROPion HCl ER (SR), ciprofloxacin HCl, colestid, cVS Fish Oil, daily Vitamin, docusate Sodium, donepezil HCl, enzalutamide, glucosamine Chondroitin Complx, hydrALAZINE HCl, hydroCHLOROthiazide, hYDROcodone-Acetaminophen, hYDROcodone-Acetaminophen, loratadine, losartan Potassium, metFORMIN HCl, metoprolol Succinate, oxyCODONE HCl, oxyCODONE HCl, sulfamethoxazole-Trimethoprim, synthroid, tamsulosin HCl, tamsulosin HCl, tiotropium Sherman Monohydrate, vitamin D3. Allergies: Etodolac, Lovastatin, Niacin, NSAIDs, Zetia and Zocor. Current Complaints / Review of Systems: . Vital Signs: Performed on 01/28/2024 10:04 AM BMI - 35.008 kg/m2 (high), Height - 71 in, Weight - 251 lbs, Temperature - 96.3 f, Pulse - 58 /min (low), Respiration - 17 /min, O2 Sat - 95 % (low), Pain - 7, Fatigue - 5 and BP - 136/ 62 mm(hg)(/low). Physical Exam: General: Alert and oriented x 3. No acute distress. HEENT: Normocephalic atraumatic. Pupils are equal, sclera clear, extraocular muscles intact. LUNGS: Respiratory dates regular nonlabored. HEART: Regular rate and rhythm MUSCULOSKELETAL: He has palpable tenderness over the rib and low back ABDOMEN moderately protuberant . NEUROLOGIC he has significant dementia with short-term memory loss. Gait and speech are intact.. Performance Status: 60 Lab: None pending. Pathology: Primary, c61 - malignant neoplasm of prostate, Diagnosed 10/10/2021 (active) stage ivb, tx, n0, m1b, p>=20, g4 and Primary, c79.51 - secondary malignant neoplasm of bone, Diagnosed 10/10/2021 (active) . Imaging: See HPI Impression: Stage IV prostate cancer Plan: We talked today about the areas that are causing him the most discomfort. This is the right rib which radiates around his rib cage to the back is one of the 2 spots to give him the most trouble. The other is the lumbar sacral area. Based on his recent CT scan he does have metastatic lesions throughout most of his bones in the form of sclerotic areas. We talked about treatment disease to areas with a course of 2 weeks and treat them at the same time. He is familiar with the simulation process. He will undergo simulation today. Both he and his family were in agreement with the plan to proceed with treatment. His daughter is his primary caregiver she will be bringing him for treatment. Signed by: 01/28/2024 11:21:36 AM <<Signature on File>> Time spent with patient: CPT Code: CPT Code:
--- NOTE | 2024-02-02 15:12 | ONCRAD TMN_ITS ---
Radiation Oncology Weekly Treatment Management Patient: Andriy Gonzales MR#: [id number] : 1940 Attending Physician: Dr. Serena Serra Date of Service: 02/02/2024 Fractions: 1 out of 10 Referring Physician(s) : Beni Rocha M.D. Diagnosis: C61 - Malignant neoplasm of prostate, Diagnosed 10/10/2021 (Active) Stage IVB, TX, N0, M1b, P>=20, G4 C79.51 - Secondary malignant neoplasm of bone, Diagnosed 10/10/2021 (Active) Radiotherapy to date: Course: Rt Rib L1SI 2023, Treatment Site: L1SI 30Gy, Ref. ID: [id number], Energy: 15X, Dose/Fx (cGy): 300, #Fx: 10, Dose Correction (cGy): 0, Total Dose Delivered (cGy): 300, Start Date: 02/02/2024, Elapsed Days: 0 Course: Rt Rib L1SI 2023, Treatment Site: Rt Rib 30Gy, Ref. ID: [id number], Energy: 15X, Dose/Fx (cGy): 300, #Fx: 10, Dose Correction (cGy): 0, Total Dose Delivered (cGy): 300, Start Date: 02/02/2024, Elapsed Days: 0 Reason for visit: The patient is being seen today as part of their regularly scheduled weekly on treatment visits to assess for acute toxicities from radiotherapy. Review of Systems: He had no additional questions or concerns. His daughter was with him today. Vital Signs: Performed on 02/02/2024 2:36 PM BMI - 35.566 kg/m2 (high), Height - 71 in, Weight - 255 lbs, Temperature - 96.7 f, Pulse - 64 /min, Respiration - 17 /min, O2 Sat - 99 %, Pain - 4, Fatigue - 5 and BP - 186/ 75 mm(hg)(high/). Physical Exam: No changes on exam his daughter and I discussed skin care and she will get some aloe Imaging: Radiation therapy imaging related to accurate target localization (i.e. KV, MV and CBCT) was reviewed. Appropriate changes, if any, were made to ensure treatment accuracy. Plan: To put on his skin and use cortisone if it becomes itchy. Signed by: Dr. Serena Serra 02/02/2024 3:10:57 PM
== END 2024-02-21 23:59 | disposition home or self-care (01) ==
PROVIDERS: Visit Provider Internal Medicine Medical Oncology
DX: C61 Malignant neoplasm of prostate (principal); C79.51 Secondary malignant neoplasm of bone; R97.21 Rising PSA following treatment for malignant neoplasm of prostate; Z79.891 Long term (current) use of opiate analgesic; Z79.52 Long term (current) use of systemic steroids; Z79.818 Long term (current) use of other agents affecting estrogen receptors and estrogen levels
CPT/HCPCS: 36415; 77290; 77295; 77300; 77334; 77387; 77412; 80053; 84153; 84403; 85025; 99024; 99214; 99215

== ENCOUNTER → 2024-02-23 12:51 | Outpatient (BNVA) | payer OTHER, SELFPAY | PROVIDERS: PCP Nurse Practitioner; Visit Provider Podiatrist Foot & Ankle Surgery | DX: B35.1 Tinea unguium (principal); E11.42 Type 2 diabetes mellitus with diabetic polyneuropathy; M20.41 Other hammer toe(s) (acquired), right foot; M20.42 Other hammer toe(s) (acquired), left foot; Z79.84 Long term (current) use of oral hypoglycemic drugs | CPT/HCPCS: 11721 ==

== ENCOUNTER → 2024-06-23 14:05 | Outpatient (BNVA) | payer OTHER, SELFPAY | PROVIDERS: PCP Nurse Practitioner; Visit Provider Podiatrist Foot & Ankle Surgery | DX: B35.1 Tinea unguium (principal); E11.42 Type 2 diabetes mellitus with diabetic polyneuropathy; M20.41 Other hammer toe(s) (acquired), right foot; M20.42 Other hammer toe(s) (acquired), left foot; Z79.84 Long term (current) use of oral hypoglycemic drugs | CPT/HCPCS: 11721 ==